=== PATIENT | female | born 1960 | race Caucasian/White ===

== ENCOUNTER 2022-08-13 21:19 | Emergency (ER) | payer OTHER ==
--- OUTSIDE RECORDS SUMMARY | 2022-08-13 21:22 | XMS REPORT | Clinical Summary ---
:1960 Author Organization [facility] MD [facility] Address [address] [place] [address] Care Team Providers Name Role Phone Svetlana Talamantes MD Unavailable Allergies Not on File Medications Not on file Active Problems Not on file Encounters Date Type Specialty Care Team Description 06/30/2022 Telephone Patient Access Services Ina Melgar RN after 08/13/2021 Social History Tobacco Use Types Packs/Day Years Used Date Smoking Tobacco: Never Assessed Sex Assigned at Date Recorded Not on file Job Start Date Occupation Industry Not on file Not on file Not on file Last Filed Vital Signs Not on file Plan of Treatment Not on file Results Not on fileafter 08/13/2021 Insurance Payer Benefit Plan / Subscriber ID Effective Phone Address T ype Group Dates [facility] MEDICARE [id number] 2022-Prese [address] Medicare [place]ALTH[employer]ARE [place] [id number] Care Teams [employer] Machin[employer] Relationship Specialty Start Date End Date Svetlana Talamantes MD PCP - External Referring Otolaryngology 06/29/[address] [id number] (work)
--- OUTSIDE RECORDS SUMMARY | 2022-08-13 21:33 | XMS REPORT | Continuity of Care Document ---
:1960 Author Organization [facility] t Address [address] [place] [address] [address]. [address] [place] [address] Care Team Providers Name Role Phone Trung SULLIVAN, Eve Mcnulty Primary Care Physician SYSTEM, PROVIDER NOT IN Attending Clinician Unavailable Thor Fernandez Attending Clinician Unavailable Adan SULLIVAN, Shen Sneed Attending Clinician SHEN ARELLANO Attending Clinician Unavailable Aayush SULLIVAN, Malick Mac Attending Clinician [phone] Fatoumata Marie Attending Clinician Ina Melgar RN Attending Clinician Unavailable Vinita SULLIVAN, Juventino Zambrano Attending Clinician SHEN ARELLANO Attending Clinician Unavailable Cindy Guajardo RN Attending Clinician Unavailable SHEN ARELLANO Admitting Clinician Unavailable Payers Payer Name Policy Type Policy Number Effective Date Expiration Date [facility] [id number] 2021 00:00:00 CYNTHIA MENJIVAR [facility] [id number] ADVANTAGE [facility] Problems Condition Condition Condition Status Onset Resolution Last Treating Co mments Source Name Details Category Date Date Treatment Clinician Date [place] Disease Active 2021-[address] right right 2-02 [facility] parotid parotid 00:00: Medical gland gland 00 Center [place] [facility] Disease Active 2021-09 [facility] right right 0-03 st parotid parotid 00:00: Hospita gland gland 00 l Benign Benign Disease Active Methodi essential essential 12-23 HTN HTN 00:00: Hospita 00 l Insulin Insulin Disease Active Methodi resistance resistance 12-23 00:00: Hospita 00 l Mixed Mixed Disease Active Methodi hyperlipid hyperlipid 12-23 emia emia 00:00: Hospita 00 l Panic Panic Disease Active Methodi disorder disorder 12-23 00:00: Hospita 00 l [id number] Lymphocyto Problem Com mon sis [facility] [id number] Primary Problem Comm on osteoarthr Spirit itis of - CHI right knee [facility] [id number] Primary Problem Comm on osteoarthr Spirit itis of CHI left knee [facility] [id number] Arthritis Problem Co mmon [id number] of both Spirit knees [facility] [id number] Leukocytos Problem Co mmon is, Spirit unspecifie - CHI d type [facility] Urinary Urinary Problem Common incontinen incontinen Sp jus ce ce [facility] [id number] TRENT Problem Common (generaliz Spirit ed anxiety - CHI disorder) [facility] [id number] Hypercalce Problem Com mon ana [facility] [id number] Tobacco Problem Commo n use Spirit disorder - [facility] [id number] Essential Problem Comm on (primary) Spirit hypertensi - CHI on [facility] [id number] Morbid Problem Commo n 9104 (severe) Spirit obesity - CHI due to [facility] Increased Other Problem Common blood elevated Spirit leukocyte white - 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 40.0-44.9, [facility] [id number] Depression Problem Com mon , major, Spirit single - CHI episode, [facility] [id number] Bilateral Problem Com mon primary Spirit osteoarthr - CHI itis of [facility] [id number] GERD Problem Common without Spirit esophagiti - CHI s [facility] [id number] Migraine Problem Comm on without Spirit aura and - CHI without St status kes migrainosu Medica l s, not Center intractabl e White White Problem Common blood cell blood cell Sp jus abnormalit abnormalit - CHI y y [facility] [id number] Abnormal Problem Comm on mammogram Spirit - CHI [facility] Allergies, Adverse Reactions, Alerts Allergy Allergy Status Severity Reaction(s) Onset Inactive Treating Comm ents Source Name Type Date Date Clinician Adhesive Propensi Active Rash 2021-09 Please Method i Tape-Destinee ty to 0-[address] icones adverse 00:00: tape when Hospit a reaction 00 doing IVs l s to drug No Known Propensi Active Method i Drug ty to 4-19 st Allergie adverse 00:00: Hospita s reaction 00 l s to drug NO KNOWN Allergy Active [facility] Social History Social Habit Start Date Stop Date Quantity Comments Source History SDOH [facility] Alcohol Frequency [facility] History SDOH [facility] Alcohol Std Drinks [facility] History SDOH [facility] Alcohol Binge Medical Sof[facility] ter History of tobacco Cigarette Smoker [facility] use of Medicine Exposure to 2022-07-28 2022-08-[address] [facility] SARS-CoV-2 (event) 00:00:00 16:48:00 [facility] Alcohol intake 2022-08-07 2022-08-07 [facility] of alcohol Medical Center (finding) History SDOH 2022-07-21 2022-07-[address] [facility] Alcohol Comment 00:00:00 00:00:00 Medical C enter Cigarettes smoked 2022-07-21 2022-07-[address] [facility] current (pack per 00:00:00 00:00:00 Medical Center day) - Reported Tobacco use and 2022-07-21 2022-07-[address] [facility] kes exposure 00:00:00 00:00:00 Medical Center History SDOH 2022-06-10 2022-06-10 0 [facility] Physical Activity 00:00:00 00:00:00 of [facility] evOLED DPW History SDOH 2022-06-10 2022-06-10 0 [facility] ge Physical Activity 00:00:00 00:00:00 of [facility] evOLED MPS Cigarette 2022-06-10 2022-06-10 [facility] pack-years 00:00:00 00:00:00 of Medicine Sex Assigned At [address] [facility] [address] kes 00:00:00 00:00:00 Medical Center Smoking Status Start Date Stop Date Source Current every day smoker 2022-07-21 00:00:00 [facility] Tobacco smoking consumption [facility] unknown Medications Ordered Filled Start Stop Current Ordering Indication Dosage Frequency Signature Comments Components Source Medication Medication Date Date Medication? Clinician (SIG) Name Name valsartan 2021-09 Yes 160mg QD Take [address] (DIOVAN) 2-03 mg by Lukes 160 MG 10:49: mouth Medical tablet 15 daily. [place] metoprolol 2021-09 Yes QD Take by [facility] shah-hydrochl 2-03 mouth Lukes orothiaz 10:49: daily. Medical 50-12.5 mg 15 [place] Tb24 amitriptyli 2021-09 Yes 100mg QD Take [address] (ELAVIL) 2-03 mg by Lukes 100 MG 10:49: mouth Medical tablet 15 nightly. [place] docusate 2021-09- Yes 100mg Q.5D Take 1 CHI S t sodium 2- 12-13 capsule Lukes (COLACE) 00:00: 23:59 (100 mg Medic al 100 MG 00 :00 total) by Center capsule mouth 2 (two) times daily for 10 days. ondansetron 2021-09- Yes 4mg Take [address] (ZOFRAN-ODT 2- 12-10 tablet (4 Reina kes ) 4 MG 00:00: 23:59 mg total) Medic al disintegrat 00 :00 by mouth Cent er ing tablet every 8 (eight) hours as needed for Nausea for up to 7 days. valsartan 2021-09 Yes 160mg QD Take [address] (DIOVAN) 2-02 mg by Lukes 160 MG 07:16: mouth Medical tablet 35 daily. [place] metoprolol 2021-09 Yes QD Take by [facility] shah-hydrochl 2-02 mouth Lukes orothiaz 07:16: daily. Medical 50-12.5 mg [address] [place] [address] amitriptyli 2021-09 Yes 100mg QD Take [address] (ELAVIL) 2-02 mg by Lukes 100 MG 07:16: mouth Medical tablet 35 nightly. [place] valsartan 2021-09 Yes 160mg QD Take [address] (DIOVAN) 2-02 mg by Lukes 160 MG 07:16: mouth Medical tablet 35 daily. [place] metoprolol 2021-09 Yes QD Take by [facility] shah-hydrochl 2-02 mouth Lukes orothiaz 07:16: daily. Medical 50-12.5 mg [address] [place] [address] amitriptyli 2021-09 Yes 100mg QD Take [address] [facility] (ELAVIL) 2-02 mg by Lukes 100 MG 07:16: mouth Medical tablet 35 nightly. [place] HYDROcodone 2021-09- Yes 1{tbl} Take [address] -acetaminop 2-02 12-12 tablet by Reina sheehan ([facility]) 00:00: 23:59 mouth Medi stephanie 10-325 mg 00 :00 every 6 Center per tablet (six) hours as needed for Pain for up to 10 days. Max Daily Amount: 4 tablets valsartan 2021-09 Yes 160mg QD Take [address] (DIOVAN) 1-15 mg by Lukes 160 MG 14:34: mouth Medical tablet 39 daily. [place] metoprolol 2021-09 Yes QD Take by [facility] shah-hydrochl 1-15 mouth Lukes orothiaz 14:34: daily. Medical 50-12.5 mg [address] [place] [address] amitriptyli 2021-09 Yes 100mg QD Take [address] (ELAVIL) 1-15 mg by Lukes 100 MG 14:34: mouth Medical tablet 39 nightly. [place] amitriptyli 2021-09 Yes 100mg QD 1 tablet M ethodi ne (ELAVIL) 0-07 ([address] 100 MG 10:59: total) Hospita tablet 19 nightly. l amitriptyli 2021-09 Yes 100mg QD 1 tablet M ethodi ne (ELAVIL) 0-07 ([address] 100 MG 10:59: total) Hospita tablet 19 nightly. l valsartan 2021-09 Yes [facility] (DIOVAN) 0-05 [place] 160 MG 14:55: of tablet 32 Medicin e Metoprolol- 2021-09 Yes [facility] Hydrochloro 0-05 [place] thiazide 14:55: of 50-12.5 MG 32 Medicin TB24 e Hyalgan 20 Hyalgan 20 2021-09 No 20mg C ommon mg mg 0-04 Spirit 00:00: - CHI 00 [facility] Hyalgan 20 Hyalgan 20 2021-09 No 20mg C ommon mg mg 0-04 Spirit 00:00: - CHI 00 [facility] Hyalgan 20 Hyalgan 20 2021-09 No 20mg C ommon mg mg 0-04 Spirit 00:00: - CHI 00 [facility] Hyalgan 20 Hyalgan 20 2021-09 No 20mg C ommon mg mg 0-04 Spirit 00:00: - CHI 00 [facility] Hyalgan 20 Hyalgan 20 2021-09 No 20mg C ommon mg mg 0-04 Spirit 00:00: - CHI 00 [facility] Hyalgan 20 Hyalgan 20 2021-09 No 20mg C ommon mg mg 0-04 Spirit 00:00: - CHI 00 [facility] Hyalgan 20 Hyalgan 20 2021-09 No 20mg C ommon mg mg 0-04 Spirit 00:00: - CHI 00 [facility] Hyalgan 20 Hyalgan 20 2021-09 No 20mg C ommon mg mg 0-04 Spirit 00:00: - CHI 00 [facility] Hyalgan 20 Hyalgan 20 2021-09 No 20mg C ommon mg mg 0-04 Spirit 00:00: - CHI 00 [facility] Hyalgan 20 Hyalgan 20 2021-09 No 20mg C ommon mg mg 0-04 Spirit 00:00: - CHI 00 [facility] Hyalgan 20 Hyalgan 20 2021-09 No 20mg C ommon mg mg 0-04 Spirit 00:00: - CHI 00 [facility] Hyalgan 20 Hyalgan 20 2021-09 No 20mg C ommon mg mg 0-04 Spirit 00:00: - CHI 00 [facility] Hyalgan 20 Hyalgan 20 2021-09 No 20mg C ommon mg mg 0-04 Spirit 00:00: - CHI 00 [facility] Hyalgan 20 Hyalgan 20 2021-09 No 20mg C ommon mg mg 0-04 Spirit 00:00: - CHI 00 [facility] Hyalgan 20 Hyalgan 20 2021-09 No 20mg C ommon mg mg 0-04 Spirit 00:00: - CHI 00 [facility] Hyalgan 20 Hyalgan 20 2021-09 No 20mg C ommon mg mg 0-04 Spirit 00:00: - CHI 00 [facility] Hyalgan 20 Hyalgan 20 2021-09 No 20mg C ommon mg mg 0-04 Spirit 00:00: - CHI 00 [facility] Hyalgan 20 Hyalgan 20 2021-09 No 20mg C ommon mg mg 0-04 Spirit 00:00: - CHI 00 [facility] Hyalgan 20 Hyalgan 20 2021-09 No 20mg C ommon mg mg 0-04 Spirit 00:00: - CHI 00 [facility] Hyalgan 20 Hyalgan 20 2021-09 No 20mg C ommon mg mg 0-04 Spirit 00:00: - CHI 00 [facility] Hyalgan 20 Hyalgan 20 2021-09 No 20mg C ommon mg mg 0-04 Spirit 00:00: - CHI 00 [facility] Hyalgan 20 Hyalgan 20 2021-09 No 20mg C ommon mg mg 0-04 Spirit 00:00: - CHI 00 [facility] Hyalgan 20 Hyalgan 20 2021-09 No 20mg C ommon mg mg 0-04 Spirit 00:00: - CHI 00 [facility] Hyalgan 20 Hyalgan 20 2021-09 No 20mg C ommon mg mg 0-04 Spirit 00:00: - CHI 00 [facility] Hyalgan 20 Hyalgan 20 2021-09 No 20mg C ommon mg mg 0-04 Spirit 00:00: - CHI 00 [facility] Hyalgan 20 Hyalgan 20 2021-09 No 20mg C ommon mg mg 0-04 Spirit 00:00: - CHI 00 [facility] Hyalgan 20 Hyalgan 20 2021-1 No 20mg C ommon mg mg 0-04 Spirit 00:00: - CHI [facility] Hyalgan 20 Hyalgan 20 2021-1 No 20mg C ommon mg mg 0-04 Spirit 00:00: - CHI [facility] Hyalgan 20 Hyalgan 20 2021-1 No 20mg C ommon mg mg 004 Spirit 00:00: - CHI [facility] Hyalgan 20 Hyalgan 20 2021-1 No 20mg C ommon mg mg 0 Spirit 00:00: - CHI 00 [facility] levofloxaci 2021-0 Yes [facility] [employer] (LEVAQUIN) 00:00: of 750 MG 00 Medicin tablet e Hyalgan 20 Hyalgan 20 2021-0 No 20mg C ommon mg mg 06-01 Spirit 00:00: - CHI [facility] Hyalgan 20 Hyalgan 20 2021-0 No 20mg C ommon mg mg 06-01 Spirit 00:00: - CHI [facility] Hyalgan 20 Hyalgan 20 2021-0 No 20mg C ommon mg mg 06-01 Spirit 00:00: - CHI [facility] Hyalgan 20 Hyalgan 20 2021-0 No 20mg C ommon mg mg 06-01 Spirit 00:00: - CHI [facility] Hyalgan 20 Hyalgan 20 2021-0 No 20mg C ommon mg mg 06-01 Spirit 00:00: - CHI [facility] Hyalgan 20 Hyalgan 20 2021-0 No 20mg C ommon mg mg 06-01 Spirit 00:00: - CHI [facility] Hyalgan 20 Hyalgan 20 2021-0 No 20mg C ommon mg mg 06-01 Spirit 00:00: - CHI [facility] Hyalgan 20 Hyalgan 20 2021-0 No 20mg C ommon mg mg 06-01 Spirit 00:00: - CHI [facility] Hyalgan 20 Hyalgan 20 2021-0 No 20mg C ommon mg mg 06-01 Spirit 00:00: - CHI [facility] Hyalgan 20 Hyalgan 20 2021-0 No 20mg C ommon mg mg 06-01 Spirit 00:00: - CHI 00 [facility] Hyalgan 20 Hyalgan 20 2021-0 No 20mg C ommon mg mg 06-01 Spirit 00:00: - CHI [facility] Hyalgan 20 Hyalgan 20 2021-0 No 20mg C ommon mg mg 06-01 Spirit 00:00: - CHI [facility] Hyalgan 20 Hyalgan 20 2021-0 No 20mg C ommon mg mg 06-01 Spirit 00:00: - CHI [facility] Hyalgan 20 Hyalgan 20 2021-0 No 20mg C ommon mg mg 06-01 Spirit 00:00: - CHI [facility] Hyalgan 20 Hyalgan 20 2021-0 No 20mg C ommon mg mg 06-01 Spirit 00:00: - CHI [facility] Hyalgan 20 Hyalgan 20 2021-0 No 20mg C ommon mg mg 06-01 Spirit 00:00: - CHI [facility] Hyalgan 20 Hyalgan 20 2021-0 No 20mg C ommon mg mg 06-01 Spirit 00:00: - CHI [facility] Hyalgan 20 Hyalgan 20 2021-0 No 20mg C ommon mg mg 06-01 Spirit 00:00: - CHI [facility] Hyalgan 20 Hyalgan 20 2021-0 No 20mg C ommon mg mg 06-01 Spirit 00:00: - CHI [facility] Hyalgan 20 Hyalgan 20 2021-0 No 20mg C ommon mg mg 06-01 Spirit 00:00: - CHI [facility] Hyalgan 20 Hyalgan 20 2021-0 No 20mg C ommon mg mg 06-01 Spirit 00:00: - CHI [facility] Hyalgan 20 Hyalgan 20 2021-0 No 20mg C ommon mg mg 06-01 Spirit 00:00: - CHI [facility] Hyalgan 20 Hyalgan 20 2021-0 No 20mg C ommon mg mg 06-01 Spirit 00:00: - CHI [facility] Hyalgan 20 Hyalgan 20 2021-0 No 20mg C ommon mg mg 06-01 Spirit 00:00: - CHI [facility] Hyalgan 20 Hyalgan 20 2021-0 No 20mg C ommon mg mg 06-01 Spirit 00:00: - CHI [facility] Hyalgan 20 Hyalgan 20 2021-0 No 20mg C ommon mg mg 06-01 Spirit 00:00: - CHI [facility] Hyalgan 20 Hyalgan 20 2021-0 No 20mg C ommon mg mg 06-01 Spirit 00:00: - CHI [facility] Hyalgan 20 Hyalgan 20 2021-0 No 20mg C ommon mg mg 06-01 Spirit 00:00: - CHI [facility] Hyalgan 20 Hyalgan 20 2021-0 No 20mg C ommon mg mg 06-01 Spirit 00:00: - CHI [facility] Hyalgan 20 Hyalgan 20 2021-0 No 20mg C ommon mg mg 06-01 Spirit 00:00: - CHI [facility] Hyalgan 20 Hyalgan 20 2021-0 No 20mg C ommon mg mg 06-01 Spirit 00:00: - CHI [facility] Hyalgan 20 Hyalgan 20 2021-0 No 20mg C ommon mg mg 06-01 Spirit 00:00: - CHI [facility] Hyalgan 20 Hyalgan 20 2021-0 No 20mg C ommon mg mg 06-01 Spirit 00:00: - CHI [facility] Hyalgan 20 Hyalgan 20 2021-0 No 20mg C ommon mg mg 06-01 Spirit 00:00: - CHI [facility] Hyalgan 20 Hyalgan 20 2021-0 No 20mg C ommon mg mg 06-01 Spirit 00:00: - CHI [facility] Hyalgan 20 Hyalgan 20 2021-0 No 20mg C ommon mg mg 06-01 Spirit 00:00: - CHI [facility] Hyalgan 20 Hyalgan 20 2021-0 No 20mg C ommon mg mg 06-01 Spirit 00:00: - CHI [facility] Hyalgan 20 Hyalgan 20 2021-0 No 20mg C ommon mg mg 06-01 Spirit 00:00: - CHI [facility] Kenalog Kenalog 2021-0 No 40mg Common (Triamcinol (Triamcinol 9- S pirit one) one) 00:00: - CHI 00 [facility] Naropin Naropin 2021-0 No 1mg Common (Ropivacain (Ropivacain 9-19 S pirit e HCl) e HCl) 00:00: - CHI [facility] Hyalgan 20 Hyalgan 20 2021-0 No 20mg C ommon mg mg 05-25 Spirit 00:00: - CHI [facility] Kenalog Kenalog 2021-0 No 40mg Common (Triamcinol (Triamcinol 9-19 S pirit one) one) 00:00: - CHI 00 [facility] Naropin Naropin 2021-0 No 1mg Common (Ropivacain (Ropivacain 9-19 S pirit e HCl) e HCl) 00:00: - CHI [facility] Hyalgan 20 Hyalgan 20 2021-0 No 20mg C ommon mg mg 05-25 Spirit 00:00: - CHI [facility] Kenalog Kenalog 2021-0 No 40mg Common (Triamcinol (Triamcinol 9-19 S pirit one) one) 00:00: - CHI 00 [facility] Kenalog Kenalog 2021-0 No 40mg Common (Triamcinol (Triamcinol 9-19 S pirit one) one) 00:00: - CHI [facility] Naropin Naropin 2021-0 No 1mg Common (Ropivacain (Ropivacain 9-19 S pirit e HCl) e HCl) 00:00: - CHI [facility] Hyalgan 20 Hyalgan 20 2021-0 No 20mg C ommon mg mg 05-25 Spirit 00:00: - CHI [facility] Naropin Naropin 2021-0 No 1mg Common (Ropivacain (Ropivacain 9-19 S pirit e HCl) e HCl) 00:00: - CHI [facility] Kenalog Kenalog 2021-0 No 40mg Common (Triamcinol (Triamcinol 9-19 S pirit one) one) 00:00: - CHI [facility] Naropin Naropin 2021-0 No 1mg Common (Ropivacain (Ropivacain 9-19 S pirit e HCl) e HCl) 00:00: - CHI [facility] Hyalgan 20 Hyalgan 20 2021-0 No 20mg C ommon mg mg 05-25 Spirit 00:00: - CHI [facility] Hyalgan 20 Hyalgan 20 2021-0 No 20mg C ommon mg mg 05-25 Spirit 00:00: - CHI [facility] Kenalog Kenalog 2021-0 No 40mg Common (Triamcinol (Triamcinol 9-19 S pirit one) one) 00:00: - CHI 00 [facility] Naropin Naropin 2021-0 No 1mg Common (Ropivacain (Ropivacain 9-19 S pirit e HCl) e HCl) 00:00: - CHI [facility] Hyalgan 20 Hyalgan 20 2021-0 No 20mg C ommon mg mg 05-25 Spirit 00:00: - CHI [facility] Kenalog Kenalog 2021-0 No 40mg Common (Triamcinol (Triamcinol 9-19 S pirit one) one) 00:00: - CHI [facility] Naropin Naropin 2021-0 No 1mg Common (Ropivacain (Ropivacain 9-19 S pirit e HCl) e HCl) 00:00: - CHI 00 [facility] Hyalgan 20 Hyalgan 20 2021-0 No 20mg C ommon mg mg 05-25 Spirit 00:00: - CHI [facility] Kenalog Kenalog 2021-0 No 40mg Common (Triamcinol (Triamcinol 9-19 S pirit one) one) 00:00: - CHI [facility] Naropin Naropin 2021-0 No 1mg Common (Ropivacain (Ropivacain 9-19 S pirit e HCl) e HCl) 00:00: - CHI [facility] Hyalgan 20 Hyalgan 20 2021-0 No 20mg C ommon mg mg 05-25 Spirit 00:00: - CHI [facility] Kenalog Kenalog 2021-0 No 40mg Common (Triamcinol (Triamcinol 9-19 S pirit one) one) 00:00: - CHI 00 [facility] Naropin Naropin 2021-0 No 1mg Common (Ropivacain (Ropivacain 9-19 S pirit e HCl) e HCl) 00:00: - CHI 00 [facility] Hyalgan 20 Hyalgan 20 2021-0 No 20mg C ommon mg mg 05-25 Spirit 00:00: - CHI [facility] Kenalog Kenalog 2021-0 No 40mg Common (Triamcinol (Triamcinol 9-19 S pirit one) one) 00:00: - CHI 00 [facility] Naropin Naropin 2021-0 No 1mg Common (Ropivacain (Ropivacain 9-19 S pirit e HCl) e HCl) 00:00: - CHI 00 [facility] Hyalgan 20 Hyalgan 20 2021-0 No 20mg C ommon mg mg 05-25 Spirit 00:00: - CHI [facility] Kenalog Kenalog 2021-0 No 40mg Common (Triamcinol (Triamcinol 9-19 S pirit one) one) 00:00: - CHI [facility] Naropin Naropin 2021-0 No 1mg Common (Ropivacain (Ropivacain 9-19 S pirit e HCl) e HCl) 00:00: - CHI 00 [facility] Hyalgan 20 Hyalgan 20 2021-0 No 20mg C ommon mg mg 05-25 Spirit 00:00: - CHI [facility] Kenalog Kenalog 2021-0 No 40mg Common (Triamcinol (Triamcinol 9-19 S pirit one) one) 00:00: - CHI [facility] Naropin Naropin 2021-0 No 1mg Common (Ropivacain (Ropivacain 9-19 S pirit e HCl) e HCl) 00:00: - CHI [facility] Hyalgan 20 Hyalgan 20 2021-0 No 20mg C ommon mg mg 05-25 Spirit 00:00: - CHI [facility] Kenalog Kenalog 2021-0 No 40mg Common (Triamcinol (Triamcinol 9-19 S pirit one) one) 00:00: - CHI 00 [facility] Naropin Naropin 2021-0 No 1mg Common (Ropivacain (Ropivacain 9-19 S pirit e HCl) e HCl) 00:00: - CHI 00 [facility] Hyalgan 20 Hyalgan 20 2021-0 No 20mg C ommon mg mg 05-25 Spirit 00:00: - CHI [facility] Kenalog Kenalog 2021-0 No 40mg Common (Triamcinol (Triamcinol 9-19 S pirit one) one) 00:00: - CHI 00 [facility] Naropin Naropin 2021-0 No 1mg Common (Ropivacain (Ropivacain 9-19 S pirit e HCl) e HCl) 00:00: - CHI 00 [facility] Hyalgan 20 Hyalgan 20 2021-0 No 20mg C ommon mg mg 05-25 Spirit 00:00: - CHI [facility] Kenalog Kenalog 0 No 40mg Common (Triamcinol (Triamcinol 9-19 S pirit one) one) 00:00: - CHI 00 [facility] Naropin Naropin 2021-0 No 1mg Common (Ropivacain (Ropivacain 9-19 S pirit e HCl) e HCl) 00:00: - CHI 00 [facility] Hyalgan 20 Hyalgan 20 2021-0 No 20mg C ommon mg mg 05-25 Spirit 00:00: - CHI [facility] Kenalog Kenalog 2021-0 No 40mg Common (Triamcinol (Triamcinol 9-19 S pirit one) one) 00:00: - CHI [facility] Naropin Naropin 2021-0 No 1mg Common (Ropivacain (Ropivacain 9-19 S pirit e HCl) e HCl) 00:00: - CHI [facility] Hyalgan 20 Hyalgan 20 2021-0 No 20mg C ommon mg mg 05-25 Spirit 00:00: - CHI [facility] Kenalog Kenalog 2021-0 No 40mg Common (Triamcinol (Triamcinol 9-19 S pirit one) one) 00:00: - CHI 00 [facility] Naropin Naropin 2021-0 No 1mg Common (Ropivacain (Ropivacain 9-19 S pirit e HCl) e HCl) 00:00: - CHI 00 [facility] Hyalgan 20 Hyalgan 20 2021-0 No 20mg C ommon mg mg 05-25 Spirit 00:00: - CHI [facility] Kenalog Kenalog 2021-0 No 40mg Common (Triamcinol (Triamcinol 9-19 S pirit one) one) 00:00: - CHI [facility] Naropin Naropin 2021-0 No 1mg Common (Ropivacain (Ropivacain 9-19 S pirit e HCl) e HCl) 00:00: - CHI 00 [facility] Hyalgan 20 Hyalgan 20 2021-0 No 20mg C ommon mg mg 05-25 Spirit 00:00: - CHI [facility] Kenalog Kenalog 0 No 40mg Common (Triamcinol (Triamcinol 9-19 S pirit one) one) 00:00: - CHI [facility] Naropin Naropin 2021-0 No 1mg Common (Ropivacain (Ropivacain 9-19 S pirit e HCl) e HCl) 00:00: - CHI 00 [facility] Hyalgan 20 Hyalgan 20 2021-0 No 20mg C ommon mg mg 05-25 Spirit 00:00: - CHI [facility] [facility] Kenalog Kenalog 2021-0 No 40mg Common (Triamcinol (Triamcinol 9-19 S pirit one) one) 00:00: - [facility] Naropin Naropin 2021-0 No 1mg Common (Ropivacain (Ropivacain 9-19 S pirit e HCl) e HCl) 00:00: - [facility] Hyalgan 20 Hyalgan 20 2021-0 No 20mg C ommon mg mg 05-25 Spirit 00:00: - [facility] Kenalog Kenalog 2021-0 No 40mg Common (Triamcinol (Triamcinol 9-19 S pirit one) one) 00:00: - [facility] 00 [facility] Naropin Naropin 2021-0 No 1mg Common (Ropivacain (Ropivacain 9-19 S pirit e HCl) e HCl) 00:00: - [facility] 00 [facility] Hyalgan 20 Hyalgan 20 2021-0 No 20mg C ommon mg mg 05-25 Spirit 00:00: - [facility] Kenalog Kenalog 2021-0 No 40mg Common (Triamcinol (Triamcinol 9-19 S pirit one) one) 00:00: - [facility] Naropin Naropin 2021-0 No 1mg Common (Ropivacain (Ropivacain 9-19 S pirit e HCl) e HCl) 00:00: - [facility] Hyalgan 20 Hyalgan 20 2021-0 No 20mg C ommon mg mg 05-25 Spirit 00:00: - [facility] Kenalog Kenalog 0 No 40mg Common (Triamcinol (Triamcinol 9-19 S pirit one) one) 00:00: - [facility] Naropin Naropin 2021-0 No 1mg Common (Ropivacain (Ropivacain 9-19 S pirit e HCl) e HCl) 00:00: - [facility] Hyalgan 20 Hyalgan 20 2021-0 No 20mg C ommon mg mg 05-25 Spirit 00:00: - [facility] Kenalog Kenalog 2021-0 No 40mg Common (Triamcinol (Triamcinol 9-19 S pirit one) one) 00:00: - [facility] Naropin Naropin 2021-0 No 1mg Common (Ropivacain (Ropivacain 9-19 S pirit e HCl) e HCl) 00:00: - [facility] Hyalgan 20 Hyalgan 20 2021-0 No 20mg C ommon mg mg 05-25 Spirit 00:00: - [facility] Kenalog Kenalog 2021-0 No 40mg Common (Triamcinol (Triamcinol 9-19 S pirit one) one) 00:00: - [facility] 00 [facility] Naropin Naropin 2021-0 No 1mg Common (Ropivacain (Ropivacain 9-19 S pirit e HCl) e HCl) 00:00: - [facility] 00 [facility] Hyalgan 20 Hyalgan 20 2021-0 No 20mg C ommon mg mg 05-25 Spirit 00:00: - [facility] Kenalog Kenalog 2021-0 No 40mg Common (Triamcinol (Triamcinol 9-19 S pirit one) one) 00:00: - [facility] Naropin Naropin 2021-0 No 1mg Common (Ropivacain (Ropivacain 9-19 S pirit e HCl) e HCl) 00:00: - [facility] Hyalgan 20 Hyalgan 20 2021-0 No 20mg C ommon mg mg 05-25 Spirit 00:00: - [facility] Kenalog Kenalog 2021-0 No 40mg Common (Triamcinol (Triamcinol 9-19 S pirit one) one) 00:00: - [facility] Naropin Naropin 2021-0 No 1mg Common (Ropivacain (Ropivacain 9-19 S pirit e HCl) e HCl) 00:00: - [facility] Hyalgan 20 Hyalgan 20 2021-0 No 20mg C ommon mg mg 05-25 Spirit 00:00: - [facility] Kenalog Kenalog 2021-0 No 40mg Common (Triamcinol (Triamcinol 9-19 S pirit one) one) 00:00: - [facility] Naropin Naropin 2021-0 No 1mg Common (Ropivacain (Ropivacain 9-19 S pirit e HCl) e HCl) 00:00: - [facility] Hyalgan 20 Hyalgan 20 2021-0 No 20mg C ommon mg mg 05-25 Spirit 00:00: - [facility] Kenalog Kenalog 2021-0 No 40mg Common (Triamcinol (Triamcinol 9-19 S pirit one) one) 00:00: - [facility] 00 [facility] Naropin Naropin 2021-0 No 1mg Common (Ropivacain (Ropivacain 9-19 S pirit e HCl) e HCl) 00:00: - [facility] 00 [facility] Hyalgan 20 Hyalgan 20 2021-0 No 20mg C ommon mg mg 05-25 Spirit 00:00: - [facility] Kenalog Kenalog 2021-0 No 40mg Common (Triamcinol (Triamcinol 9-19 S pirit one) one) 00:00: - [facility] Naropin Naropin 2021-0 No 1mg Common (Ropivacain (Ropivacain 9-19 S pirit e HCl) e HCl) 00:00: - [facility] Hyalgan 20 Hyalgan 20 2021-0 No 20mg C ommon mg mg 05-25 Spirit 00:00: - [facility] Kenalog Kenalog 0 No 40mg Common (Triamcinol (Triamcinol 9-19 S pirit one) one) 00:00: - [facility] Naropin Naropin 2021-0 No 1mg Common (Ropivacain (Ropivacain 9-19 S pirit e HCl) e HCl) 00:00: - [facility] Hyalgan 20 Hyalgan 20 2021-0 No 20mg C ommon mg mg 05-25 Spirit 00:00: - [facility] Kenalog Kenalog 2021-0 No 40mg Common (Triamcinol (Triamcinol 9-19 S pirit one) one) 00:00: - [facility] Naropin Naropin 2021-0 No 1mg Common (Ropivacain (Ropivacain 9-19 S pirit e HCl) e HCl) 00:00: - [facility] Hyalgan 20 Hyalgan 20 2021-0 No 20mg C ommon mg mg 05-25 Spirit 00:00: - [facility] Kenalog Kenalog 2021-0 No 40mg Common (Triamcinol (Triamcinol 9-19 S pirit one) one) 00:00: - [facility] Naropin Naropin 2021-0 No 1mg Common (Ropivacain (Ropivacain 9-19 S pirit e HCl) e HCl) 00:00: - [facility] 00 [facility] Hyalgan 20 Hyalgan 20 2021-0 No 20mg C ommon mg mg 05-25 Spirit 00:00: - [facility] Kenalog Kenalog 2021-0 No 40mg Common (Triamcinol (Triamcinol 9-19 S pirit one) one) 00:00: - [facility] Naropin Naropin 0 No 1mg Common (Ropivacain (Ropivacain 9-19 S pirit e HCl) e HCl) 00:00: - [facility] Hyalgan 20 Hyalgan 20 2021-0 No 20mg C ommon mg mg 05-25 Spirit 00:00: - [facility] Kenalog Kenalog 0 No 40mg Common (Triamcinol (Triamcinol 9-19 S pirit one) one) 00:00: - [facility] Naropin Naropin 0 No 1mg Common (Ropivacain (Ropivacain 9-19 S pirit e HCl) e HCl) 00:00: - [facility] Hyalgan 20 Hyalgan 20 2021-0 No 20mg C ommon mg mg 05-25 Spirit 00:00: - [facility] Kenalog Kenalog 0 No 40mg Common (Triamcinol (Triamcinol 9-19 S pirit one) one) 00:00: - [facility] Naropin Naropin 2021-0 No 1mg Common (Ropivacain (Ropivacain 9-19 S pirit e HCl) e HCl) 00:00: - [facility] Kenal[place] Kenalog 2021-0 No 40mg Common (Triamcinol (Triamcinol 9-19 S pirit one) one) 00:00: - [facility] 00 [facility] Naropin Naropin 2021-0 No 1mg Common (Ropivacain (Ropivacain 9-19 S pirit e HCl) e HCl) 00:00: - [facility] Hyalgan 20 Hyalgan 20 2021-0 No 20mg C ommon mg mg 05-25 Spirit 00:00: - [facility] Hyalgan 20 Hyalgan 20 2021-0 No 20mg C ommon mg mg 05-25 Spirit 00:00: - [facility] Kenalog Kenalog 0 No 40mg Common (Triamcinol (Triamcinol 9-19 S pirit one) one) 00:00: - [facility] Naropin Naropin 0 No 1mg Common (Ropivacain (Ropivacain 9-19 S pirit e HCl) e HCl) 00:00: - [facility] Hyalgan 20 Hyalgan 20 2021-0 No 20mg C ommon mg mg 05-25 Spirit 00:00: - [facility] metoprolol 2021-0 Yes 50mg QD Take 1 Metho di succinate 9-02 tablet (50 st XL 00:00: mg total) [facility] (TOPROL-XL) 00 by mouth l 50 mg 24 hr daily. tablet metoprolol 2021-0 Yes 50mg QD Take 1 Metho di succinate 9-02 tablet (50 st XL 00:00: mg total) [facility] (TOPROL-XL) 00 by mouth l 50 mg 24 hr daily. tablet valsartan-h 0 Yes 1{tbl} QD Take 1 Me thodi ydrochlorot 8-[address] hiazide 00:00: mouth [facility] (DIOVAN-HCT 00 daily. l ) 160-12.5 mg per tablet valsartan-h 2021-0 Yes 1{tbl} QD Take 1 Me thodi ydrochlorot 8-[address] hiazide 00:00: mouth [facility] (DIOVAN-HCT 00 daily. l ) 160-12.5 mg per tablet Sulfamethox Sulfamethox 2021-0 2021- No 1{table BID Sulfametho azole-Trime azole-Trime 03-13 07-18 t} xazole-Tri thoprim thoprim 00:00: 00:00 methoprim 800-160 MG 800-160 MG 00 :00 800-160 MG Nitrofurant Nitrofurant 2021- No BID Nitrofuran oin Monohyd oin Monohyd 03-0505 toin Macro 100 Macro 100 00:00: 00:00 Monohyd MG MG 00 :00 Macro 100 MG Kenalog Kenalog 2021-0 No 40mg Common (Triamcinol (Triamcinol 6-06 S pirit one) one) 00:00: - [facility] 00 [facility] Bupivicaine Bupivicaine 2021-0 No 2.5mg Common [place] 6- Spirit 00:00: - [facility] 00 [facility] Kenalog Kenalog 2021-0 No 40mg Common (Triamcinol (Triamcinol 6-06 S pirit one) one) 00:00: - [facility] 00 [facility] Bupivicaine Bupivicaine 2021-0 No 2.5mg Common [place] 6- Spirit 00:00: - [facility] 00 [facility] Kenalog Kenalog 2021-0 No 40mg Common (Triamcinol (Triamcinol 6-06 S pirit one) one) 00:00: - [facility] 00 [facility] Bupivicaine Bupivicaine 2021-0 No 2.5mg Common [place] 6-06 Spirit 00:00: - [facility] 00 [facility] Bupivicaine Bupivicaine 2021-0 No 2.5mg Common [place] 6- Spirit 00:00: - [facility] 00 [facility] Kenalog Kenalog 2021-0 No 40mg Common (Triamcinol (Triamcinol 6-06 S pirit one) one) 00:00: - [facility] 00 [facility] Kenalog Kenalog 2021-0 No 40mg Common (Triamcinol (Triamcinol 6-06 S pirit one) one) 00:00: - [facility] 00 [facility] Bupivicaine Bupivicaine 2021-0 No 2.5mg Common [place] 6-06 Spirit 00:00: - [facility] 00 [facility] Bupivicaine Bupivicaine 2022-0 No 2.5mg Common [place] 6-06 Spirit 00:00: - [facility] 00 [facility] Kenalog Kenalog 2021-0 No 40mg Common (Triamcinol (Triamcinol 6-06 S pirit one) one) 00:00: - [facility] 00 [facility] Alexanderalog Kenalog 2021-0 No 40mg Common (Triamcinol (Triamcinol 6-06 S pirit one) one) 00:00: - [facility] 00 [facility] Bupivicaine Bupivicaine 2-0 No 2.5mg Common [place] 6-06 Spirit 00:00: - [facility] 00 [facility] Bupivicaine Bupivicaine 2-0 No 2.5mg Common [place] 6-06 Spirit 00:00: - [facility] 00 [facility] Alexanderalog Kenalog 2021-0 No 40mg Common (Triamcinol (Triamcinol 6-06 S pirit one) one) 00:00: - [facility] 00 [facility] [place] Kenalog 2021-0 No 40mg Common (Triamcinol (Triamcinol 6-06 S pirit one) one) 00:00: - [facility] 00 [facility] Bupivicaine Bupivicaine 2-0 No 2.5mg Common [place] 6-06 Spirit 00:00: - [facility] 00 [facility] Bupivicaine Bupivicaine 2-0 No 2.5mg Common [place] 6-06 Spirit 00:00: - [facility] 00 [facility] Kenalog Kenalog 2021-0 No 40mg Common (Triamcinol (Triamcinol 6-06 S pirit one) one) 00:00: - [facility] 00 [facility] Kenalog Kenalog 2-0 No 40mg Common (Triamcinol (Triamcinol 6-06 S pirit one) one) 00:00: - [facility] 00 [facility] Bupivicaine Bupivicaine 2-0 No 2.5mg Common [place] 6-06 Spirit 00:00: - [facility] 00 [facility] Bupivicaine Bupivicaine 2-0 No 2.5mg Common [place] 6-06 Spirit 00:00: - [facility] 00 [facility] Kenalog Kenalog 2-0 No 40mg Common (Triamcinol (Triamcinol 6-06 S pirit one) one) 00:00: - [facility] 00 [facility] Kenalog Kenalog 2-0 No 40mg Common (Triamcinol (Triamcinol 6-06 S pirit one) one) 00:00: - [facility] 00 [facility] Bupivicaine Bupivicaine 2-0 No 2.5mg Common [place] 6- Spirit 00:00: - [facility] 00 [facility] Bupivicaine Bupivicaine 2-0 No 2.5mg Common [place] 6- Spirit 00:00: - [facility] 00 [facility] Kenalog Kenalog 2021-0 No 40mg Common (Triamcinol (Triamcinol 6-06 S pirit one) one) 00:00: - [facility] 00 [facility] Kenalog Kenalog 2021-0 No 40mg Common (Triamcinol (Triamcinol 6-06 S pirit one) one) 00:00: - [facility] 00 [facility] Bupivicaine Bupivicaine 2-0 No 2.5mg Common [place] 6- Spirit 00:00: - [facility] 00 [facility] Bupivicaine Bupivicaine 2-0 No 2.5mg Common [place] 6- Spirit 00:00: - [facility] 00 [facility] Kenalog Kenalog 2-0 No 40mg Common (Triamcinol (Triamcinol 6-06 S pirit one) one) 00:00: - [facility] 00 [facility] Kenalog Kenalog 2-0 No 40mg Common (Triamcinol (Triamcinol 6-06 S pirit one) one) 00:00: - [facility] 00 [facility] Bupivicaine Bupivicaine 2-0 No 2.5mg Common [place] 6 Spirit 00:00: - [facility] 00 [facility] Bupivicaine Bupivicaine 2-0 No 2.5mg Common [place] 6 Spirit 00:00: - [facility] 00 [facility] Kenalog Kenalog 2-0 No 40mg Common (Triamcinol (Triamcinol 6-06 S pirit one) one) 00:00: - [facility] 00 [facility] Kenalog Kenalog 2-0 No 40mg Common (Triamcinol (Triamcinol 6-06 S pirit one) one) 00:00: - [facility] 00 [facility] Bupivicaine Bupivicaine 2-0 No 2.5mg Common [place] 6-06 Spirit 00:00: - [facility] 00 [facility] Bupivicaine Bupivicaine 2-0 No 2.5mg Common [place] 6-06 Spirit 00:00: - [facility] 00 [facility] Kenalog Kenalog 2-0 No 40mg Common (Triamcinol (Triamcinol 6-06 S pirit one) one) 00:00: - [facility] 00 [facility] Bupivicaine Bupivicaine 2-0 No 2.5mg Common [place] 6-06 Spirit 00:00: - [facility] 00 [facility] Bupivicaine Bupivicaine 2-0 No 2.5mg Common [place] 6-06 Spirit 00:00: - [facility] 00 [facility] Kenalog Kenalog 2-0 No 40mg Common (Triamcinol (Triamcinol 6-06 S pirit one) one) 00:00: - [facility] 00 [facility] Kenalog Kenalog 2-0 No 40mg Common (Triamcinol (Triamcinol 6-06 S pirit one) one) 00:00: - [facility] 00 [facility] Bupivicaine Bupivicaine 2-0 No 2.5mg Common [place] 6-06 Spirit 00:00: - [facility] 00 [facility] Bupivicaine Bupivicaine 2-0 No 2.5mg Common [place] 6-06 Spirit 00:00: - [facility] 00 [facility] Kenalog Kenalog 2-0 No 40mg Common (Triamcinol (Triamcinol 6-06 S pirit one) one) 00:00: - [facility] 00 [facility] Kenalog Kenalog 2-0 No 40mg Common (Triamcinol (Triamcinol 6-06 S pirit one) one) 00:00: - [facility] 00 [facility] Bupivicaine Bupivicaine 2-0 No 2.5mg Common [place] 6-06 Spirit 00:00: - [facility] 00 [facility] Bupivicaine Bupivicaine 2-0 No 2.5mg Common [place] 6-06 [facility] 00:00: - [facility] 00 [facility] Kenalog Kenalog 2021-0 No 40mg Common (Triamcinol (Triamcinol 6-06 S pirit one) one) 00:00: - [facility] 00 [facility] Kenalog Kenalog 2021-0 No 40mg Common (Triamcinol (Triamcinol 6-06 S pirit one) one) 00:00: - [facility] 00 [facility] Bupivicaine Bupivicaine 2-0 No 2.5mg Common [place] 6-06 Spirit 00:00: - [facility] 00 [facility] Bupivicaine Bupivicaine 2021-0 No 2.5mg Common [place] 6-06 Spirit 00:00: - [facility] 00 [facility] Kenalog Kenalog 2021-0 No 40mg Common (Triamcinol (Triamcinol 6-06 S pirit one) one) 00:00: - [facility] 00 [facility] Kenalog Kenalog 2021-0 No 40mg Common (Triamcinol (Triamcinol 6-06 S pirit one) one) 00:00: - [facility] 00 [facility] Bupivicaine Bupivicaine 2021-0 No 2.5mg Common [place] 6-06 Spirit 00:00: - [facility] 00 [facility] Bupivicaine Bupivicaine 2-0 No 2.5mg Common [place] 6-06 Spirit 00:00: - [facility] 00 [facility] Kenal[place] Kenalog 2-0 No 40mg Common (Triamcinol (Triamcinol 6-06 S pirit one) one) 00:00: - [facility] 00 [facility] Kenalog Kenalog 2-0 No 40mg Common (Triamcinol (Triamcinol 6-06 S pirit one) one) 00:00: - [facility] 00 [facility] Bupivicaine Bupivicaine 2022-0 No 2.5mg Common [place] 6-06 Spirit 00:00: - [facility] 00 [facility] Bupivicaine Bupivicaine 2-0 No 2.5mg Common [place] 6-06 Spirit 00:00: - [facility] 00 [facility] Kenalog Kenalog 2-0 No 40mg Common (Triamcinol (Triamcinol 6-06 S pirit one) one) 00:00: - [facility] 00 [facility] Kenal[place] Kenalog 2-0 No 40mg Common (Triamcinol (Triamcinol 6-06 S pirit one) one) 00:00: - [facility] 00 [facility] Bupivicaine Bupivicaine 2-0 No 2.5mg Common [place] 6-06 Spirit 00:00: - [facility] 00 [facility] Bupivicaine Bupivicaine 2-0 No 2.5mg Common [place] 6-06 Spirit 00:00: - [facility] 00 [facility] Kenalog Kenalog 2-0 No 40mg Common (Triamcinol (Triamcinol 6-06 S pirit one) one) 00:00: - [facility] 00 [facility] Kenalog Kenalog 2-0 No 40mg Common (Triamcinol (Triamcinol 6-06 S pirit one) one) 00:00: - [facility] 00 [facility] Bupivicaine Bupivicaine 2-0 No 2.5mg Common [place] 6-06 [facility] 00:00: - [facility] 00 [facility] Bupivicaine Bupivicaine 2-0 No 2.5mg Common [place] 6-06 Spirit 00:00: - [facility] 00 [facility] Kenalog Kenalog 2-0 No 40mg Common (Triamcinol (Triamcinol 6-06 S pirit one) one) 00:00: - [facility] 00 [facility] Kenal[place] Kenalog 2-0 No 40mg Common (Triamcinol (Triamcinol 6-06 S pirit one) one) 00:00: - [facility] 00 [facility] Bupivicaine Bupivicaine 2-0 No 2.5mg Common [place] 6-06 [facility] 00:00: - [facility] 00 [facility] Bupivicaine Bupivicaine 2-0 No 2.5mg Common [place] 6-06 [facility] 00:00: - [facility] 00 [facility] Kenalog Kenalog 2021-0 No 40mg Common (Triamcinol (Triamcinol 6-06 S pirit one) one) 00:00: - [facility] 00 [facility] Kenalog Kenalog 2021-0 No 40mg Common (Triamcinol (Triamcinol 6-06 S pirit one) one) 00:00: - [facility] 00 [facility] Bupivicaine Bupivicaine 2021-0 No 2.5mg Common [place] 6- [facility] 00:00: - [facility] 00 [facility] Bupivicaine Bupivicaine 2-0 No 2.5mg Common [place] 6- [facility] 00:00: - [facility] 00 [facility] Kenalog Kenalog 2021-0 No 40mg Common (Triamcinol (Triamcinol 6-06 S pirit one) one) 00:00: - [facility] 00 [facility] Ken[place] Kenalog 2021-0 No 40mg Common (Triamcinol (Triamcinol 6-06 S pirit one) one) 00:00: - [facility] 00 [facility] Kenal[place] Kenalog 2021-0 No 40mg Common (Triamcinol (Triamcinol 6-06 S pirit one) one) 00:00: - [facility] 00 [facility] Bupivicaine Bupivicaine 2021-0 No 2.5mg Common [place] [facility]- [facility] 00:00: - [facility] 00 [facility] Bupivicaine Bupivicaine 2021-0 No 2.5mg Common [place] 6-06 [facility] 00:00: - [facility] 00 [facility] Ken[place]og Kenalog 2-0 No 40mg Common (Triamcinol (Triamcinol 6-06 S pirit one) one) 00:00: - [facility] 00 [facility] Ken[place] Kenalog 2-0 No 40mg Common (Triamcinol (Triamcinol 6-06 S pirit one) one) 00:00: - [facility] 00 [facility] Bupivicaine Bupivicaine 2-0 No 2.5mg Common [place] [facility]- [facility] 00:00: - [facility] 00 [facility] Bupivicaine Bupivicaine 2-0 No 2.5mg Common [place] 6-06 [facility] 00:00: - [facility] 00 [facility] Ken[place]og Kenalog 2-0 No 40mg Common (Triamcinol (Triamcinol 6-06 S pirit one) one) 00:00: - [facility] 00 [facility] Ken[place] Kenalog 2-0 No 40mg Common (Triamcinol (Triamcinol 6-06 S pirit one) one) 00:00: - [facility] 00 [facility] Bupivicaine Bupivicaine 2-0 No 2.5mg Common [place] [facility]- [facility] 00:00: - [facility] 00 [facility] Bupivicaine Bupivicaine 2-0 No 2.5mg Common [place] 6- [facility] 00:00: - [facility] 00 [facility] Kenalog Kenalog 2-0 No 40mg Common (Triamcinol (Triamcinol 6-06 S pirit one) one) 00:00: - [facility] 00 [facility] Ken[place] Kenalog 2-0 No 40mg Common (Triamcinol (Triamcinol 6-06 S pirit one) one) 00:00: - [facility] 00 [facility] Bupivicaine Bupivicaine 2-0 No 2.5mg Common [place] [facility]- [facility] 00:00: - [facility] 00 [facility] Bupivicaine Bupivicaine 2-0 No 2.5mg Common [place] 6-06 [facility] 00:00: - [facility] 00 [facility] Ken[place] Kenalog 2-0 No 40mg Common (Triamcinol (Triamcinol 6-06 S pirit one) one) 00:00: - [facility] 00 [facility] Ken[place] Kenalog 2-0 No 40mg Common (Triamcinol (Triamcinol 6-06 S pirit one) one) 00:00: - [facility] 00 [facility] Bupivicaine Bupivicaine 2-0 No 2.5mg Common [place] 6-06 [facility] 00:00: - [facility] 00 [facility] Bupivicaine Bupivicaine 2-0 No 2.5mg Common [place] 6-06 [facility] 00:00: - [facility] 00 [facility] Ken[place] Kenalog 2021-0 No 40mg Common (Triamcinol (Triamcinol 6-06 S pirit one) one) 00:00: - [facility] 00 [facility] [place] Kenalog 2021-0 No 40mg Common (Triamcinol (Triamcinol 6-06 S pirit one) one) 00:00: - [facility] 00 [facility] Bupivicaine Bupivicaine 2-0 No 2.5mg Common [place] [facility]- [facility] 00:00: - [facility] 00 [facility] Bupivicaine Bupivicaine 2-0 No 2.5mg Common [place] 02-09 [facility] 00:00: - [facility] 00 [facility] Ken[place] Kenalog 2021-0 No 40mg Common (Triamcinol (Triamcinol 6-06 S pirit one) one) 00:00: - [facility] 00 [facility] [place] Kenalog 2021-0 No 40mg Common (Triamcinol (Triamcinol 6-06 S pirit one) one) 00:00: - [facility] 00 [facility] Bupivicaine Bupivicaine 2-0 No 2.5mg Common [place] 02-09 [facility] 00:00: - [facility] 00 [facility] Bupivicaine Bupivicaine 2021-0 No 2.5mg Common [place] [facility]- [facility] 00:00: - [facility] 00 [facility] Ken[place] Kenalog 2-0 No 40mg Common (Triamcinol (Triamcinol 6-06 S pirit one) one) 00:00: - [facility] 00 [facility] Ken[place] Kenalog 2-0 No 40mg Common (Triamcinol (Triamcinol 6-06 S pirit one) one) 00:00: - [facility] 00 [facility] Bupivicaine Bupivicaine 2-0 No 2.5mg Common [place] [facility]- [facility] 00:00: - [facility] 00 [facility] Bupivicaine Bupivicaine 2021-0 No 2.5mg Common [place] 6-06 [facility] 00:00: - [facility] 00 [facility] Ken[place] Kenalog 2021-0 No 40mg Common (Triamcinol (Triamcinol 6-06 S pirit one) one) 00:00: - [facility] 00 [facility] Ken[place] Kenalog 2021-0 No 40mg Common (Triamcinol (Triamcinol 6-06 S pirit one) one) 00:00: - [facility] 00 [facility] Ken[place] Kenalog 2021-0 No 40mg Common (Triamcinol (Triamcinol 6-06 S pirit one) one) 00:00: - [facility] 00 [facility] Bupivicaine Bupivicaine 2021-0 No 2.5mg Common [place] 6-06 [facility] 00:00: - [facility] 00 [facility] Bupivicaine Bupivicaine 2021-0 No 2.5mg Common [place] 6-06 [facility] 00:00: - [facility] 00 [facility] Ken[place] Kenalog 2021-0 No 40mg Common (Triamcinol (Triamcinol 3-09 S pirit one) one) 00:00: - [facility] 00 [facility] Ken[place] Kenalog 2021-0 No 40mg Common (Triamcinol (Triamcinol 3-09 S pirit one) one) 00:00: - [facility] 00 [facility] Ken[place] Kenalog 2021-0 No 40mg Common (Triamcinol (Triamcinol 3-09 S pirit one) one) 00:00: - [facility] 00 [facility] Ken[place] Kenalog 2021-0 No 40mg Common (Triamcinol (Triamcinol 3-09 S pirit one) one) 00:00: - [facility] 00 [facility] [place] Kenalog 2021-0 No 40mg Common (Triamcinol (Triamcinol 3-09 S pirit one) one) 00:00: - [facility] 00 [facility] Ken[place] Kenalog 2021-0 No 40mg Common (Triamcinol (Triamcinol 3-09 S pirit one) one) 00:00: - [facility] 00 [facility] Ken[place] Kenalog 0 No 40mg Common (Triamcinol (Triamcinol 3-09 S pirit one) one) 00:00: - [facility] 00 [facility] Ken[place] Kenalog 0 No 40mg Common (Triamcinol (Triamcinol 3-09 S pirit one) one) 00:00: - [facility] 00 [facility] Ken[place] Kenalog 0 No 40mg Common (Triamcinol (Triamcinol 3-09 S pirit one) one) 00:00: - [facility] 00 [facility] Kenalog Kenalog 0 No 40mg Common (Triamcinol (Triamcinol 3-09 S pirit one) one) 00:00: - [facility] 00 [facility] Kenalog Kenalog 0 No 40mg Common (Triamcinol (Triamcinol 3-09 S pirit one) one) 00:00: - [facility] 00 [facility] Kenalog Kenalog 0 No 40mg Common (Triamcinol (Triamcinol 3-09 S pirit one) one) 00:00: - [facility] [facility] Ken[facility] No 40mg Common (Triamcinol (Triamcinol 3-09 S pirit one) one) 00:00: - [facility] Kenalog Kenalog 0 No 40mg Common (Triamcinol (Triamcinol 3-09 S pirit one) one) 00:00: - [facility] Kenalog Kenalog 0 No 40mg Common (Triamcinol (Triamcinol 3-09 S pirit one) one) 00:00: - [facility] Kenalog Kenalog 2021-0 No 40mg Common (Triamcinol (Triamcinol 3-09 S pirit one) one) 00:00: - [facility] Kenalog Kenalog 2021-0 No 40mg Common (Triamcinol (Triamcinol 3-09 S pirit one) one) 00:00: - [facility] Kenalog Kenalog 2021-0 No 40mg Common (Triamcinol (Triamcinol 3-09 S pirit one) one) 00:00: - [facility] Kenalog Kenalog 2021-0 No 40mg Common (Triamcinol (Triamcinol 3-09 S pirit one) one) 00:00: - [facility] Kenalog Kenalog 2021-0 No 40mg Common (Triamcinol (Triamcinol 3-09 S pirit one) one) 00:00: - [facility] Kenalog Kenalog 2021-0 No 40mg Common (Triamcinol (Triamcinol 3-09 S pirit one) one) 00:00: - [facility] Kenalog Kenalog 2021-0 No 40mg Common (Triamcinol (Triamcinol 3-09 S pirit one) one) 00:00: - [facility] Kenalog Kenalog 2021-0 No 40mg Common (Triamcinol (Triamcinol 3-09 S pirit one) one) 00:00: - [facility] Kenalog Kenalog 2021-0 No 40mg Common (Triamcinol (Triamcinol 3-09 S pirit one) one) 00:00: - [facility] Kenalog Kenalog 2021-0 No 40mg Common (Triamcinol (Triamcinol 3-09 S pirit one) one) 00:00: - [facility] Kenalog Kenalog 2021-0 No 40mg Common (Triamcinol (Triamcinol 3-09 S pirit one) one) 00:00: - [facility] Kenalog Kenalog 2021-0 No 40mg Common (Triamcinol (Triamcinol 3-09 S pirit one) one) 00:00: - [facility] Kenalog Kenalog 2021-0 No 40mg Common (Triamcinol (Triamcinol 3-09 S pirit one) one) 00:00: - [facility] Kenalog Kenalog 2021-0 No 40mg Common (Triamcinol (Triamcinol 3-09 S pirit one) one) 00:00: - [facility] Wai Munozalog 0 No 40mg Common (Triamcinol (Triamcinol 3-09 S pirit one) one) 00:00: - [facility] Wai Kenalog 0 No 40mg Common (Triamcinol (Triamcinol 3-09 S pirit one) one) 00:00: - [facility] Wai Kenalog 0 No 40mg Common (Triamcinol (Triamcinol 3-09 S pirit one) one) 00:00: - [facility] Wai Carreno 2021-0 No 40mg Common (Triamcinol (Triamcinol 3-09 S pirit one) one) 00:00: - [facility] Wai Carreno 0 No 40mg Common (Triamcinol (Triamcinol 3-09 S pirit one) one) 00:00: - [facility] Wai Kenjana 0 No 40mg Common (Triamcinol (Triamcinol 3-09 S pirit one) one) 00:00: - [facility] Wai Kenjana 0 No 40mg Common (Triamcinol (Triamcinol 3-09 S pirit one) one) 00:00: - [facility] Wai Kenjana 2021-0 No 40mg Common (Triamcinol (Triamcinol 3-09 S pirit one) one) 00:00: - [facility] Wai Kenalog 0 No 40mg Common (Triamcinol (Triamcinol 3-09 S pirit one) one) 00:00: - [facility] Wai Kenjana 2021-0 No 40mg Common (Triamcinol (Triamcinol 3-09 S pirit one) one) 00:00: - [facility] [place] 3 [place] 3 No [place] 3 Vitamin C Vitamin C No Vitamin C Valsartan Valsartan No Valsartan Metoprolol Metoprolol No Metoprolol Succinate Succinate Succinate Chondroitin Chondroitin No Chondroiti Sulfate Sulfate n Sulfate Zinc Zinc No Zinc Diovan HCT Diovan HCT No 1{table QD Diovan HCT 160-12.5 MG 160-12.5 MG t} 160-12.5 MG Vitamin D3 Vitamin D3 No Vitamin D3 Fish Oil Fish Oil No Fish Oil Amitriptyli Amitriptyli No QD Amitriptyl ne HCl 50 ne HCl 50 ine HCl 50 MG MG MG Glucosamine Glucosamine No Glucosamin Sulfate Sulfate e Sulfate Turmeric Turmeric No Turmeric Metoprolol Metoprolol No 1{table QD Metoprolol Succinate Succinate t} Succinate ER 50 MG ER 50 MG ER 50 MG Vitamin D3 Vitamin D3 No Vitamin D3 Diovan HCT Diovan HCT No 1{table QD Diovan HCT 160-12.5 MG 160-12.5 MG t} 160-12.5 MG Vitamin C Vitamin C No Vitamin C Metoprolol Metoprolol No Metoprolol Succinate Succinate Succinate [place] 3 [place] 3 No [place] 3 Fish Oil Fish Oil No Fish Oil Amitriptyli Amitriptyli No QD Amitriptyl ne HCl 50 ne HCl 50 ine HCl 50 MG MG MG Turmeric Turmeric No Turmeric Metoprolol Metoprolol No 1{table QD Metoprolol Succinate Succinate t} Succinate ER 50 MG ER 50 MG ER 50 MG Glucosamine Glucosamine No Glucosamin Sulfate Sulfate e Sulfate Valsartan Valsartan No Valsartan Zinc Zinc No Zinc Chondroitin Chondroitin No Chondroiti Sulfate Sulfate n Sulfate Glucosamine Glucosamine No Glucosamin Sulfate Sulfate e Sulfate Metoprolol Metoprolol No 1{table QD Metoprolol Succinate Succinate t} Succinate ER 50 MG ER 50 MG ER 50 MG Turmeric Turmeric No Turmeric Valsartan Valsartan No Valsartan Metoprolol Metoprolol No Metoprolol Succinate Succinate Succinate [place] 3 [place] 3 No [place] 3 Fish Oil Fish Oil No Fish Oil Amitriptyli Amitriptyli No 1{table QD Amitriptyl ne HCl 100 ne HCl 100 t_at_be ine HCl MG MG dtime} 100 MG Vitamin D3 Vitamin D3 No Vitamin D3 Chondroitin Chondroitin No Chondroiti Sulfate Sulfate n Sulfate Zinc Zinc No Zinc Diovan HCT Diovan HCT No 1{table QD Diovan HCT 160-12.5 MG 160-12.5 MG t} 160-12.5 MG Vitamin C Vitamin C No Vitamin C Valsartan Valsartan No Valsartan Turmeric Turmeric No Turmeric Glucosamine Glucosamine No Glucosamin Sulfate Sulfate e Sulfate Fish Oil Fish Oil No Fish Oil Zinc Zinc No Zinc Vitamin D3 Vitamin D3 No Vitamin D3 Metoprolol Metoprolol No 1{table QD Metoprolol Succinate Succinate t} Succinate ER 50 MG ER 50 MG ER 50 MG Chondroitin Chondroitin No Chondroiti Sulfate Sulfate n Sulfate Vitamin C Vitamin C No Vitamin C Amitriptyli Amitriptyli No 1{table QD Amitriptyl ne HCl 100 ne HCl 100 t_at_be ine HCl MG MG dtime} 100 MG Diovan HCT Diovan HCT No 1{table QD Diovan HCT 160-12.5 MG 160-12.5 MG t} 160-12.5 MG [place] 3 [place] 3 No [place] 3 Metoprolol Metoprolol No Metoprolol Succinate Succinate Succinate [place] 3 [place] 3 No [place] 3 Metoprolol Metoprolol No Metoprolol Succinate Succinate Succinate Diovan HCT Diovan HCT No 1{table QD Diovan HCT 160-12.5 MG 160-12.5 MG t} 160-12.5 MG Metoprolol Metoprolol No 1{table QD Metoprolol Succinate Succinate t} Succinate ER 50 MG ER 50 MG ER 50 MG Vitamin D3 Vitamin D3 No Vitamin D3 Zinc Zinc No Zinc Chondroitin Chondroitin No Chondroiti Sulfate Sulfate n Sulfate Turmeric Turmeric No Turmeric Vitamin C Vitamin C No Vitamin C Fish Oil Fish Oil No Fish Oil Valsartan Valsartan No Valsartan Glucosamine Glucosamine No Glucosamin Sulfate Sulfate e Sulfate Bos[place]ia Boswellia No [place] Amitriptyli Amitriptyli No 1{table QD Amitriptyl ne HCl 100 ne HCl 100 t_at_be ine HCl MG MG dtime} 100 MG Multivitami Multivitami No 1{table QD Multivitam n - n - t} in - [place] 3 [place] 3 No [place] 3 Metoprolol Metoprolol No Metoprolol Succinate Succinate Succinate Diovan HCT Diovan HCT No 1{table QD Diovan HCT 160-12.5 MG 160-12.5 MG t} 160-12.5 MG Metoprolol Metoprolol No 1{table QD Metoprolol Succinate Succinate t} Succinate ER 50 MG ER 50 MG ER 50 MG Vitamin D3 Vitamin D3 No Vitamin D3 Zinc Zinc No Zinc Chondroitin Chondroitin No Chondroiti Sulfate Sulfate n Sulfate Turmeric Turmeric No Turmeric Vitamin C Vitamin C No Vitamin C Fish Oil Fish Oil No Fish Oil Valsartan Valsartan No Valsartan Glucosamine Glucosamine No Glucosamin Sulfate Sulfate e Sulfate [place]ia Boswellia No Bos[place]ia Amitriptyli Amitriptyli No 1{table QD Amitriptyl ne HCl 100 ne HCl 100 t_at_be ine HCl MG MG dtime} 100 MG Multivitami Multivitami No 1{table QD Multivitam n - n - t} in - Valsartan Valsartan No Valsartan Chondroitin Chondroitin No Chondroiti Sulfate Sulfate n Sulfate Vitamin C Vitamin C No Vitamin C Diovan HCT Diovan HCT No 1{table QD Diovan HCT 160-12.5 MG 160-12.5 MG t} 160-12.5 MG Vitamin D3 Vitamin D3 No Vitamin D3 Amitriptyli Amitriptyli No 1{table QD Amitriptyl ne HCl 100 ne HCl 100 t_at_be ine HCl MG MG dtime} 100 MG Fish Oil Fish Oil No Fish Oil Turmeric Turmeric No Turmeric Zinc Zinc No Zinc Glucosamine Glucosamine No Glucosamin Sulfate Sulfate e Sulfate Multivitami Multivitami No 1{table QD Multivitam n - n - t} in - Aracelyia Bulamrowellia No Boswellia Metoprolol Metoprolol No 1{table QD Metoprolol Succinate Succinate t} Succinate ER 50 MG ER 50 MG ER 50 MG [place] 3 [place] 3 No [place] 3 Metoprolol Metoprolol No Metoprolol Succinate Succinate Succinate Valsartan Valsartan No Valsartan Chondroitin Chondroitin No Chondroiti Sulfate Sulfate n Sulfate Vitamin C Vitamin C No Vitamin C Diovan HCT Diovan HCT No 1{table QD Diovan HCT 160-12.5 MG 160-12.5 MG t} 160-12.5 MG Vitamin D3 Vitamin D3 No Vitamin D3 Amitriptyli Amitriptyli No 1{table QD Amitriptyl ne HCl 100 ne HCl 100 t_at_be ine HCl MG MG dtime} 100 MG Fish Oil Fish Oil No Fish Oil Turmeric Turmeric No Turmeric Zinc Zinc No Zinc Glucosamine Glucosamine No Glucosamin Sulfate Sulfate e Sulfate Multivitami Multivitami No 1{table QD Multivitam n - n - t} in - Boswellia Boswellia No Bos[place] Metoprolol Metoprolol No 1{table QD Metoprolol Succinate Succinate t} Succinate ER 50 MG ER 50 MG ER 50 MG [place] 3 [place] 3 No [place] 3 Metoprolol Metoprolol No Metoprolol Succinate Succinate Succinate Valsartan Valsartan No Valsartan Chondroitin Chondroitin No Chondroiti Sulfate Sulfate n Sulfate Vitamin C Vitamin C No Vitamin C Diovan HCT Diovan HCT No 1{table QD Diovan HCT 160-12.5 MG 160-12.5 MG t} 160-12.5 MG Vitamin D3 Vitamin D3 No Vitamin D3 Amitriptyli Amitriptyli No 1{table QD Amitriptyl ne HCl 100 ne HCl 100 t_at_be ine HCl MG MG dtime} 100 MG Fish Oil Fish Oil No Fish Oil Turmeric Turmeric No Turmeric Zinc Zinc No Zinc Glucosamine Glucosamine No Glucosamin Sulfate Sulfate e Sulfate Multivitami Multivitami No 1{table QD Multivitam n - n - t} in - Boswellia Boswellia No [place] Metoprolol Metoprolol No 1{table QD Metoprolol Succinate Succinate t} Succinate ER 50 MG ER 50 MG ER 50 MG [place] 3 [place] 3 No [place] 3 Metoprolol Metoprolol No Metoprolol Succinate Succinate Succinate Diovan HCT Diovan HCT No 1{table QD Diovan HCT 160-12.5 MG 160-12.5 MG t} 160-12.5 MG Turmeric Turmeric No Turmeric Vitamin D3 Vitamin D3 No Vitamin D3 Chondroitin Chondroitin No Chondroiti Sulfate Sulfate n Sulfate Valsartan Valsartan No Valsartan Vitamin C Vitamin C No Vitamin C [place] Boswellia No Bos[place]ia Multivitami Multivitami No 1{table QD Multivitam n - n - t} in - Glucosamine Glucosamine No Glucosamin Sulfate Sulfate e Sulfate Amitriptyli Amitriptyli No 1{table QD Amitriptyl ne HCl 100 ne HCl 100 t_at_be ine HCl MG MG dtime} 100 MG VESIcare VESIcare No VESIcare Fish Oil Fish Oil No Fish Oil Zinc Zinc No Zinc Amoxicillin Amoxicillin No Amoxicilli n [place] 3 [place] 3 No [place] 3 Metoprolol Metoprolol No Metoprolol Succinate Succinate Succinate Metoprolol Metoprolol No 1{table QD Metoprolol Succinate Succinate t} Succinate ER 50 MG ER 50 MG ER 50 MG Diovan HCT Diovan HCT No 1{table QD Diovan HCT 160-12.5 MG 160-12.5 MG t} 160-12.5 MG Turmeric Turmeric No Turmeric Vitamin D3 Vitamin D3 No Vitamin D3 Chondroitin Chondroitin No Chondroiti Sulfate Sulfate n Sulfate Valsartan Valsartan No Valsartan Vitamin C Vitamin C No Vitamin C [place] Boswellia No Bos[place]ia Multivitami Multivitami No 1{table QD Multivitam n - n - t} in - Glucosamine Glucosamine No Glucosamin Sulfate Sulfate e Sulfate Amitriptyli Amitriptyli No 1{table QD Amitriptyl ne HCl 100 ne HCl 100 t_at_be ine HCl MG MG dtime} 100 MG VESIcare VESIcare No VESIcare Fish Oil Fish Oil No Fish Oil Zinc Zinc No Zinc Amoxicillin Amoxicillin No Amoxicilli n [place] 3 [place] 3 No [place] 3 Metoprolol Metoprolol No Metoprolol Succinate Succinate Succinate Metoprolol Metoprolol No 1{table QD Metoprolol Succinate Succinate t} Succinate ER 50 MG ER 50 MG ER 50 MG Metoprolol Metoprolol No 1{table QD Metoprolol Succinate Succinate t} Succinate ER 50 MG ER 50 MG ER 50 MG Chondroitin Chondroitin No Chondroiti Sulfate Sulfate n Sulfate Vitamin C Vitamin C No Vitamin C Turmeric Turmeric No Turmeric Zinc Zinc No Zinc Valsartan Valsartan No Valsartan Vitamin D3 Vitamin D3 No Vitamin D3 Metoprolol Metoprolol No Metoprolol Succinate Succinate Succinate Fish Oil Fish Oil No Fish Oil Amoxicillin Amoxicillin No Amoxicilli n [place] 3 [place] 3 No [place] 3 Glucosamine Glucosamine No Glucosamin Sulfate Sulfate e Sulfate Multivitami Multivitami No 1{table QD Multivitam n - n - t} in - Amitriptyli Amitriptyli No 1{table QD Amitriptyl ne HCl 100 ne HCl 100 t_at_be ine HCl MG MG dtime} 100 MG VESIcare VESIcare No VESIcare Bos[place]ia Boswellia No Boswellia Diovan HCT Diovan HCT No 1{table QD Diovan HCT 160-12.5 MG 160-12.5 MG t} 160-12.5 MG Metoprolol Metoprolol No 1{table QD Metoprolol Succinate Succinate t} Succinate ER 50 MG ER 50 MG ER 50 MG Chondroitin Chondroitin No Chondroiti Sulfate Sulfate n Sulfate Vitamin C Vitamin C No Vitamin C Turmeric Turmeric No Turmeric Diovan HCT Diovan HCT No 1{table QD Diovan HCT 160-12.5 MG 160-12.5 MG t} 160-12.5 MG Zinc Zinc No Zinc Valsartan Valsartan No Valsartan Vitamin D3 Vitamin D3 No Vitamin D3 Metoprolol Metoprolol No Metoprolol Succinate Succinate Succinate Fish Oil Fish Oil No Fish Oil Amoxicillin Amoxicillin No Amoxicilli n [place] 3 [place] 3 No [place] 3 Glucosamine Glucosamine No Glucosamin Sulfate Sulfate e Sulfate Multivitami Multivitami No 1{table QD Multivitam n - n - t} in - Amitriptyli Amitriptyli No 1{table QD Amitriptyl ne HCl 100 ne HCl 100 t_at_be ine HCl MG MG dtime} 100 MG Turmeric Turmeric No Turmeric VESIcare VESIcare No VESIcare Bos[place]ia Boswellia No Boswellia Diovan HCT Diovan HCT No 1{table QD Diovan HCT 160-12.5 MG 160-12.5 MG t} 160-12.5 MG Vitamin D3 Vitamin D3 No Vitamin D3 Chondroitin Chondroitin No Chondroiti Sulfate Sulfate n Sulfate Metoprolol Metoprolol No 1{table QD Metoprolol Succinate Succinate t} Succinate ER 50 MG ER 50 MG ER 50 MG Chondroitin Chondroitin No Chondroiti Sulfate Sulfate n Sulfate Vitamin C Vitamin C No Vitamin C Turmeric Turmeric No Turmeric Zinc Zinc No Zinc Valsartan Valsartan No Valsartan Vitamin D3 Vitamin D3 No Vitamin D3 Valsartan Valsartan No Valsartan Metoprolol Metoprolol No Metoprolol Succinate Succinate Succinate Fish Oil Fish Oil No Fish Oil Amoxicillin Amoxicillin No Amoxicilli n [place] 3 [place] 3 No [place] 3 Glucosamine Glucosamine No Glucosamin Sulfate Sulfate e Sulfate Multivitami Multivitami No 1{table QD Multivitam n - n - t} in - Amitriptyli Amitriptyli No 1{table QD Amitriptyl ne HCl 100 ne HCl 100 t_at_be ine HCl MG MG dtime} 100 MG VESIcare VESIcare No VESIcare Boswellia Boswellia No Boswellia Diovan HCT Diovan HCT No 1{table QD Diovan HCT 160-12.5 MG 160-12.5 MG t} 160-12.5 MG Vitamin C Vitamin C No Vitamin C [place]ia Boswellia No [place] Metoprolol Metoprolol No 1{table QD Metoprolol Succinate Succinate t} Succinate ER 50 MG ER 50 MG ER 50 MG Chondroitin Chondroitin No Chondroiti Sulfate Sulfate n Sulfate Multivitami Multivitami No 1{table QD Multivitam n - n - t} in - Vitamin C Vitamin C No Vitamin C Turmeric Turmeric No Turmeric Zinc Zinc No Zinc Valsartan Valsartan No Valsartan Vitamin D3 Vitamin D3 No Vitamin D3 Metoprolol Metoprolol No Metoprolol Succinate Succinate Succinate Fish Oil Fish Oil No Fish Oil Amoxicillin Amoxicillin No Amoxicilli n [place] 3 [place] 3 No [place] 3 Glucosamine Glucosamine No Glucosamin Sulfate Sulfate e Sulfate Glucosamine Glucosamine No Glucosamin Sulfate Sulfate e Sulfate Multivitami Multivitami No 1{table QD Multivitam n - n - t} in - Amitriptyli Amitriptyli No 1{table QD Amitriptyl ne HCl 100 ne HCl 100 t_at_be ine HCl MG MG dtime} 100 MG VESIcare VESIcare No VESIcare Bos[place]ia Boswellia No Boswellia Diovan HCT Diovan HCT No 1{table QD Diovan HCT 160-12.5 MG 160-12.5 MG t} 160-12.5 MG Amitriptyli Amitriptyli No 1{table QD Amitriptyl ne HCl 100 ne HCl 100 t_at_be ine HCl MG MG dtime} 100 MG VESIcare VESIcare No VESIcare Metoprolol Metoprolol No 1{table QD Metoprolol Succinate Succinate t} Succinate ER 50 MG ER 50 MG ER 50 MG Chondroitin Chondroitin No Chondroiti Sulfate Sulfate n Sulfate Vitamin C Vitamin C No Vitamin C Turmeric Turmeric No Turmeric Zinc Zinc No Zinc Valsartan Valsartan No Valsartan Vitamin D3 Vitamin D3 No Vitamin D3 Fish Oil Fish Oil No Fish Oil Metoprolol Metoprolol No Metoprolol Succinate Succinate Succinate Fish Oil Fish Oil No Fish Oil Amoxicillin Amoxicillin No Amoxicilli n [place] 3 [place] 3 No [place] 3 Glucosamine Glucosamine No Glucosamin Sulfate Sulfate e Sulfate Multivitami Multivitami No 1{table QD Multivitam n - n - t} in - Amitriptyli Amitriptyli No 1{table QD Amitriptyl ne HCl 100 ne HCl 100 t_at_be ine HCl MG MG dtime} 100 MG VESIcare VESIcare No VESIcare Bos[place]ia Boswellia No Boswellia Diovan HCT Diovan HCT No 1{table QD Diovan HCT 160-12.5 MG 160-12.5 MG t} 160-12.5 MG Zinc Zinc No Zinc Amoxicillin Amoxicillin No Amoxicilli n [place] 3 [place] 3 No [place] 3 Metoprolol Metoprolol No 1{table QD Metoprolol Succinate Succinate t} Succinate ER 50 MG ER 50 MG ER 50 MG Chondroitin Chondroitin No Chondroiti Sulfate Sulfate n Sulfate Vitamin C Vitamin C No Vitamin C Turmeric Turmeric No Turmeric Zinc Zinc No Zinc Valsartan Valsartan No Valsartan Vitamin D3 Vitamin D3 No Vitamin D3 Metoprolol Metoprolol No Metoprolol Succinate Succinate Succinate Fish Oil Fish Oil No Fish Oil Amoxicillin Amoxicillin No Amoxicilli n Metoprolol Metoprolol No Metoprolol Succinate Succinate Succinate [place] 3 [place] 3 No [place] 3 Glucosamine Glucosamine No Glucosamin Sulfate Sulfate e Sulfate Multivitami Multivitami No 1{table QD Multivitam n - n - t} in - Amitriptyli Amitriptyli No 1{table QD Amitriptyl ne HCl 100 ne HCl 100 t_at_be ine HCl MG MG dtime} 100 MG VESIcare VESIcare No VESIcare Bos[place]ia Boswellia No Bos[place]ia Diovan HCT Diovan HCT No 1{table QD Diovan HCT 160-12.5 MG 160-12.5 MG t} 160-12.5 MG Metoprolol Metoprolol No 1{table QD Metoprolol Succinate Succinate t} Succinate ER 50 MG ER 50 MG ER 50 MG Metoprolol Metoprolol No 1{table QD Metoprolol Succinate Succinate t} Succinate ER 50 MG ER 50 MG ER 50 MG Chondroitin Chondroitin No Chondroiti Sulfate Sulfate n Sulfate Vitamin C Vitamin C No Vitamin C Turmeric Turmeric No Turmeric Zinc Zinc No Zinc Valsartan Valsartan No Valsartan Vitamin D3 Vitamin D3 No Vitamin D3 Metoprolol Metoprolol No Metoprolol Succinate Succinate Succinate Fish Oil Fish Oil No Fish Oil Amoxicillin Amoxicillin No Amoxicilli n [place] 3 [place] 3 No [place] 3 Glucosamine Glucosamine No Glucosamin Sulfate Sulfate e Sulfate Multivitami Multivitami No 1{table QD Multivitam n - n - t} in - Amitriptyli Amitriptyli No 1{table QD Amitriptyl ne HCl 100 ne HCl 100 t_at_be ine HCl MG MG dtime} 100 MG VESIcare VESIcare No VESIcare [place]ia Boswellia No Bos[place]ia Diovan HCT Diovan HCT No 1{table QD Diovan HCT 160-12.5 MG 160-12.5 MG t} 160-12.5 MG Metoprolol Metoprolol No 1{table QD Metoprolol Succinate Succinate t} Succinate ER 50 MG ER 50 MG ER 50 MG Chondroitin Chondroitin No Chondroiti Sulfate Sulfate n Sulfate Vitamin C Vitamin C No Vitamin C Turmeric Turmeric No Turmeric Zinc Zinc No Zinc Valsartan Valsartan No Valsartan Vitamin D3 Vitamin D3 No Vitamin D3 Metoprolol Metoprolol No Metoprolol Succinate Succinate Succinate Fish Oil Fish Oil No Fish Oil Amoxicillin Amoxicillin No Amoxicilli n [place] 3 [place] 3 No [place] 3 Glucosamine Glucosamine No Glucosamin Sulfate Sulfate e Sulfate Multivitami Multivitami No 1{table QD Multivitam n - n - t} in - Amitriptyli Amitriptyli No 1{table QD Amitriptyl ne HCl 100 ne HCl 100 t_at_be ine HCl MG MG dtime} 100 MG VESIcare VESIcare No VESIcare Bos[place]ia Boswellia No Boswellia Diovan HCT Diovan HCT No 1{table QD Diovan HCT 160-12.5 MG 160-12.5 MG t} 160-12.5 MG Vitamin D3 Vitamin D3 No Vitamin D3 Turmeric Turmeric No Turmeric Fish Oil Fish Oil No Fish Oil Valsartan Valsartan No Valsartan Vitamin C Vitamin C No Vitamin C Zinc Zinc No Zinc Metoprolol Metoprolol No 1{table QD Metoprolol Succinate Succinate t} Succinate ER 50 MG ER 50 MG ER 50 MG [place] No [place] Chondroitin Chondroitin No Chondroiti Sulfate Sulfate n Sulfate Multivitami Multivitami No 1{table QD Multivitam n - n - t} in - Diovan HCT Diovan HCT No 1{table QD Diovan HCT 160-12.5 MG 160-12.5 MG t} 160-12.5 MG VESIcare VESIcare No VESIcare Amoxicillin Amoxicillin No Amoxicilli n Glucosamine Glucosamine No Glucosamin Sulfate Sulfate e Sulfate Amitriptyli Amitriptyli No 1{table QD Amitriptyl ne HCl 100 ne HCl 100 t_at_be ine HCl MG MG dtime} 100 MG [place]ia Boswellia No Bos[place]ia Metoprolol Metoprolol No Metoprolol Succinate Succinate Succinate Vitamin D3 Vitamin D3 No Vitamin D3 Turmeric Turmeric No Turmeric Fish Oil Fish Oil No Fish Oil Valsartan Valsartan No Valsartan Vitamin C Vitamin C No Vitamin C Zinc Zinc No Zinc Metoprolol Metoprolol No 1{table QD Metoprolol Succinate Succinate t} Succinate ER 50 MG ER 50 MG ER 50 MG [place] 3 [place] 3 No [place] 3 Chondroitin Chondroitin No Chondroiti Sulfate Sulfate n Sulfate Multivitami Multivitami No 1{table QD Multivitam n - n - t} in - Diovan HCT Diovan HCT No 1{table QD Diovan HCT 160-12.5 MG 160-12.5 MG t} 160-12.5 MG VESIcare VESIcare No VESIcare Amoxicillin Amoxicillin No Amoxicilli n Glucosamine Glucosamine No Glucosamin Sulfate Sulfate e Sulfate Amitriptyli Amitriptyli No 1{table QD Amitriptyl ne HCl 100 ne HCl 100 t_at_be ine HCl MG MG dtime} 100 MG [place]ia Boswellia No Boswellia Metoprolol Metoprolol No Metoprolol Succinate Succinate Succinate Vitamin D3 Vitamin D3 No Vitamin D3 Turmeric Turmeric No Turmeric Fish Oil Fish Oil No Fish Oil Valsartan Valsartan No Valsartan Vitamin C Vitamin C No Vitamin C Zinc Zinc No Zinc Metoprolol Metoprolol No 1{table QD Metoprolol Succinate Succinate t} Succinate ER 50 MG ER 50 MG ER 50 MG [place] 3 [place] 3 No [place] 3 Chondroitin Chondroitin No Chondroiti Sulfate Sulfate n Sulfate Multivitami Multivitami No 1{table QD Multivitam n - n - t} in - Diovan HCT Diovan HCT No 1{table QD Diovan HCT 160-12.5 MG 160-12.5 MG t} 160-12.5 MG VESIcare VESIcare No VESIcare Amoxicillin Amoxicillin No Amoxicilli n Glucosamine Glucosamine No Glucosamin Sulfate Sulfate e Sulfate Amitriptyli Amitriptyli No 1{table QD Amitriptyl ne HCl 100 ne HCl 100 t_at_be ine HCl MG MG dtime} 100 MG [place]ia Boswellia No Boswellia Metoprolol Metoprolol No Metoprolol Succinate Succinate Succinate Vitamin D3 Vitamin D3 No Vitamin D3 Turmeric Turmeric No Turmeric Fish Oil Fish Oil No Fish Oil Valsartan Valsartan No Valsartan Vitamin C Vitamin C No Vitamin C Zinc Zinc No Zinc Metoprolol Metoprolol No 1{table QD Metoprolol Succinate Succinate t} Succinate ER 50 MG ER 50 MG ER 50 MG [place] 3 [place] 3 No [place] 3 Chondroitin Chondroitin No Chondroiti Sulfate Sulfate n Sulfate Multivitami Multivitami No 1{table QD Multivitam n - n - t} in - Diovan HCT Diovan HCT No 1{table QD Diovan HCT 160-12.5 MG 160-12.5 MG t} 160-12.5 MG VESIcare VESIcare No VESIcare Amoxicillin Amoxicillin No Amoxicilli n Glucosamine Glucosamine No Glucosamin Sulfate Sulfate e Sulfate Amitriptyli Amitriptyli No 1{table QD Amitriptyl ne HCl 100 ne HCl 100 t_at_be ine HCl MG MG dtime} 100 MG [place]ia Boswellia No Bos[place]ia Metoprolol Metoprolol No Metoprolol Succinate Succinate Succinate Diovan HCT Diovan HCT No 1{table QD Diovan HCT 160-12.5 MG 160-12.5 MG t} 160-12.5 MG Vitamin D3 Vitamin D3 No Vitamin D3 Turmeric Turmeric No Turmeric Fish Oil Fish Oil No Fish Oil Valsartan Valsartan No Valsartan Vitamin C Vitamin C No Vitamin C Zinc Zinc No Zinc Metoprolol Metoprolol No 1{table QD Metoprolol Succinate Succinate t} Succinate ER 50 MG ER 50 MG ER 50 MG [place] 3 [place] 3 No [place] 3 Turmeric Turmeric No Turmeric Chondroitin Chondroitin No Chondroiti Sulfate Sulfate n Sulfate Multivitami Multivitami No 1{table QD Multivitam n - n - t} in - Diovan HCT Diovan HCT No 1{table QD Diovan HCT 160-12.5 MG 160-12.5 MG t} 160-12.5 MG VESIcare VESIcare No VESIcare Amoxicillin Amoxicillin No Amoxicilli n Glucosamine Glucosamine No Glucosamin Sulfate Sulfate e Sulfate Amitriptyli Amitriptyli No 1{table QD Amitriptyl ne HCl 100 ne HCl 100 t_at_be ine HCl MG MG dtime} 100 MG [place] Boswellia No Boswellia Metoprolol Metoprolol No Metoprolol Succinate Succinate Succinate Vitamin D3 Vitamin D3 No Vitamin D3 Chondroitin Chondroitin No Chondroiti Sulfate Sulfate n Sulfate Valsartan Valsartan No Valsartan Vitamin D3 Vitamin D3 No Vitamin D3 Turmeric Turmeric No Turmeric Fish Oil Fish Oil No Fish Oil Valsartan Valsartan No Valsartan Vitamin C Vitamin C No Vitamin C Zinc Zinc No Zinc Metoprolol Metoprolol No 1{table QD Metoprolol Succinate Succinate t} Succinate ER 50 MG ER 50 MG ER 50 MG Vitamin C Vitamin C No Vitamin C [place] 3 [place] 3 No [place] 3 Chondroitin Chondroitin No Chondroiti Sulfate Sulfate n Sulfate Multivitami Multivitami No 1{table QD Multivitam n - n - t} in - Diovan HCT Diovan HCT No 1{table QD Diovan HCT 160-12.5 MG 160-12.5 MG t} 160-12.5 MG VESIcare VESIcare No VESIcare Amoxicillin Amoxicillin No Amoxicilli n Glucosamine Glucosamine No Glucosamin Sulfate Sulfate e Sulfate Amitriptyli Amitriptyli No 1{table QD Amitriptyl ne HCl 100 ne HCl 100 t_at_be ine HCl MG MG dtime} 100 MG [place] Boswellia No [place] Metoprolol Metoprolol No Metoprolol Succinate Succinate Succinate [place]ia No [place] Multivitami Multivitami No 1{table QD Multivitam n - n - t} in - Glucosamine Glucosamine No Glucosamin Sulfate Sulfate e Sulfate Amitriptyli Amitriptyli No 1{table QD Amitriptyl ne HCl 100 ne HCl 100 t_at_be ine HCl MG MG dtime} 100 MG VESIcare VESIcare No VESIcare Fish Oil Fish Oil No Fish Oil Zinc Zinc No Zinc Amoxicillin Amoxicillin No Amoxicilli n [place] 3 [place] 3 No [place] 3 Metoprolol Metoprolol No Metoprolol Succinate Succinate Succinate Metoprolol Metoprolol No 1{table QD Metoprolol Succinate Succinate t} Succinate ER 50 MG ER 50 MG ER 50 MG Metoprolol Metoprolol No 1{table QD Metoprolol Succinate Succinate t} Succinate ER 50 MG ER 50 MG ER 50 MG Chondroitin Chondroitin No Chondroiti Sulfate Sulfate n Sulfate Vitamin C Vitamin C No Vitamin C Turmeric Turmeric No Turmeric Zinc Zinc No Zinc Valsartan Valsartan No Valsartan Vitamin D3 Vitamin D3 No Vitamin D3 Metoprolol Metoprolol No Metoprolol Succinate Succinate Succinate Fish Oil Fish Oil No Fish Oil Amoxicillin Amoxicillin No Amoxicilli n [place] 3 [place] 3 No [place] 3 Glucosamine Glucosamine No Glucosamin Sulfate Sulfate e Sulfate Multivitami Multivitami No 1{table QD Multivitam n - n - t} in - Amitriptyli Amitriptyli No 1{table QD Amitriptyl ne HCl 100 ne HCl 100 t_at_be ine HCl MG MG dtime} 100 MG VESIcare VESIcare No VESIcare [place]ia Boswellia No [place] Diovan HCT Diovan HCT No 1{table QD Diovan HCT 160-12.5 MG 160-12.5 MG t} 160-12.5 MG Vitamin D3 Vitamin D3 No Vitamin D3 Chondroitin Chondroitin No Chondroiti Sulfate Sulfate n Sulfate Turmeric Turmeric No Turmeric [place] 3 [place] 3 No [place] 3 Metoprolol Metoprolol No 1{table QD Metoprolol Succinate Succinate t} Succinate ER 50 MG ER 50 MG ER 50 MG Glucosamine Glucosamine No Glucosamin Sulfate Sulfate e Sulfate Diovan HCT Diovan HCT No 1{table QD Diovan HCT 160-12.5 MG 160-12.5 MG t} 160-12.5 MG Vitamin C Vitamin C No Vitamin C Zinc Zinc No Zinc Fish Oil Fish Oil No Fish Oil Vitamin D3 Vitamin D3 No Vitamin D3 Chondroitin Chondroitin No Chondroiti Sulfate Sulfate n Sulfate Turmeric Turmeric No Turmeric [place] 3 [place] 3 No [place] 3 Metoprolol Metoprolol No 1{table QD Metoprolol Succinate Succinate t} Succinate ER 50 MG ER 50 MG ER 50 MG Glucosamine Glucosamine No Glucosamin Sulfate Sulfate e Sulfate Diovan HCT Diovan HCT No 1{table QD Diovan HCT 160-12.5 MG 160-12.5 MG t} 160-12.5 MG Vitamin C Vitamin C No Vitamin C Zinc Zinc No Zinc Fish Oil Fish Oil No Fish Oil Vitamin D3 Vitamin D3 No Vitamin D3 Chondroitin Chondroitin No Chondroiti Sulfate Sulfate n Sulfate Turmeric Turmeric No Turmeric [place] 3 [place] 3 No [place] 3 Metoprolol Metoprolol No 1{table QD Metoprolol Succinate Succinate t} Succinate ER 50 MG ER 50 MG ER 50 MG Glucosamine Glucosamine No Glucosamin Sulfate Sulfate e Sulfate Diovan HCT Diovan HCT No 1{table QD Diovan HCT 160-12.5 MG 160-12.5 MG t} 160-12.5 MG Vitamin C Vitamin C No Vitamin C Zinc Zinc No Zinc Fish Oil Fish Oil No Fish Oil Diovan HCT Diovan HCT No 1{table QD Diovan HCT 160-12.5 MG 160-12.5 MG t} 160-12.5 MG Zinc Zinc No Zinc [place] 3 [place] 3 No [place] 3 Fish Oil Fish Oil No Fish Oil Glucosamine Glucosamine No Glucosamin Sulfate Sulfate e Sulfate Chondroitin Chondroitin No Chondroiti Sulfate Sulfate n Sulfate Turmeric Turmeric No Turmeric Vitamin D3 Vitamin D3 No Vitamin D3 Metoprolol Metoprolol No 1{table QD Metoprolol Succinate Succinate t} Succinate ER 50 MG ER 50 MG ER 50 MG Vitamin C Vitamin C No Vitamin C Metoprolol Metoprolol No Metoprolol Succinate Succinate Succinate Diovan HCT Diovan HCT No 1{table QD Diovan HCT 160-12.5 MG 160-12.5 MG t} 160-12.5 MG Zinc Zinc No Zinc [place] 3 [place] 3 No [place] 3 Fish Oil Fish Oil No Fish Oil Glucosamine Glucosamine No Glucosamin Sulfate Sulfate e Sulfate Chondroitin Chondroitin No Chondroiti Sulfate Sulfate n Sulfate Turmeric Turmeric No Turmeric Vitamin D3 Vitamin D3 No Vitamin D3 Metoprolol Metoprolol No 1{table QD Metoprolol Succinate Succinate t} Succinate ER 50 MG ER 50 MG ER 50 MG Vitamin C Vitamin C No Vitamin C Metoprolol Metoprolol No Metoprolol Succinate Succinate Succinate Diovan HCT Diovan HCT No 1{table QD Diovan HCT 160-12.5 MG 160-12.5 MG t} 160-12.5 MG Zinc Zinc No Zinc [place] 3 [place] 3 No [place] 3 Fish Oil Fish Oil No Fish Oil Glucosamine Glucosamine No Glucosamin Sulfate Sulfate e Sulfate Chondroitin Chondroitin No Chondroiti Sulfate Sulfate n Sulfate Turmeric Turmeric No Turmeric Vitamin D3 Vitamin D3 No Vitamin D3 Metoprolol Metoprolol No 1{table QD Metoprolol Succinate Succinate t} Succinate ER 50 MG ER 50 MG ER 50 MG Vitamin C Vitamin C No Vitamin C Metoprolol Metoprolol No Metoprolol Succinate Succinate Succinate Diovan HCT Diovan HCT No 1{table QD Diovan HCT 160-12.5 MG 160-12.5 MG t} 160-12.5 MG Zinc Zinc No Zinc [place] 3 [place] 3 No [place] 3 Fish Oil Fish Oil No Fish Oil Glucosamine Glucosamine No Glucosamin Sulfate Sulfate e Sulfate Chondroitin Chondroitin No [place] Sulfate Sulfate n Sulfate Turmeric Turmeric No Turmeric Vitamin D3 Vitamin D3 No Vitamin D3 Metoprolol Metoprolol No 1{table QD Metoprolol Succinate Succinate t} Succinate ER 50 MG ER 50 MG ER 50 MG Vitamin C Vitamin C No Vitamin C Metoprolol Metoprolol No Metoprolol Succinate Succinate Succinate Vitamin C Vitamin C No Vitamin C Fish Oil Fish Oil No Fish Oil Zinc Zinc No Zinc Glucosamine Glucosamine No Glucosamin Sulfate Sulfate e Sulfate Valsartan Valsartan No Valsartan Metoprolol Metoprolol No Metoprolol Succinate Succinate Succinate Turmeric Turmeric No Turmeric Vitamin D3 Vitamin D3 No Vitamin D3 [place] 3 [place] 3 No [place] 3 Metoprolol Metoprolol No 1{table QD Metoprolol Succinate Succinate t} Succinate ER 50 MG ER 50 MG ER 50 MG Diovan HCT Diovan HCT No 1{table QD Diovan HCT 160-12.5 MG 160-12.5 MG t} 160-12.5 MG Chondroitin Chondroitin No [place] Sulfate Sulfate n Sulfate Vitamin C Vitamin C No Vitamin C Fish Oil Fish Oil No Fish Oil Zinc Zinc No Zinc Glucosamine Glucosamine No Glucosamin Sulfate Sulfate e Sulfate Valsartan Valsartan No Valsartan Metoprolol Metoprolol No Metoprolol Succinate Succinate Succinate Turmeric Turmeric No Turmeric Vitamin D3 Vitamin D3 No Vitamin D3 [place] 3 [place] 3 No [place] 3 Metoprolol Metoprolol No 1{table QD Metoprolol Succinate Succinate t} Succinate ER 50 MG ER 50 MG ER 50 MG Diovan HCT Diovan HCT No 1{table QD Diovan HCT 160-12.5 MG 160-12.5 MG t} 160-12.5 MG Chondroitin Chondroitin No [place] Sulfate Sulfate n Sulfate Vitamin C Vitamin C No Vitamin C Fish Oil Fish Oil No Fish Oil Zinc Zinc No Zinc Glucosamine Glucosamine No Glucosamin Sulfate Sulfate e Sulfate Valsartan Valsartan No Valsartan Metoprolol Metoprolol No Metoprolol Succinate Succinate Succinate Turmeric Turmeric No Turmeric Vitamin D3 Vitamin D3 No Vitamin D3 [place] 3 [place] 3 No [place] 3 Metoprolol Metoprolol No 1{table QD Metoprolol Succinate Succinate t} Succinate ER 50 MG ER 50 MG ER 50 MG Diovan HCT Diovan HCT No 1{table QD Diovan HCT 160-12.5 MG 160-12.5 MG t} 160-12.5 MG Chondroitin Chondroitin No Ch[place]i Sulfate Sulfate n Sulfate Zinc Zinc No Zinc Turmeric Turmeric No Turmeric [place] 3 [place] 3 No [place] 3 Glucosamine Glucosamine No Glucosamin Sulfate Sulfate e Sulfate Metoprolol Metoprolol No Metoprolol Succinate Succinate Succinate Vitamin C Vitamin C No Vitamin C Chondroitin Chondroitin No [place] Sulfate Sulfate n Sulfate Diovan HCT Diovan HCT No 1{table QD Diovan HCT 160-12.5 MG 160-12.5 MG t} 160-12.5 MG Fish Oil Fish Oil No Fish Oil Vitamin D3 Vitamin D3 No Vitamin D3 Metoprolol Metoprolol No 1{table QD Metoprolol Succinate Succinate t} Succinate ER 50 MG ER 50 MG ER 50 MG Valsartan Valsartan No Valsartan Immunizations Ordered Immunization Filled Immunization Date Status Commen ts Source Name Name Flucelvax - Flucelvax - 2021-09-05 [facility]pleted [facility]:11:[facility] - [facility] Flucelvax - Flucelvax - 2021-09-05 Completed [facility] multidose vial 14:11:00 - [facility] Flucelvax - Flucelvax - 2021-09-05 Completed [facility] multidose vial 14:11:00 - [facility] Flucelvax - Flucelvax - 2021-09-05 Completed [facility] multidose vial 14:11:00 - [facility] Flucelvax - Flucelvax - 2021-09-05 Completed [facility] multidose vial 14:11:00 - [facility] Flucelvax - Flucelvax - 2021-09-05 Completed [facility] multidose vial 14:11:00 - [facility] Flucelvax - Flucelvax - 2021-09-05 Completed [facility] multidose vial 14:11:00 - [facility] Flucelvax - Flucelvax - 2021-09-05 Completed [facility] multidose vial 14:11:00 - [facility] Flucelvax - Flucelvax - 2021-09-05 Completed [facility] multidose vial 14:11:00 - [facility] Flucelvax - Flucelvax - 2021-09-05 Completed [facility]ial multidose vial 14:11:00 - [facility] Flucelvax - Flucelvax - 2021-09-05 Completed [facility]ose [facility]ial multidose vial 14:11:00 - [facility] Flucelvax - Flucelvax - 2021-09-05 Completed [facility]ose [facility]ial multidose vial 14:11:00 - [facility] Flucelvax - Flucelvax - 2021-09-05 Completed [facility]ial multidose vial 14:11:00 - [facility] Flucelvax - Flucelvax - 2021-09-05 Completed [facility]ose [facility]ial multidose vial 14:11:00 - [facility] Flucelvax - Flucelvax - 2021-09-05 Completed [facility]ial multidose vial 14:11:00 - [facility] Flucelvax - Flucelvax - 2021-09-05 Completed [facility] multidose vial 14:11:00 [facility] Flucelvax - Flucelvax - 2021-09-05 Completed [facility]ial multidose vial 14:11:00 [facility] Flucelvax - Flucelvax - 2021-09-05 Completed [facility]ial multidose vial 14:11:00 - [facility] Flucelvax - Flucelvax - 2021-09-05 Completed [facility]ial multidose vial 14:11:00 - [facility] Flucelvax - Flucelvax - 2021-09-05 Completed [facility]ial multidose vial 14:11:00 - [facility] Flucelvax - Flucelvax - 2021-09-05 Completed [facility]ial multidose vial 14:11:00 - [facility] Flucelvax - Flucelvax - 2021-09-05 Completed [facility]ose [facility]ial multidose vial 14:11:00 - [facility] Flucelvax - Flucelvax - 2021-09-05 Completed [facility]ose [facility]ial multidose vial 14:11:00 - [facility] Flucelvax - Flucelvax - 2021-09-05 Completed [facility]ose [facility]ial multidose vial 14:11:00 - [facility] Flucelvax - Flucelvax - 2021-09-05 Completed [facility]ial multidose vial 14:11:00 - [facility] Flucelvax - Flucelvax - 2021-09-05 Completed [facility]ose [facility]ial multidose vial 14:11:00 - [facility] Flucelvax - Flucelvax - 2021-09-05 Completed [facility]ose [facility]ial multidose vial 14:11:00 - [facility] Flucelvax - Flucelvax - 2021-09-05 Completed [facility]ial multidose vial 14:11:00 - [facility] Flucelvax - Flucelvax - 2021-09-05 Completed [facility]ial multidose vial 14:11:00 [facility] Flucelvax - Flucelvax - 2021-09-05 Completed [facility]ose [facility]ial multidose vial 14:11:00 - [facility] Flucelvax - Flucelvax - 2021-09-05 Completed [facility]ose vial multidose vial 14:11:00 - [facility] Flucelvax - Flucelvax - 2021-09-05 Completed [facility]ose [facility]ial multidose vial 14:11:00 - [facility] Flucelvax - Flucelvax - 2021-09-05 Completed [facility]ial multidose vial 14:11:00 - [facility] Flucelvax - Flucelvax - 2021-09-05 Completed [facility]ose [facility]ial multidose vial 14:11:00 - [facility] Flucelvax - Flucelvax - 2021-09-05 Completed [facility]ose [facility]ial multidose vial 14:11:00 - [facility] Flucelvax - Flucelvax - 2021-09-05 Completed [facility]ose [facility]ial multidose vial 14:11:00 - [facility] Flucelvax - Flucelvax - 2021-09-05 Completed [facility]ose vial multidose vial 14:11:00 - [facility] Flucelvax - Flucelvax - 2021-09-05 Completed [facility]ose [facility]ial multidose vial 14:11:00 [facility] Flucelvax - Flucelvax - 2021-09-05 Completed [facility] multidose vial multidose vial 14:11:00 [facility] Vital Signs Vital Name Observation Time Observation Value Comments Source WEIGHT 2022-08-07 07:15:00 110.9 kg HEIGHT 2022-08-07 07:15:00 152.4 cm WEIGHT 2022-07-21 14:21:00 108.863 kg HEIGHT 2022-07-21 14:21:00 154.9 cm WEIGHT 2022-08-07 07:15:00 110.9 kg HEIGHT 2022-08-07 07:15:00 152.4 cm WEIGHT 2022-07-21 14:21:00 108.863 kg HEIGHT 2022-07-21 14:21:00 154.9 cm WEIGHT 2022-08-07 07:15:00 110.9 kg HEIGHT 2022-08-07 07:15:00 152.4 cm WEIGHT 2022-07-21 14:21:00 108.863 kg HEIGHT 2022-07-21 14:21:00 154.9 cm height 2022-08-04 16:20:00 61 [in_i] [facility] weight 2022-08-04 16:20:00 240 [lb_av] [facility] temperature 2022-08-04 16:20:00 98 [degF] [facility] bmi 2022-08-04 16:20:00 45.34 kg/m2 [facility] blood pressure 2022-08-04 16:20:00 135 mm[Hg] [facility] - [facility] blood pressure 2022-08-04 16:20:00 75 mm[Hg] [facility] - diastolic [facility] Systolic blood 2022-06-10 19:57:00 101 mm[Hg] [facility] pressure Medicine Diastolic blood 2022-06-10 19:57:00 69 mm[Hg] [facility] pressure Medicine Heart rate 2022-06-10 19:57:00 93 /min [facility] Body temperature 2022-06-10 19:57:00 37.11 [facility] Body height 2022-06-10 19:57:00 154.9 cm [facility] Body weight 2022-06-10 19:57:00 105.235 kg [facility] BMI 2022-06-10 19:57:00 43.84 kg/m2 [facility] height 2022-06-09 13:15:00 61 [in_i] [facility] weight 2022-06-09 13:15:00 233.0 [lb_av] [facility] temperature 2022-06-09 13:15:00 97.2 [degF] [facility] bmi 2022-06-09 13:15:00 44.02 kg/m2 [facility] blood pressure 2022-06-09 13:15:00 132 mm[Hg] [facility] blood pressure 2022-06-09 13:15:00 87 mm[Hg] [facility] height 2022-06-01 14:00:00 61 [in_i] [facility] weight 2022-06-01 14:00:00 233.0 [lb_av] [facility] temperature 2022-06-01 14:00:00 97.6 [degF] [facility] bmi 2022-06-01 14:00:00 44.02 kg/m2 [facility] blood pressure 2022-06-01 14:00:00 138 mm[Hg] [facility] - systolic [facility] blood pressure 2022-06-01 14:00:00 86 mm[Hg] [facility] height 2022-05-06 13:50:00 61 [in_i] [facility] weight 2022-05-06 13:50:00 228 [lb_av] [facility] temperature 2022-05-06 13:50:00 97.6 [degF] [facility] bmi 2022-05-06 13:50:00 43.08 kg/m2 [facility] oximetry 2022-05-06 13:50:00 93 % [facility] respiratory rate 2022-05-06 13:50:00 18 /min [facility] blood pressure 2022-05-06 13:50:00 117 mm[Hg] [facility] blood pressure 2022-05-06 13:50:00 75 mm[Hg] [facility] - diastolic [facility] height 2022-04-27 16:20:00 61 [in_i] [facility] weight 2022-04-27 16:20:00 224.8 [lb_av] [facility] temperature 2022-04-27 16:20:00 97.7 [degF] [facility] bmi 2022-04-27 16:20:00 42.47 kg/m2 [facility] oximetry 2022-04-27 16:20:00 95 % [facility] respiratory rate 2022-04-27 16:20:00 18 /min [facility] blood pressure 2022-04-27 16:20:00 115 mm[Hg] [facility] blood pressure 2022-04-27 16:20:00 73 mm[Hg] [facility] - diastolic [facility] height 2022-04-14 13:30:00 61 [in_i] [facility] weight 2022-04-14 13:30:00 236 [lb_av] [facility] temperature 2022-04-14 13:30:00 97.4 [degF] [facility] bmi 2022-04-14 13:30:00 44.59 kg/m2 [facility] blood pressure 2022-04-14 13:30:00 126 mm[Hg] [facility] - systolic [facility] blood pressure 2022-04-14 13:30:00 72 mm[Hg] [facility] height 2022-03-13 07:40:00 61 [in_i] [facility] weight 2022-03-13 07:40:00 230 [lb_av] [facility] temperature 2022-03-13 07:40:00 97 [degF] [facility] bmi 2022-03-13 07:40:00 43.45 kg/m2 [facility] blood pressure 2022-03-13 07:40:00 132 mm[Hg] [facility] blood pressure 2022-03-13 07:40:00 72 mm[Hg] [facility] height 2022-02-17 11:10:00 61 [in_i] [facility] weight 2022-02-17 11:10:00 234 [lb_av] [facility] temperature 2022-02-17 11:10:00 98 [degF] [facility] bmi 2022-02-17 11:10:00 44.21 kg/m2 [facility] blood pressure 2022-02-17 11:10:00 134 mm[Hg] [facility] blood pressure 2022-02-17 11:10:00 65 mm[Hg] [facility] height 2022-02-09 15:30:00 61 [in_i] [facility] weight 2022-02-09 15:30:00 241 [lb_av] [facility] temperature 2022-02-09 15:30:00 97.3 [degF] [facility] bmi 2022-02-09 15:30:00 45.53 kg/m2 [facility] blood pressure 2022-02-09 15:30:00 138 mm[Hg] [facility] blood pressure 2022-02-09 15:30:00 84 mm[Hg] [facility] height 2022-01-20 13:50:00 61 [in_i] [facility] weight 2022-01-20 13:50:00 241.4 [lb_av] [facility] temperature 2022-01-20 13:50:00 97.5 [degF] [facility] bmi 2022-01-20 13:50:00 45.61 kg/m2 [facility] oximetry 2022-01-20 13:50:00 95 % [facility] respiratory rate 2022-01-20 13:50:00 18 /min [facility] blood pressure 2022-01-20 13:50:00 115 mm[Hg] [facility] - systolic [facility] blood pressure 2022-01-20 13:50:00 59 mm[Hg] [facility] height 2022-01-20 14:00:00 61 [in_i] [facility] weight 2022-01-20 14:00:00 241.4 [lb_av] [facility] temperature 2022-01-20 14:00:00 97.5 [degF] [facility] bmi 2022-01-20 14:00:00 45.61 kg/m2 [facility] oximetry 2022-01-20 14:00:00 95 % [facility] respiratory rate 2022-01-20 14:00:00 18 /min [facility] blood pressure 2022-01-20 14:00:00 115 mm[Hg] [facility] - systolic [facility] blood pressure 2022-01-20 14:00:00 59 mm[Hg] [facility] - diastolic [facility] height 2022-01-06 14:00:00 61 [in_i] [facility] weight 2022-01-06 14:00:00 235 [lb_av] [facility] temperature 2022-01-06 14:00:00 97.4 [degF] [facility] bmi 2022-01-06 14:00:00 44.4 kg/m2 [facility] blood pressure 2022-01-06 14:00:00 124 mm[Hg] [facility] - systolic [facility] blood pressure 2022-01-06 14:00:00 84 mm[Hg] [facility] height 2021-11-12 13:30:00 61 [in_i] [facility] weight 2021-11-12 13:30:00 231.0 [lb_av] [facility] temperature 2021-11-12 13:30:00 98.6 [degF] [facility] bmi 2021-11-12 13:30:00 43.64 kg/m2 [facility] oximetry 2021-11-12 13:30:00 96 % [facility] respiratory rate 2021-11-12 13:30:00 16 /min [facility] blood pressure 2021-11-12 13:30:00 134 mm[Hg] [facility] - systolic [facility] blood pressure 2021-11-12 13:30:00 78 mm[Hg] [facility] - diastolic [facility] Heart rate 2022-08-08 07:37:04 75 /min [facility] Body temperature 2022-08-08 07:37:04 35.67 [facility] Respiratory rate 2022-08-08 07:37:04 18 /min [facility] Oxygen saturation in 2022-08-08 07:37:04 95 /min [facility] Arterial blood by [facility] Pulse oximetry Systolic blood 2022-08-08 07:36:00 100 mm[Hg] [facility] Diastolic blood 2022-08-08 07:36:00 55 mm[Hg] [facility] Systolic blood 2022-08-07 07:15:00 135 mm[Hg] [facility] Diastolic blood 2022-08-07 07:15:00 63 mm[Hg] [facility] Heart rate 2022-08-07 07:15:00 93 /min [facility] Body temperature 2022-08-07 07:15:00 36.89 [facility] Respiratory rate 2022-08-07 07:15:00 19 /min [facility] Oxygen saturation in 2022-08-07 07:15:00 95 /min [facility] Arterial blood by [facility] Pulse oximetry Body height 2022-08-07 07:15:00 152.4 cm [facility] Body weight 2022-08-07 07:15:00 110.9 kg [facility] BMI 2022-08-07 07:15:00 47.75 kg/m2 [facility] Body height 2022-07-21 14:21:00 154.9 cm [facility] Body weight 2022-07-21 14:21:00 108.863 kg [facility] BMI 2022-07-21 14:21:00 45.35 kg/m2 [facility] Systolic blood 2022-06-12 20:00:00 119 mm[Hg] [facility] pressure Diastolic blood 2022-06-12 20:00:00 70 mm[Hg] [facility] pressure Heart rate 2022-06-12 20:00:00 78 /min [facility] Respiratory rate 2022-06-12 20:00:00 18 /min [facility] Oxygen saturation in 2022-06-12 20:00:00 91 /min [facility] Arterial blood by Pulse oximetry Body temperature 2022-06-12 16:03:00 36.61 Yasmeen [facility] Body height 2022-06-12 16:02:00 154.9 cm [facility] Body weight 2022-06-12 16:02:00 105.235 kg [facility] BMI 2022-06-12 16:02:00 43.84 kg/m2 [facility] Procedures Procedure Date / Time Performed Performing Clinician [facility] e EXCISION, MASS, 2022-08-07 10:00:[address] [facility] PAROTID [place] EXCISION, MASS, 2022-08-07 09:10:[address] [facility] PAROTID [place] EXCISION, MASS, 2022-08-07 08:30:00 Shen Arellano [facility] US FNA W IMAGING 2022-06-12 19:31:27 Juventino Rubio [facility] CYTOLOGY 2022-06-12 18:40:00 Juventino Rubio [facility] (NON-GYNECOLOGICAL) REQUEST CT SOFT TISSUE NECK W 2022-05-28 19:38:00 Juventino Rubio [facility] CONTRAST Plan of Care Planned Activity Planned Date Details Comments Source Future Scheduled 2022-07-15 HEPATITIS B VACCINES (1 [facility] 16:29:42 of 3 - 3-dose series) Hospit al [code = HEPATITIS B VACCINES (1 of 3 - 3-dose series)] Future Scheduled 2022-07-15 COVID-19 VACCINE (#1) [facility] 16:29:42 [code = COVID-19 VACCINE Hos pital (#1)] Future Scheduled 2022-07-15 Hepatitis C screening [facility] 16:29:42 (procedure) [code = Hospital [id number]] Future Scheduled 2022-07-15 BREAST CANCER SCREENING [facility] 16:29:42 [code = BREAST CANCER Hospit al SCREENING] Future Scheduled 2022-07-15 COLONOSCOPY SCREENING [facility] 16:29:42 [code = COLONOSCOPY Hospital SCREENING] Future Scheduled 2022-07-15 SHINGLES VACCINES (1 of [facility] 16:29:42 2) [code = SHINGLES Hospital VACCINES (1 of 2)] Future Scheduled 2022-07-15 Screening for malignant [facility] 16:29:42 neoplasm of cervix Hospital (procedure) [code = 155720946] Future Scheduled 2022-07-15 INFLUENZA VACCINE [code = [facility] 16:29:42 INFLUENZA VACCINE] Hospital Future Scheduled 2022-06-24 HEPATITIS B VACCINES (1 [facility] 13:46:42 of 3 - 3-dose series) Hospit al [code = HEPATITIS B VACCINES (1 of 3 - 3-dose series)] Future Scheduled 2022-06-24 COVID-19 VACCINE (#1) [facility] 13:46:42 [code = COVID-19 VACCINE Hos pital (#1)] Future Scheduled 2022-06-24 Hepatitis C screening [facility] 13:46:42 (procedure) [code = Hospital 849402637] Future Scheduled 2022-06-24 BREAST CANCER SCREENING [facility] 13:46:42 [code = BREAST CANCER Hospit al SCREENING] Future Scheduled 2022-06-24 COLONOSCOPY SCREENING [facility] 13:46:42 [code = COLONOSCOPY Hospital SCREENING] Future Scheduled 2022-06-24 SHINGLES VACCINES (1 of [facility] 13:46:42 2) [code = SHINGLES Hospital VACCINES (1 of 2)] Future Scheduled 2022-06-24 Screening for malignant [facility] 13:46:42 neoplasm of cervix Hospital (procedure) [code = 946440773] Future Scheduled 2022-06-24 INFLUENZA VACCINE [code = [facility] 13:46:42 INFLUENZA VACCINE] Hospital Future Scheduled 2022-06-13 Screening for malignant [facility] of Test 14:56:59 neoplasm of colon Medicine (procedure) [code = 520505306] Future Scheduled 2022-06-13 Screening for malignant [facility] of Test 14:56:59 neoplasm of breast Medicine (procedure) [code = 289679461] Future Scheduled 2022-06-13 COVID-19 Vaccine (#1) [facility] of Test 14:56:59 [code = COVID-19 Vaccine Med icine (#1)] Future Scheduled 2022-06-13 Pneumococcal Combined (1 [facility] Test 14:56:59 - PCV) [code = Medicine Pneumococcal Combined (1 - PCV)] Future Scheduled 2022-06-13 TETANUS SHOT (ADULT) [facility] of Test 14:56:59 [code = TETANUS SHOT Medicin e (ADULT)] Future Scheduled 2022-06-13 BMI FOLLOW UP PLAN [code [facility] of Test 14:56:59 = BMI FOLLOW UP PLAN] Medici ne Future Scheduled 2022-06-13 Hepatitis C screening [facility] of Test 14:56:59 (procedure) [code = Medicine [id number]] Future Scheduled 2022-06-13 Human immunodeficiency B [facility] of Test 14:56:59 virus screening Medicine (procedure) [code = 637681989] Future Scheduled 2022-06-13 Screening for malignant [facility] of Test 14:56:59 neoplasm of cervix Medicine (procedure) [code = 935558000] Future Scheduled 2022-06-13 Screening for malignant [facility] of Test 14:56:59 neoplasm of lung Medicine (procedure) [code = 505063074] Future Scheduled 2022-06-13 ZOSTER VACCINE (1 of 2) [facility] of Test 14:56:59 [code = ZOSTER VACCINE (1 Me dicine of 2)] Future Scheduled 2022-06-13 FLU VACCINE > 6 MONTHS B [facility] of Test 14:56:59 [code = FLU VACCINE > 6 Medi cine MONTHS] Future Scheduled 2022-05-07 INFLUENZA VACCINE (#1[facility] [code = INFLUENZA VACCINE Me dical Center (#1)] Future Scheduled 2022-05-07 INFLUENZA VACCINE (#1[facility] 00:00:00 [code = INFLUENZA VACCINE Me dical Center (#1)] Future Scheduled 2022-05-07 INFLUENZA VACCINE (#1) [facility] 00:00:00 [code = INFLUENZA VACCINE Me dical Center (#1)] Future Scheduled 2022-05-07 INFLUENZA VACCINE (#1) [facility] 00:00:00 [code = INFLUENZA VACCINE Me dical Center (#1)] Future Scheduled 2022-04-06 Medicare IPPE (WELCOME TO [facility] 00:00:00 MEDICARE) [code = Medical Ce nter Medicare IPPE (WELCOME TO MEDICARE)] Future Scheduled 2021-09-[address] [facility] 00:00:00 (12+) [code = DEPRESSION Med ical Center SCREENING (12+)] Future Scheduled 2021-09-[address] [facility] Test 00:00:00 (12+) [code = DEPRESSION Med ical Center SCREENING (12+)] Future Scheduled 2021-09-[address] [facility] 00:00:00 (12+) [code = DEPRESSION Med ical Center SCREENING (12+)] Future Scheduled 2021-09-[address] [facility] 00:00:00 (12+) [code = DEPRESSION Med ical Center SCREENING (12+)] Future Scheduled 2012 SHINGLES VACCINES ([address] [facility] 00:00:00 2) [code = SHINGLES Medical Center VACCINES (1 of 2)] Future Scheduled 2012 SHINGLES VACCINES ([address] [facility] 00:00:00 2) [code = SHINGLES Medical Center VACCINES (1 of 2)] Future Scheduled 2012 SHINGLES VACCINES ([address] [facility] 00:00:00 2) [code = SHINGLES [facility] VACCINES (1 of 2)] Future Scheduled 2012 SHINGLES VACCINES ([address] [facility] Test 00:00:00 2) [code = SHINES [facility] VACCINES (1 of 2)] Future Scheduled 2007 Lipid panel (procedure) [facility] 00:00:00 [code = 55849811] Medical Ce nter Future Scheduled 2007 Lipid panel (procedure) [facility] Test 00:00:00 [code = 93638525] Medical Ce nter Future Scheduled 2007 Lipid panel (procedure) [facility] Test 00:00:00 [code = 05600106] Medical Ce nter Future Scheduled 2007 Lipid panel (procedure) [facility] Test 00:00:00 [code = 52139907] Medical Ce nter Future Scheduled 1983 Screening for malignant [facility] Test 00:00:00 neoplasm of cervix Medical C enter (procedure) [code = 772037304] Future Scheduled 1983 Screening for malignant [facility] Test 00:00:00 neoplasm of cervix Medical C enter (procedure) [code = 066472081] Future Scheduled 1983 Screening for malignant [facility] Test 00:00:00 neoplasm of cervix Medical C enter (procedure) [code = 318624930] Future Scheduled 1983 Screening for malignant [facility] Test 00:00:00 neoplasm of cervix Medical C enter (procedure) [code = 209980309] Future Scheduled 1981 DTAP/TDAP/TD VACCINES ([address] [facility] Test 00:00:00 - Tdap) [code = Medical Cent er DTAP/TDAP/TD VACCINES (1 - Tdap)] Future Scheduled 1981 DTAP/TDAP/TD VACCINES ([address] [facility] Test 00:00:00 - Tdap) [code = Medical Cent er DTAP/TDAP/TD VACCINES (1 - Tdap)] Future Scheduled 1981 DTAP/TDAP/TD VACCINES ([address] [facility] 00:00:00 - Tdap) [code = Medical Cent er DTAP/TDAP/TD VACCINES (1 - Tdap)] Future Scheduled 1981 DTAP/TDAP/TD VACCINES ([address] [facility] 00:00:00 - Tdap) [code = Medical Cent er DTAP/TDAP/TD VACCINES (1 - Tdap)] Future Scheduled 1980 HE[facility]ITIS C [facility] 00:[facility]00 [code = HEPATITIS C Medical Center SCREENING] Future Scheduled 1980 HEPATITIS C [facility] 00:00:00 [code = HEPATITIS C Medical Center SCREENING] Future Scheduled 1980 HEPATITIS C [facility] 00:00:00 [code = HEPATITIS C Medical Center SCREENING] Future Scheduled 1980 HEPATITIS C [facility] 00:00[facility] [code = HEPATITIS C Medical Center SCREENING] Future Scheduled [address] [facility] Test 00:00:00 Counseling and Screening Med ical Center (12+) [code = Tobacco Cessation Counseling and Screening (12+)] Future Scheduled [address] [facility] Test 00:00:00 Counseling and Screening Med ical Center (12+) [code = Tobacco Cessation Counseling and Screening (12+)] Future Scheduled [address] [facility] Test 00:00:00 Counseling and Screening Med ical Center (12+) [code = Tobacco Cessation Counseling and Screening (12+)] Future Scheduled [address] [facility] Test 00:00:00 Counseling and Screening Med ical Center (12+) [code = Tobacco Cessation Counseling and Screening (12+)] Future Scheduled 1968 PNEUMOCOCCAL VACCINE 0-[address] [facility] 00:00:00 YRS (1 - PCV) [code = Medica l Center PNEUMOCOCCAL VACCINE 0-64 YRS (1 - PCV)] Future Scheduled 1968 PNEUMOCOCCAL VACCINE 0-[address] [facility] Test 00:00:00 YRS (1 - PCV) [code = Medica l Center PNEUMOCOCCAL VACCINE 0-64 YRS (1 - PCV)] Future Scheduled 1968 PNEUMOCOCCAL VACCINE 0-[address] [facility] 00:00:00 YRS (1 - PCV) [code = Medica l Center PNEUMOCOCCAL VACCINE 0-64 YRS (1 - PCV)] Future Scheduled 1968 PNEUMOCOCCAL VACCINE 0-[address] [facility] Test 00:00:00 YRS (1 - PCV) [code = Medica l Center PNEUMOCOCCAL VACCINE 0-64 YRS (1 - PCV)] Future Scheduled 1963-03-16 COVID-19 VACCINE (#1[facility] 00:[facility]00 [code = COVID-19 VACCINE Med ical Center (#1)] Future Scheduled 1963-03-16 COVID-19 VACCINE (#1[facility] 00:00:00 [code = COVID-19 VACCINE Med ical Center (#1)] Future Scheduled 1963-03-16 COVID-19 VACCINE (#1[facility] 00:00:00 [code = COVID-19 VACCINE Med ical Center (#1)] Future Scheduled 1963-03-16 COVID-19 VACCINE (#1[facility] 00:00:00 [code = COVID-19 VACCINE Med ical Center (#1)] Future Scheduled 1962 Screening for malignant [facility] 00:00:00 neoplasm of breast Medical C enter (procedure) [code = 705012287] Future Scheduled 1962 [address] Colonography (combo) [facility] 00:00:00 [code = CT Colonography [facility] (combo)] Future Scheduled 1962 Screening for malignant [facility] 00:00:00 neoplasm of colon Medical Ce nter (procedure) [code = 734432262] Future Scheduled 1962 Screening for malignant [facility] Test 00:00:00 neoplasm of colon Medical Ce nter (procedure) [code = 658751666] Future Scheduled 1962 Screening for malignant [facility] Test 00:00:00 neoplasm of colon Medical Ce nter (procedure) [code = 888465778] Future Scheduled 1962 Screening for malignant [facility] 00:00:00 neoplasm of colon Medical Ce nter (procedure) [code = 417107828] Future Scheduled 1962 Sigmoidoscopy [code = [facility] S[facility]oscopy] Medical Cente r Future Scheduled 1962 Screening for malignant [facility] Test 00:00:00 neoplasm of breast Medical C enter (procedure) [code = 836729586] Future Scheduled 1962 CT Colonography (combo) [facility] 00:00:00 [code = CT Colonography [facility] (combo)] Future Scheduled 1962 Screening for malignant [facility] 00:00:00 neoplasm of colon Medical Ce nter (procedure) [code = 342064989] Future Scheduled 1962 Screening for malignant [facility] 00:00:00 neoplasm of colon Medical Ce nter (procedure) [code = 640403616] Future Scheduled 1962 Screening for malignant [facility] 00:00:00 neoplasm of colon Medical Ce nter (procedure) [code = 449280831] Future Scheduled 1962 Screening for malignant [facility] 00:00:00 neoplasm of colon Medical Ce nter (procedure) [code = 252465106] Future Scheduled 1962 Sigmoidoscopy [code = [facility] S[facility]oidoscopy] Medical Cente r Future Scheduled 1962 Screening for malignant [facility] 00:00:00 neoplasm of breast Medical C enter (procedure) [code = 046249401] Future Scheduled 1962 CT Colonography (combo) [facility] 00:00:00 [code = CT Colonography [facility] (combo)] Future Scheduled 1962 Screening for malignant [facility] 00:00:00 neoplasm of colon Medical Ce nter (procedure) [code = 063899157] Future Scheduled 1962 Screening for malignant [facility] 00:00:00 neoplasm of colon Medical Ce nter (procedure) [code = 027678434] Future Scheduled 1962 Screening for malignant [facility] 00:00:00 neoplasm of colon Medical Ce nter (procedure) [code = 565829318] Future Scheduled 1962 Screening for malignant [facility] 00:00:00 neoplasm of colon Medical Ce nter (procedure) [code = 451046334] Future Scheduled 1962 Sigmoidoscopy [code = [facility]oscopy] Medical Cente r Future Scheduled 1962 Screening for malignant [facility] 00:00:00 neoplasm of breast Medical C enter (procedure) [code = 975904112] Future Scheduled 1962 CT Colonography (combo) [facility] 00:00:00 [code = CT Colonography [facility] (combo)] Future Scheduled 1962 Screening for malignant [facility] 00:00:00 neoplasm of colon Medical Ce nter (procedure) [code = 137558280] Future Scheduled 1962 Screening for malignant [facility] 00:00:00 neoplasm of colon Medical Ce nter (procedure) [code = 258854070] Future Scheduled 1962 Screening for malignant [facility] 00:00:00 neoplasm of colon Medical Ce nter (procedure) [code = 095831579] Future Scheduled 1962 Screening for malignant [facility] 00:00:00 neoplasm of colon Medical Ce nter (procedure) [code = 953998358] Future Scheduled 1962 Sigmoidoscopy [code = [facility] 00:[facility] Sigm[facility]oscopy] Medical Cente r Encounters Start End Encounter Admission Attending Care Care Encounter Source Date/Time Date/Time Type Type Clinicians Facility Department ID 2022-08-06 Outpatient SYSTEM, ALBINO POSADA [id number] 14:30:47 PROVIDER Deshaun o hortensia 2022-08-03 [facility] [id number] Common 16:09:00 [facility] 2022-07-01 Outpatient SYSTEM, [facility] ALBINO [id number] 15:40:17 PROVIDER Deshaun o hortensia 2022-05-12 Outpatient Fernandez, [facility] [id number] Common 09:54:03 Thor [facility] 2022-05-06 Out[facility] Fern[facility] [id number] Common 14:30:00 Thor [facility] 2022-04-13 Out[facility], [facility] [id number] Common 16:09:02 Thor [facility] 2022-02-16 Outpatient Fern[facility], [facility] [id number] Common 14:51:03 Thor [facility] 2022-02-10 Outpatient Fernandez, [facility] [id number] Common 14:17:01 Thor [facility] 2022-01-22 Outpatient Fernandez, [facility] [id number] Common 12:32:01 Thor [facility] 2022-01-20 Outpatient Fernandez, [facility] [id number] Common 13:44:15 Thor [facility] 2022-01-08 Outpatient Fernandez, [facility] [id number] Common 15:42:03 Thor [facility] 2022-01-06 Outpatient Fernandez, [facility] [id number] Common 14:20:04 Thor [facility] 2021-12-29 Outpatient Fernandez, [facility] [id number] Common 15:30:03 Thor [facility] 2021-11-12 Outpatient Fernandez, [facility] [id number] Common 14:05:01 Thor [facility] 2022-08-07 2022-08-08 Hospital [facility] [id number] 06:48:00 10:48:[address] [facility] 2022-08-07 2022-08-08 Outpatient ADAN [facility] Surgery [id number] [facility] 06:48:00 10:48:00 SHEN 2022-08-07 2022-08-07 Outpatient [facility] [id number] [facility] 06:48:00 23:59:00 Alonzo 2022-08-07 2022-08-[address] [facility] [id number] [facility] 09:10:00 13:07:[address] [facility] 2022-08-07 2022-08-07 Surgery Adan [facility] [id number] 08:30:00 11:40:00 [facility] 2022-08-07 2022-08-07 Surgery Adan [facility] [id number] 08:30:00 11:40:00 [facility] 2022-08-07 2022-08-07 Anesthesia Sacha [facility] [id number] 08:30:00 08:30:[address] [facility] 2022-08-07 2022-08-07 Hospital Adan [facility] [id number] 06:48:00 06:48:[address] [facility] 2022-08-07 2022-08-[address] [facility] [id number] [facility] 00:[facility]00 00:[facility]:00 [facility] 2022-08-07 2022-08-[address] [facility] [id number] [facility] 00:[facility]:00 [facility] 2022-08-05 2022-08-05 (WEB) STLMLC [facility] [id number] Co mmon 00:00:00 00:00:00 [facility] 2022-08-05 2022-08-05 (WEB) [facility]LMLC [facility] [id number] Co mmon 00:00:00 00:00:00 [facility] 2022-08-04 2022-08-04 (WEB) [facility] [id number] Co mmon 00:00:00 00:00:00 [facility] 2022-08-04 2022-08-04 (WEB) [facility]C [facility] [id number] Co mmon 00:00:00 00:00:00 [facility] 2022-08-04 2022-08-04 OFFICE [facility]C ST[facility] [id number] Co mmon 00:00:00 00:00:00 VISIT [facility] LEVEL 4 [facility] 2022-08-03 2022-08-03 (WEB) STLMLC [facility] [id number] Co mmon 00:00:00 00:00:00 [facility] 2022-07-28 2022-07-28 (TEL) [facility]C [facility] [id number] Co mmon 00:00:00 00:00:00 [facility] 2022-07-23 2022-07-23 (WEB) [facility] [id number] Co mmon 00:00:00 00:00:00 [facility] 2022-07-23 2022-07-23 (WEB) [facility]LMLC ST[facility] [id number] Co mmon 00:00:00 00:00:00 [facility] 2022-07-23 2022-07-23 (TEL) STLMLC ST[facility] [id number] Co mmon 00:00:00 00:00:00 [facility] 2022-07-22 2022-07-22 (TEL) STLMLC ST[facility] [id number] Co mmon 00:00:00 00:00:00 [facility] 2022-07-21 2022-07-21 Outpatient [facility] SLE [id number] SLE 00:00:00 00:00:00 SHEN 2022-07-13 2022-07-13 (TEL) STLMLC STL[facility] [id number] Co mmon 00:00:00 00:00:00 [facility] 2022-07-09 2022-07-09 (TEL) STLMLC ST[facility] [id number] Co mmon 00:00:00 00:00:00 [facility] 2022-06-30 2022-06-30 Telephone Ramón 1.2.840.1 [id number] Univers 00:00:00 00:00:00 Celaysheia 48646.1.1 i ty of S 3.412.2.7 [facility]3.419358 MD Figueroa8 [facility] 2022-06-30 2022-06-30 Telephone Ramón, 1.2.840.1 [id number] Univers 00:00:00 00:00:00 Celaysheia 39283.1.1 i ty of S 3.412.2.7 [place] .3.720323 .8 [facility] 2022-06-12 2022-06-12 [facility], 1.2.840.1 [id number] Methodi 10:25:37 23:59:00 Encounter Juventino P. 14380.1.[address] 3.430.2.7 Hospit a .3.201729 l .8 2022-06-12 2022-06-12 [facility] [place], 1.2.840.1 [id number] Methodi 14:15:00 14:20:[address] 3.430.2.7 Hospit a .3.810032 l .8 2022-06-12 2022-06-12 [facility], 1.2.840.1 [id number] Methodi 14:15:00 14:20:[address] 3.430.2.7 Hospit a .3.802491 l .8 2022-06-12 2022-06-12 [facility], 1.2.840.1 [id number] [place] 00:00:00 00:00:00 Encounter JUVENTINO 02777.1.1 [address] .3.694217 .8 2022-06-11 2022-06-11 Travel 1.2.840.1 1.2.100.649 [id number] Methodi 00:00:00 00:00:[address] 3.430.2.7 0.2.7.3.698 Ho spita .3.368987 084.8 l .8 2022-06-11 2022-06-11 Travel 1.2.840.1 1.2.594.355 6093 [id number] Methodi 00:00:00 00:00:[address] 3.430.2.7 0.2.7.3.698 Ho spita .3.829246 084.8 l .8 2022-06-10 2022-06-10 Office LYNDA ARELLANO 1.2.840.114 [id number] [facility] 14:24:39 15:28:34 Visit SHEN AMBULATOR 350.1.13.21 College Y 0.2.7.2.686 of [id number] Medi antonio 800 e 2022-06-10 2022-06-10 Telephone [facility]irl[facility], 1.2.840.1 [id number] Methodi 00:00:00 00:00:[address] 3.430.2.7 Hospit a .3.058641 l .8 2022-06-10 2022-06-10 Telephone [facility], 1.2.840.1 [id number] [id number] Methodi 00:00:00 00:00:[address] 3.430.2.7 Hospit a .3.717080 l .8 2022-06-09 2022-06-09 (IN/ASP) STLMLC STLMLC [id number] C ommon 00:00:00 00:00:00 INJ ASP [facility] 2022-06-08 2022-06-08 Orders Vinita, 1.2.840.1 [id number] Methodi 00:00:00 00:00:00 Only Juventino P. 18734.1.[address] 3.430.2.7 Hospit a .3.722738 l .8 2022-06-08 2022-06-08 Orders [place]a, 1.2.840.1 [id number] Methodi 00:00:00 00:00:00 Only Juventino P. 11856.1.[address] 3.430.2.7 Hospit a .3.603439 l .8 2022-06-03 2022-06-03 Telephone [facility], 1.2.840.1 [id number] [id number] Methodi 00:00:00 00:00:[address] 3.430.2.7 Hospit a .3.475530 l .8 2022-06-03 2022-06-03 Telephone Bennett, 1.2.840.1 [id number] Methodi 00:00:00 00:00:[address] 3.430.2.7 Hospit a .3.184347 l .8 2022-06-01 2022-06-01 (IN/ASP) STLMLC STLMLC [id number] C ommon 00:00:00 00:00:00 INJ ASP [facility] 2022-05-28 2022-05-28 Outpatient RUBIO, [facility] [id number] [place] 00:00:00 00:00:00 JUVENTINO Albert [facility] 2022-05-20 2022-05-20 (TEL) STLMLC STLMLC [id number] Co mmon 00:00:00 00:00:00 [facility] 2022-05-06 2022-05-06 OFFICE STLMLC STLMLC [id number] Co mmon 00:00:00 00:00:00 VISIT [facility] ESTAB PT - CHI LEVEL 4 [facility] 2022-04-28 2022-04-28 (TEL) STLMLC STLMLC [id number] Co mmon 00:00:00 00:00:00 [facility] 2022-04-27 2022-04-27 OFFICE STLMLC STLMLC [id number] Co mmon 00:00:00 00:00:00 VISIT EST Spir it PT LEVEL 3 - CHI [facility] 2022-04-23 2022-04-23 (TEL) STLMLC STLMLC [id number] Co mmon 00:00:00 00:00:00 [facility] 2022-04-21 2022-04-21 (TEL) STLMLC STLMLC [id number] Co mmon 00:00:00 00:00:00 [facility] 2022-04-14 2022-04-14 OFFICE STLMLC STLMLC [id number] Co mmon 00:00:00 00:00:00 VISIT [facility] PT - CHI LEVEL 4 [facility] 2022-03-13 2022-03-13 OFFICE STLMLC STLMLC [id number] Co mmon 00:00:00 00:00:00 VISIT [facility] ESTAB PT - CHI LEVEL 4 [facility] 2022-03-05 2022-03-05 (TEL) STLMLC STLMLC [id number] Co mmon 00:00:00 00:00:00 [facility] 2022-02-17 2022-02-17 OL DIG E/M STLMLC STLMLC [id number] Common 00:00:00 00:00:00 SVC 21+ [facility] MIN - CHI [facility] 2022-02-09 2022-02-09 OFFICE STLMLC STLMLC [id number] Co mmon 00:00:00 00:00:00 [facility] - CHI LEVEL 4 [facility] 2022-01-20 2022-01-20 OFFICE STLMLC STLMLC [id number] Co mmon 00:00:00 00:00:00 VISIT [facility] ESTAB PT - CHI LEVEL 4 [facility] 2022-01-20 2022-01-20 SUB ANNUAL STLMLC STLMLC [id number] Common 00:00:00 00:00:00 MCR [facility] - [facility] VISIT [facility] 2022-01-20 2022-01-20 (TEL) STLMLC STLMLC [id number] Co mmon 00:00:00 00:00:00 [facility] 2022-01-16 2022-01-16 (TEL) STLMLC STLMLC [id number] Co mmon 00:00:00 00:00:00 [facility] 2022-01-14 2022-01-14 (TEL) STLMLC STLMLC [id number] Co mmon 00:00:00 00:00:00 [facility] 2022-01-07 2022-01-07 (TEL) STLMLC STLMLC [id number] Co mmon 00:00:00 00:00:00 [facility] 2022-01-06 2022-01-06 OFFICE STLMLC STLMLC [id number] Co mmon 00:00:00 00:00:00 VISIT NEW [facility] it PT LEVEL 4 - [facility] 2021-12-29 2021-12-29 (TEL) STLMLC STLMLC [id number] Co mmon 00:00:00 00:00:00 [facility] 2021-11-12 2021-11-12 OFFICE STLMLC STLMLC [id number] Co mmon 00:00:00 00:00:00 VISIT NEW [facility] PT LEVEL 3 - [facility] 2021-11-12 2021-11-12 (TEL) STLMLC STLMLC [id number] Co mmon 00:00:00 00:00:00 [facility] Results Test Description Test Time Test Comments Results Result Comments Source Cytology (non-gynecological) request 2022-06-16 14:13:52 Test Item Value Reference Range Interpretation Comme nts Case number (test code = [id number]) [id number] Cytology (non-gynecological) report (test See link below for PDF La b Report code = 1178) Result status (test code = 9887315) This is Final Report [facility] [id number] [facility] [id number] 14:13:52 Test Item Value Reference Range Interpretation Comments Case number (test code = [id number]) Cytology See link below for (non-gynecological) PDF Lab Report report (test code = 1178) Result status (test code This is Final Report = [id number]) for [id number] [facility]
--- NOTE | 2022-08-13 22:31 | RAD REPORT ---
EXAM DESCRIPTION: US - Extrem Venous W Compress Jose - 08/13/2022 10:26 pm CLINICAL HISTORY: Pain Bilateral leg edema and swelling. COMPARISON: Extremity Nonvascular Complete dated 05/08/2022 TECHNIQUE: Real-time sonographic interrogation of the left and right lower extremity deep venous sys tems was performed. FINDINGS: Normal compressibility, flow augmentation, phasic flow and spontaneous flow is identified in both the left and right lower extremity deep venous systems. IMPRESSION: No sonographic evidence of left or right lower extremity deep venous thrombosis.
[2022-08-13 22:42] LABS: Absolute Lymphocytes (CBC) 1.9 K/uL (0.7-4.9); Hematocrit 47.2 % (36.0-45.0); Lymphocytes % 13.6 % (15.3-44.8); MCV 93.7 fL (80-100); MPV 6.6 fL (7.6-11.3); RBC Red Blood Cell Count 5.04 M/uL (3.86-4.86)
[2022-08-13 23:06] LABS: Albumin 3.3 g/dL (3.4-5.0); Bilirubin Total 0.3 mg/dL (0.2-1.0); Protein, Total 7.8 g/dL (6.4-8.2)
[2022-08-13 23:07] LABS: Potassium 4.5 mmol/L (3.5-5.1)
--- NOTE | 2022-08-13 23:32 | ER ---
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 Coronavirus screen: At this time, the client does not indicate any symptoms associated with coronavirus-19. Ebola Screen: No symptoms or risks identified at this time. Initial Sepsis Screen: Does the patient meet any 2 criteria? No. Patient's initial sepsis screen is negative. Does the patient have a suspected source of infection? No. Patient's initial sepsis screen is negative. Risk Assessment: Do you want to hurt yourself or someone else? Patient reports no desire to harm self or others. Onset of symptoms was August 13, 2022. 21:31 Method Of Arrival: Wheelchair hb 21:31 Acuity: NING 3 hb Historical: - Allergies: 21:33 No Known Allergies; hb - Immunization history:: Adult Immunizations unknown. - Family history:: not pertinent. - Social history:: Smoking status: unknown. Screenin:30 Abuse screen: Denies threats or abuse. Nutritional screening: No deficits noted. jb4 Tuberculosis screening: No symptoms or risk factors identified. Fall Risk None identified. Assessment: 22:34 General: Appears in no apparent distress. comfortable, Behavior is calm, cooperative, jb4 appropriate for age. Pain: Complains of pain in medial aspect of left calf Pain does not radiate. Pain currently is 8 out of 10 on a pain scale. Neuro: Level of Consciousness is awake, alert, obeys commands, Oriented to person, place, time, situation. Cardiovascular: Patient's skin is warm and dry. Respiratory: Airway is patent Respiratory effort is even, unlabored, Respiratory pattern is regular, symmetrical. GI: No signs and/or symptoms were reported involving the gastrointestinal system. : No signs and/or symptoms were reported regarding the genitourinary system. EENT: Derm: Skin is intact, Skin is pink, warm \T\ dry. Musculoskeletal: Circulation, motion, and sensation intact. Range of motion: intact in all extremities. Vital Signs: 21:31 BP 168 / 88; Pulse 88; Resp 16; Temp 98.1; Pulse Ox 100% on R/A; Weight 108.86 kg; hb Height 5 ft. 5 in. (165.10 cm); Pain 8/10; 23:00 BP 146 / 106; Pulse 88; Resp 16; Pulse Ox 96% ; jb4 21:31 Body Mass Index 39.94 (108.86 kg, 165.10 cm) hb ED Course: 21:23 Patient arrived in ED. as 21:33 Triage completed. hb 21:33 Arm band placed on. hb 21:51 Sid Godinez MD is Attending Physician. janine 21:53 Michael De Anda, OZIEL is Primary Nurse. as6 22:28 US Extremity Venous W Compression Jose In Process Unspecified. EDMS 22:30 Initial lab(s) drawn, by nv, sent to lab. Inserted saline lock: 18 gauge in left jb4 forearm, using aseptic technique. Blood collected. 22:33 Comprehensive Metabolic Panel Sent. jb4 22:33 CBC with Diff Sent. jb4 23:49 No provider procedures requiring assistance completed. IV discontinued, intact, as6 bleeding controlled, No redness/swelling at site. Pressure dressing applied. 23:50 Bed in low position. Call light in reach. Side rails up X 1. as6 Administered Medications: No medications were administered Medication: 23:50 VIS not applicable for this client. as6 Outcome: 23:31 Discharge ordered by . [facility] 23:49 Discharged to home via wheelchair. as6 23:49 Condition: stable 23:49 Discharge instructions given to patient, Instructed on discharge instructions, follow up and referral plans. Demonstrated understanding of instructions, follow-up care. 23:50 Patient left the ED. as6 Signatures: Dispatcher [employer] EDIL Sid Godinez MD MD cha Martinez, Amelia as Baxter, Heather, OZIEL LUDWIG Moris Connelly RN RN jb4 Michael De Anda, OZIEL LUDWIG as6
--- NOTE | 2022-08-13 23:32 | EDPHYS ---
Physician Documentation [facility] Name: Margo Moise Age: 61 yrs Sex: Female : 1960 Arrival Date: 08/13/2022 Time: 21:23 Bed 4 Private MD: ED Physician Sid Godinez HPI: 08/13 23:26 This 61 yrs old Female presents to ER via Wheelchair with complaints of leg janine problem. 23:26 The patient presents with pain, that is acute. The complaints affect the lateral aspect janine of left calf and left carvajal. Context: resulted from a direct blow, playing sports, the patient tripping, an unknown cause. Onset: The symptoms/episode began/occurred 5 day(s) ago. Modifying factors: The symptoms are alleviated by nothing. the symptoms are aggravated by nothing. Associated signs and symptoms: The patient has no apparent associated signs or symptoms. Severity of symptoms: At their worst the symptoms were mild, in the emergency department the symptoms are unchanged. The patient has not experienced similar symptoms in the past. Historical: - Allergies: 21:33 No Known Allergies; hb - Immunization history:: Adult Immunizations unknown. - Family history:: not pertinent. - Social history:: Smoking status: unknown. ROS: 23:26 Constitutional: Negative for fever, chills, and weight loss, Eyes: Negative for injury, janine pain, redness, and discharge, ENT: Negative for injury, pain, and discharge, Neck: Negative for injury, pain, and swelling, Cardiovascular: Negative for chest pain, palpitations, and edema, Respiratory: Negative for shortness of breath, cough, wheezing, and pleuritic chest pain, Abdomen/GI: Negative for abdominal pain, nausea, vomiting, diarrhea, and constipation, Back: Negative for injury and pain, : Negative for injury, bleeding, discharge, and swelling, Skin: Negative for injury, rash, and discoloration, Neuro: Negative for headache, weakness, numbness, tingling, and seizure, Psych: Negative for depression, anxiety, suicide ideation, homicidal ideation, and hallucinations, Allergy/Immunology: Negative for hives, rash, and allergies, Endocrine: Negative for neck swelling, polydipsia, polyuria, polyphagia, and marked weight changes, Hematologic/Lymphatic: Negative for swollen nodes, abnormal bleeding, and unusual bruising. 23:26 MS/extremity: Positive for erythema, pain, of the left carvajal. Exam: 23:26 Constitutional: This is a well developed, well nourished patient who is awake, alert, janine and in no acute distress. Head/Face: Normocephalic, atraumatic. Eyes: Pupils equal round and reactive to light, extra-ocular motions intact. Lids and lashes normal. Conjunctiva and sclera are non-icteric and not injected. Cornea within normal limits. Periorbital areas with no swelling, redness, or edema. ENT: Nares patent. No nasal discharge, no septal abnormalities noted. Tympanic membranes are normal and external auditory canals are clear. Oropharynx with no redness, swelling, or masses, exudates, or evidence of obstruction, uvula midline. Mucous membranes moist. Neck: Trachea midline, no thyromegaly or masses palpated, and no cervical lymphadenopathy. Supple, full range of motion without nuchal rigidity, or vertebral point tenderness. No Meningismus. Chest/axilla: Normal chest wall appearance and motion. Nontender with no deformity. No lesions are appreciated. Cardiovascular: Regular rate and rhythm with a normal S1 and S2. No gallops, murmurs, or rubs. Normal PMI, no JVD. No pulse deficits. Respiratory: Lungs have equal breath sounds bilaterally, clear to auscultation and percussion. No rales, rhonchi or wheezes noted. No increased work of breathing, no retractions or nasal flaring. Abdomen/GI: Soft, non-tender, with normal bowel sounds. No distension or tympany. No guarding or rebound. No evidence of tenderness throughout. Back: No spinal tenderness. No costovertebral tenderness. Full range of motion. Skin: Warm, dry with normal turgor. Normal color with no rashes, no lesions, and no evidence of cellulitis. Neuro: Awake and alert, GCS 15, oriented to person, place, time, and situation. Cranial nerves II-XII grossly intact. Motor strength 5/5 in all extremities. Sensory grossly intact. Cerebellar exam normal. Normal gait. Psych: Awake, alert, with orientation to person, place and time. Behavior, mood, and affect are within normal limits. 23:26 Musculoskeletal/extremity: ROM: intact in all extremities, full active range of motion, full passive range of motion, Circulation is intact in all extremities. Sensation intact. Compartment Syndrome exam of affected extremity: is normal. no pain, no numbness, no tingling, no sensation deficit, no palor, no weak pulses, sensation decreased. Vital Signs: 21:31 BP 168 / 88; Pulse 88; Resp 16; Temp 98.1; Pulse Ox 100% on R/A; Weight 108.86 kg; hb Height 5 ft. 5 in. (165.10 cm); Pain 8/10; 23:00 BP 146 / 106; Pulse 88; Resp 16; Pulse Ox 96% ; jb4 21:31 Body Mass Index 39.94 (108.86 kg, 165.10 cm) hb MDM: 21:51 Patient medically screened. janine 23:29 Differential diagnosis: contusion. Data reviewed: vital signs, nurses notes, lab test janine result(s), CBC, electrolytes, radiologic studies, doppler. Data interpreted: nurse monitoring: rate is 88 beats/min, rhythm is regular. Counseling: I had a detailed discussion with the patient and/or guardian regarding: the historical points, exam findings, and any diagnostic results supporting the discharge/admit diagnosis, lab results, radiology results. 08/13 21:51 Order name: CBC with Diff; Complete Time: 23:15 janine 08/13 21:51 Order name: Comprehensive Metabolic Panel; Complete Time: 23:15 janine 08/13 21:51 Order name: US Extremity Venous W Compression Jose; Complete Time: 23:15 janine 08/13 21:51 Order name: IV Saline Lock - Large Bore; Complete Time: 22:33 janine Administered Medications: No medications were administered Disposition Summary: 08/13/22 23:31 Discharge Ordered Location: Home janine Problem: new janine Symptoms: have improved janine Condition: Stable janine Diagnosis - Blister (nonthermal), left lower leg, initial encounter janine - Elevated white blood cell count janine Followup: janine - With: Private Physician - When: 2 - 3 days - Reason: Recheck today's complaints, Continuance of care, Re-evaluation by your physician Discharge Instructions: - Discharge Summary Sheet janine - Blisters, Adult janine - Edema janine - Edema, [id number] janine Forms: - Medication Reconciliation Form janine - Thank You Letter janine - Antibiotic Education janine - Prescription Opioid Use janine Signatures: Dispatcher [employer] EDSid Brothers MD MD cha Baxter, Heather, RN RN hb Michael De Anda, RN RN as6
[2022-08-14 01:26] VITALS: TEMP 98.1
[2022-08-14 01:27] VITALS: BP 146/106; O2SAT 96
== END 2022-08-13 23:50 | disposition home or self-care (01) ==
LOC: ER 21:19
DX: S80.822A Blister (nonthermal), left lower leg, initial encounter (principal); D72.829 Elevated white blood cell count, unspecified
CPT/HCPCS: 36415; 80053; 85025; 93970; 99283

== ENCOUNTER 2023-01-13 14:20 | Emergency (ER) | payer OTHER ==
--- OUTSIDE RECORDS SUMMARY | 2023-01-13 14:22 | XMS REPORT | Clinical Summary ---
:1960 Author Organization [facility] MD [facility] Address [address] [place] [address] Care Team Providers Name Role Phone Svetlana Talamantes MD Unavailable Nick Morris MD Primary Care Provider Allergies Not on File Medications Not on file Active Problems Not on file Encounters Date Type Specialty Care Team Description 12/24/2022 NPR Patient Access Services Nick Morris M D 06/30/2022 Telephone Patient Access Services Ina Melgar RN after 01/13/2022 Social History Tobacco Use Types Packs/Day Years Used Date Smoking Tobacco: Never Assessed Sex Assigned at Date Recorded Not on file Job Start Date Occupation Industry Not on file Not on file Not on file Last Filed Vital Signs Not on file Plan of Treatment Date Type Specialty Care Team Description 02/08/2023 Office Visit Hematology Nick Morris MD [facility] [place], [place] [address] (Wo rk) Results Not on fileafter 01/13/2022 Insurance Payer Benefit Plan / Subscriber ID Effective Phone Address T ype Group Dates [facility] MEDICARE [id number] 2022-Prese [address] [address] Medicare HEALTHCARE ADVANTAGE [place] [employer] [id number] Care Teams 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
--- OUTSIDE RECORDS SUMMARY | 2023-01-13 14:30 | XMS REPORT | Continuity of Care Document ---
:1960 Author Organization [facility] t Address [address] [place] [id number] Care Team Providers Name Role Phone [phone] Primary Care Physician Unavailable SYSTEM, PROVIDER NOT IN Attending Clinician Unavailable Thor Fernandez Attending Clinician Unavailable Raquel Morris MD Attending Clinician RAQUEL MORRIS Attending Clinician Unavailable SHEN ARELLANO Attending Clinician Unavailable SHEN ARELLANO Attending Clinician Unavailable Shen Arellano MD Attending Clinician Aayush SULLIVAN, Malick Mac Attending Clinician [phone] Fatoumata Marie Attending Clinician Ina Melgar RN Attending Clinician Unavailable Ramiro SULLIVAN, Juventino Zambrano Attending Clinician Cindy Guajardo RN Attending Clinician Unavailable SHEN ARELLANO Admitting Clinician Unavailable Payers Payer Name Policy Type Policy Number Effective Date Expiration Date Isiah MARIE OTTO [facility] [id number] [facility] OPTIONS [id number] 2021 00:00:00 Problems Condition Condition Condition Status Onset Resolution Last Treating Co mments Source Name Details Category Date Date Treatment Clinician Date [facility] [place] [facility] Disease Active 2021-[address] right right 2-02 [facility] parotid parotid 00:00: Medical gland gland 00 Center [facility] [place] of Disease Active 2021-09 [facility] right right 0-03 [facility] parotid parotid 00:00: Hospita gland gland 00 l Benign Benign Disease Active Methodi essential essential 12-23 HTN HTN 00:00: Hospita 00 l Insulin Insulin Disease Active [facility]i resistance resistance 12-23 st 00:00: Hospita 00 l Mixed Mixed Disease Active [facility]i hyperlipid hyperlipid 12-23 emia emia 00:00: Hospita 00 l Panic Panic Disease Active [facility]i disorder disorder 12-23 st 00:00: Hospita 00 l [id number] Lymphocyto Problem Com mon sis [facility] [id number] Primary Problem Comm on osteoarthr Spirit itis of [facility] right knee [facility] [id number] Primary Problem Comm on osteoarthr Spirit itis of [facility] left knee [facility] [id number] Arthritis Problem Co mmon [id number] of both Spirit knees [facility] [id number] Leukocytos Problem Co mmon is, Spirit unspecifie - CHI d type [facility] Urinary Urinary Problem Common incontinen incontinen Sp jus ce ce [facility] [id number] TRENT Problem Common (generaliz Spirit ed anxiety - CHI disorder) [facility] [id number] Hypercalce Problem Com mon ana [facility] [id number] Tobacco Problem Commo n use Spirit disorder - [facility] [id number] Essential Problem Comm on (primary) Spirit hypertensi - CHI on [facility] [id number] Morbid Problem Commo n 9104 (severe) Spirit obesity - CHI due to [facility] Increased Other Problem Common blood elevated Spirit leukocyte white - 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 [id number] Primary Problem Common insomnia [facility] [id number] Body mass Problem Com mon index Spirit [BMI] - CHI 40.0-44.9, [facility] [id number] Depression Problem Com mon , major, Spirit single - CHI episode, [facility] [place] [id number] Bilateral Problem Com mon primary Spirit osteoarthr - CHI itis of [facility] [id number] GERD Problem Common without Spirit esophagiti - CHI s [facility] [id number] Migraine Problem Comm on without Spirit aura and - CHI without St status [facility] migrainosu Medica l s, not Center intractabl e White White Problem Common blood cell blood cell Sp jus abnormalit abnormalit - CHI y y [facility] [id number] Abnormal Problem Comm on mammogram Spirit - CHI [facility] Allergies, Adverse Reactions, Alerts Allergy Allergy Status Severity Reaction(s) Onset Inactive Treating Comm ents Source Name Type Date Date Clinician Adhesive Propensi Active Rash 2021-09 Please Method i Tape-Destinee ty to 0-[address] [facility] adverse 00:00: tape when Hospit a reaction 00 doing IVs l s to drug No Known Propensi Active Method i Drug ty to 4 st Allergie adverse 00:00: Hospita s reaction 00 l s to drug NO KNOWN Allergy Active [facility] Latex Latex Active Unknown Common Spirit - [facility]I [facility] Social History Social Habit Start Date Stop Date Quantity Comments Source History of tobacco Smokes tobacco [facility] Gender identity [facility] Sexual orientation [facility] Hospital History SDOH [facility] Alcohol Frequency Medical Center History SDOH [facility] Alcohol Std Drinks Medica l Center History SDOH [facility] Alcohol Binge Medical Sof[address] ter Exposure to 2022-07-28 2022-08-[address] [facility] SARS-CoV-2 (event) 00:00:00 16:48:00 Medica l Center Alcohol intake 2022-08-07 2022-08-07 Current drinker ANU [facility] 00:00:00 00:00:00 of alcohol Medical Center (finding) Alcohol Comment 2022-07-21 2022-07-[address] [facility] 00:00:00 00:00:00 Medical Center Cigarettes smoked 2022-07-21 2022-07-[address] [facility] current (pack per 00:00:00 00:00:00 Medical Center day) - Reported History SDOH 2022-06-10 2022-06-[address] [facility] Physical Activity 00:00:00 00:00:00 of Medi cine DPW History SDOH 2022-06-10 2022-06-[address] [facility] Physical Activity 00:00:00 00:00:00 of Medi cine MPS Cigarette 2022-06-10 2022-06-10 [facility] pack-years 00:00:00 00:00:00 of Medicine Tobacco use and 2022-06-10 2022-06-10 Smokeless [facility]lege exposure 00:00:00 00:00:00 tobacco non-user of Medic ine Sex Ass[birth year] At [birth year] [facility] 00:00:00 00:00:00 Hospital Smoking Status Start Date Stop Date Source Tobacco smoking consumption [facility] unknown Smokes tobacco daily 2022-06-10 00:00:00 [facility] Medications Ordered Filled Start Stop Current Ordering Indication Dosage Frequency Signature Comments Components Source Medication Medication Date Date Medication? Clinician (SIG) Name Name Wai Carreno No 40mg Common (Triamcinol (Triamcinol 1-05 S pirit one) one) 00:00: - [facility] Bupivicaine Bupivicaine 0 No 2.5mg Common [place] 1-05 Spirit 00:00: - [facility] Bupivicaine Bupivicaine 2022-0 No 2.5mg Common [place] 1-05 Spirit 00:00: - [facility] Wai Carreno No 40mg Common (Triamcinol (Triamcinol 1-05 S pirit one) one) 00:00: - [facility] Wai Carreno No 40mg Common (Triamcinol (Triamcinol 1-05 S pirit one) one) 00:00: - [facility]I [facility] Bupivicaine Bupivicaine 2022-0 No 2.5mg Common [place] 1-05 Spirit 00:00: - [facility] Bupivicaine Bupivicaine 2023-0 No 2.5mg Common [place] 1-05 Spirit 00:00: - CHI 00 [facility] Kenalog Kenalog No 40mg Common (Triamcinol (Triamcinol 1-05 S pirit one) one) 00:00: - CHI 00 [facility] valsartan 2021-09 Yes Nitesh (DIOVAN) 2-12 College 160 MG 11:30: of tablet 25 Medicin e Metoprolol- 2021-09 Yes [facility] Hydrochloro 2-12 [place] thiazide 11:30: of 50-12.5 MG 25 Medicin TB24 e hydrocodone 2021-09 Yes 1{tbl} Take 1 [facility] -acetaminop 2-12 Tablet by Col lege hen (NORCO) 00:00: mouth of 10-325 MG 00 every 6 Medicin per tablet hours as e needed for Pain. meloxicam 2021-09 Yes 15mg Take 1 [facility] (MOBIC) 15 2-12 Tablet by Danielle ege MG tablet 00:00: mouth of 00 daily. Medicin e methylPREDN 2021-09 Yes Take as [place] ISolone 4 2-07 directed Colleg e MG TBPK 00:00: on package of 00 Medicin e amoxicillin 2021-09 Yes 1{tbl} Take 1 [facility] -clavulanat 2-07 Tablet by Col lege e 00:00: mouth two of (AUGMENTIN) 00 times Medicin 875-125 MG daily. e per tablet valsartan 2021-09 Yes 160mg QD Take [address] (DIOVAN) 2-03 mg by [facility]ukes 160 MG 10:49: mouth Medical tablet 15 daily. [place] metoprolol 2021-09 Yes QD Take by [facility] shah-hydrochl 2-03 mouth [facility]ukes orothiaz 10:49: daily. Medical 50-12.5 mg 15 [place] Tb24 amitriptyli 2021-09 Yes 100mg QD Take [address] (ELAVIL) 2-03 mg by [facility]ukes 100 MG 10:49: mouth Medical tablet 15 nightly. [place] valsartan 2021-09 Yes 160mg QD Take [address] (DIOVAN) 2-03 mg by [facility]ukes 160 MG 10:49: mouth Medical tablet 15 daily. [place] metoprolol 2021-09 Yes QD Take by [facility] shah-hydrochl 2-03 mouth Lukes orothiaz 10:49: daily. Medical 50-12.5 mg 15 [place] [address] amitriptyli 2021-09 Yes 100mg QD Take [address] (ELAVIL) 2-03 mg by [facility]ukes 100 MG 10:49: mouth Medical tablet 15 nightly. [place] valsartan 2021-09 Yes 160mg QD Take [address] (DIOVAN) 2-03 mg by [facility]ukes 160 MG 10:49: mouth Medical tablet 15 daily. [place] metoprolol 2021-09 Yes QD Take by [facility] shah-hydrochl 2-03 mouth [facility]ukes orothiaz 10:49: daily. Medical 50-12.5 mg 15 [place] [address] amitriptyli 2021-09 Yes 100mg QD Take [address] (ELAVIL) 2-03 mg by [facility]ukes 100 MG 10:49: mouth Medical tablet 15 nightly. [place] docusate 2021-09 No 100mg Q.5D Take 1 CHI S t sodium 2- 12-13 capsule Lukes (COLACE) 00:00: 23:59 (100 mg Medic al 100 MG 00 :00 total) by Center capsule mouth 2 (two) times daily for 10 days. docusate 2021-09 No 100mg Q.5D Take 1 CHI S t sodium 2- 12-13 capsule [facility]ukes (COLACE) 00:00: 23:59 (100 mg Medic al 100 MG 00 :00 total) by Center capsule mouth 2 (two) times daily for 10 days. docusate 2021-09- No 100mg Q.5D Take 1 CHI S t sodium 2- 12-13 capsule Lukes (COLACE) 00:00: 23:59 (100 mg Medic al 100 MG 00 :00 total) by Center capsule mouth 2 (two) times daily for 10 days. ondansetron 2021-09 No 4mg Take [address] (ZOFRAN-ODT 2- 12-10 tablet (4 Reina kes ) 4 MG 00:00: 23:59 mg total) Medic al disintegrat 00 :00 by mouth Cent er ing tablet every 8 (eight) hours as needed for Nausea for up to 7 days. ondansetron 2022-1 2022- No 4mg Take [address] (ZOFRAN-ODT 2-03 12-10 tablet (4 Reina kes ) 4 MG 00:00: 23:59 mg total) Medic al disintegrat 00 :00 by mouth Cent er ing tablet every 8 (eight) hours as needed for Nausea for up to 7 days. ondansetron 2021-09- No 4mg Take [address] (ZOFRAN-ODT 2-03 12-10 tablet (4 Reina kes ) 4 MG 00:00: 23:59 mg total) Medic al disintegrat 00 :00 by mouth Cent er ing tablet every 8 (eight) hours as needed for Nausea for up to 7 days. valsartan 2021-09 Yes 160mg QD Take [address] (DIOVAN) 2-02 mg by Lukes 160 MG 07:16: mouth Medical tablet 35 daily. [place] metoprolol 2021-09 Yes QD Take by [facility] shah-hydrochl 2-02 mouth Lukes orothiaz 07:16: daily. Medical 50-12.5 mg 35 [place] [address] amitriptyli 2021-09 Yes 100mg QD Take [address] (ELAVIL) 2-02 mg by Lukes 100 MG 07:16: mouth Medical tablet 35 nightly. [place] valsartan 2021-09 Yes 160mg QD Take [address] (DIOVAN) 2-02 mg by Lukes 160 MG 07:16: mouth Medical tablet 35 daily. [place] metoprolol 2021-09 Yes QD Take by [facility] shah-hydrochl 2-02 mouth Lukes orothiaz 07:16: daily. Medical 50-12.5 mg 35 [place] [address] amitriptyli 2021-09 Yes 100mg QD Take [address] (ELAVIL) 2-02 mg by Lukes 100 MG 07:16: mouth Medical tablet 35 nightly. [place] HYDROcodone 2021-09- No 1{tbl} Take [address] -acetaminop 2-02 12-12 tablet by Reina kes hen (Sixes) 00:00: 23:59 mouth Medi stephanie 10-325 mg 00 :00 every 6 Center per tablet (six) hours as needed for Pain for up to 10 days. Max Daily Amount: 4 tablets HYDROcodone 2021-09- No 1{tbl} Take [address] -acetaminop 2-02 12-12 tablet by Reina bryces aguila ([employer] 00:00: 23:59 mouth Medi stephanie 10-325 mg 00 :00 every 6 Center per tablet (six) hours as needed for Pain for up to 10 days. Max Daily Amount: 4 tablets HYDROcodone 2021-09- No 1{tbl} Take [address] -acetaminop 2-02 12-12 tablet by Reina conrado sheehan ([employer] 00:00: 23:59 mouth Medi stephanie 10-325 mg 00 :00 every 6 Center per tablet (six) hours as needed for Pain for up to 10 days. Max Daily Amount: 4 tablets valsartan 2021-09 Yes 160mg QD Take [address] (DIOVAN) 1-15 mg by Lukes 160 MG 14:34: mouth Medical tablet 39 daily. [place] metoprolol 2021-09 Yes QD Take by [facility] shah-hydrochl 1-15 mouth Lukes orothiaz 14:34: daily. Medical 50-12.5 mg 39 Center Tb24 amitriptyli 2021-09 Yes 100mg QD Take [address] (ELAVIL) 1-15 mg by [facility]ukes 100 MG 14:34: mouth Medical tablet 39 nightly. Center amitriptyli 2021-09 Yes 100mg QD 1 tablet M ethodi ne (ELAVIL) 0-07 ([address] 100 MG 10:59: total) Hospita tablet 19 nightly. amitriptyli 2021-09 Yes 100mg QD 1 tablet M ethodi ne (ELAVIL) 0-07 ([address] 100 MG 10:59: total) Hospita tablet 19 nightly. l amitriptyli 2021-09 Yes 100mg QD 1 tablet M ethodi ne (ELAVIL) 0-07 ([address] 100 MG 10:59: total) Hospita tablet 19 nightly. l valsartan 2021-09 Yes [facility] (DIOVAN) 0-05 [facility] 160 MG 14:55: of tablet 32 Medicin e Metoprolol- 2021-09 Yes [facility] Hydrochloro 0-05 [place] thiazide 14:55: of 50-12.5 MG 32 Medicin TB24 e Hyalgan 20 Hyalgan 20 2021-09 No 20mg C ommon mg mg 0-04 Spirit 00:00: - CHI 00 [facility] Hyalgan 20 Hyalgan 20 2021-09 No 20mg C ommon mg mg 0-04 Spirit 00:00: - CHI 00 [facility] Hyalgan 20 Hyalgan 20 2021-09 No 20mg C ommon mg mg 0-04 Spirit 00:00: - CHI 00 [facility] Hyalgan 20 Hyalgan 20 2021-09 No 20mg C ommon mg mg 0-04 Spirit 00:00: - CHI 00 [facility] Hyalgan 20 Hyalgan 20 2021-09 No 20mg C ommon mg mg 0-04 Spirit 00:00: - CHI 00 [facility] Hyalgan 20 Hyalgan 20 2021-09 No 20mg C ommon mg mg 0-04 Spirit 00:00: - CHI 00 [facility] Hyalgan 20 Hyalgan 20 2021-09 No 20mg C ommon mg mg 0-04 Spirit 00:00: - CHI 00 [facility] Hyalgan 20 Hyalgan 20 2021-09 No 20mg C ommon mg mg 0-04 Spirit 00:00: - CHI 00 [facility] Hyalgan 20 Hyalgan 20 2021-09 No 20mg C ommon mg mg 0-04 Spirit 00:00: - CHI 00 [facility] Hyalgan 20 Hyalgan 20 2021-09 No 20mg C ommon mg mg 0-04 Spirit 00:00: - CHI 00 [facility] Hyalgan 20 Hyalgan 20 2021-09 No 20mg C ommon mg mg 0-04 Spirit 00:00: - CHI 00 [facility] Hyalgan 20 Hyalgan 20 2021-09 No 20mg C ommon mg mg 0-04 Spirit 00:00: - CHI 00 [facility] Hyalgan 20 Hyalgan 20 2021-09 No 20mg C ommon mg mg 0-04 Spirit 00:00: - CHI 00 [facility] Hyalgan 20 Hyalgan 20 2021-09 No 20mg C ommon mg mg 0-04 Spirit 00:00: - CHI 00 [facility] Hyalgan 20 Hyalgan 20 2021-09 No 20mg C ommon mg mg 0-04 Spirit 00:00: - CHI 00 [facility] Hyalgan 20 Hyalgan 20 2021-09 No 20mg C ommon mg mg 0-04 Spirit 00:00: - CHI 00 [facility] Hyalgan 20 Hyalgan 20 2021-09 No 20mg C ommon mg mg 0-04 Spirit 00:00: - CHI 00 [facility] Hyalgan 20 Hyalgan 20 2021-09 No 20mg C ommon mg mg 0-04 Spirit 00:00: - CHI 00 [facility] Hyalgan 20 Hyalgan 20 2021-09 No 20mg C ommon mg mg 0-04 Spirit 00:00: - CHI 00 [facility] Hyalgan 20 Hyalgan 20 2021-09 No 20mg C ommon mg mg 0-04 Spirit 00:00: - CHI 00 [facility] Hyalgan 20 Hyalgan 20 2021-09 No 20mg C ommon mg mg 0-04 Spirit 00:00: - CHI 00 [facility] Hyalgan 20 Hyalgan 20 2021-09 No 20mg C ommon mg mg 0-04 Spirit 00:00: - CHI 00 [facility] Hyalgan 20 Hyalgan 20 2021-09 No 20mg C ommon mg mg 0-04 Spirit 00:00: - CHI 00 [facility] Hyalgan 20 Hyalgan 20 2021-09 No 20mg C ommon mg mg 0-04 Spirit 00:00: - CHI [facility] Hyalgan 20 Hyalgan 20 2021-09 No 20mg C ommon mg mg 0-04 Spirit 00:00: - CHI 00 [facility] Hyalgan 20 Hyalgan 20 2021-09 No 20mg C ommon mg mg 0-04 Spirit 00:00: - CHI 00 [facility] Hyalgan 20 Hyalgan 20 2021-09 No 20mg C ommon mg mg 0-04 Spirit 00:00: - CHI 00 [facility] Hyalgan 20 Hyalgan 20 2021-09 No 20mg C ommon mg mg 0-04 Spirit 00:00: - CHI 00 [facility] Hyalgan 20 Hyalgan 20 2021-09 No 20mg C ommon mg mg 0-04 Spirit 00:00: - CHI 00 [facility] Hyalgan 20 Hyalgan 20 2021-09 No 20mg C ommon mg mg 0-04 Spirit 00:00: - CHI 00 [facility] Hyalgan 20 Hyalgan 20 2021-09 No 20mg C ommon mg mg 0-04 Spirit 00:00: - CHI 00 [facility] Hyalgan 20 Hyalgan 20 2021-09 No 20mg C ommon mg mg 0-04 Spirit 00:00: - CHI 00 [facility] Hyalgan 20 Hyalgan 20 2021-09 No 20mg C ommon mg mg 0-04 Spirit 00:00: - CH[facility] Hyalgan 20 Hyalgan 20 2021-09 No 20mg C ommon mg mg 0-04 Spirit 00:00: - CHI [facility] Hyalgan 20 Hyalgan 20 2021-09 No 20mg C ommon mg mg 0-04 Spirit 00:00: - CH[facility] Hyalgan 20 Hyalgan 20 2021-09 No 20mg C ommon mg mg 0-04 Spirit 00:00: - CHI [facility] Hyalgan 20 Hyalgan 20 2021-09 No 20mg C ommon mg mg 0-04 Spirit 00:00: - CH[facility] Hyalgan 20 Hyalgan 20 2021-09 No 20mg C ommon mg mg 0-04 Spirit 00:00: - CH[facility] levofloxaci 2021-[address] ([facility]) 00:00: of 750 MG 00 Medicin tablet e levofloxaci 2021-[address] ([facility] 00:00: of 750 MG 00 Medicin tablet e Hyalgan 20 Hyalgan 20 2021-0 No 20mg C ommon mg mg 06-01 Spirit 00:00: - CH[facility] Hyalgan 20 Hyalgan 20 2021-0 No 20mg C ommon mg mg 06-01 Spirit 00:00: - CH[facility] Hyalgan 20 Hyalgan 20 2021-0 No 20mg C ommon mg mg 06-01 Spirit 00:00: - [facility] Hyalgan 20 Hyalgan 20 2021-0 No 20mg C ommon mg mg 06-01 Spirit 00:00: - CH[facility] Hyalgan 20 Hyalgan 20 2021-0 No 20mg C ommon mg mg 06-01 Spirit 00:00: - CH[facility] Hyalgan 20 Hyalgan 20 2021-0 No 20mg C ommon mg mg 06-01 Spirit 00:00: - [facility] Hyalgan 20 Hyalgan 20 2021-0 No 20mg C ommon mg mg 06-01 Spirit 00:00: - CH[facility] Hyalgan 20 Hyalgan 20 2021-0 No 20mg C ommon mg mg 06-01 Spirit 00:00: - [facility] Hyalgan 20 Hyalgan 20 2021-0 No 20mg C ommon mg mg 06-01 Spirit 00:00: - CH[facility] Hyalgan 20 Hyalgan 20 2021-0 No 20mg C ommon mg mg 06-01 Spirit 00:00: - CH[facility] Hyalgan 20 Hyalgan 20 2021-0 No 20mg C ommon mg mg 06-01 Spirit 00:00: - CH[facility] Hyalgan 20 Hyalgan 20 2021-0 No 20mg C ommon mg mg 06-01 Spirit 00:00: - CH[facility] Hyalgan 20 Hyalgan 20 2021-0 No 20mg C ommon mg mg 06-01 Spirit 00:00: - CH[facility] Hyalgan 20 Hyalgan 20 2021-0 No 20mg C ommon mg mg 06-01 Spirit 00:00: - CH[facility] Hyalgan 20 Hyalgan 20 2021-0 No 20mg C ommon mg mg 06-01 Spirit 00:00: - CH[facility] Hyalgan 20 Hyalgan 20 2021-0 No 20mg C ommon mg mg 06-01 Spirit 00:00: - CH[facility] Hyalgan 20 Hyalgan 20 2021-0 No 20mg C ommon mg mg 06-01 Spirit 00:00: - CH[facility] Hyalgan 20 Hyalgan 20 2021-0 No 20mg C ommon mg mg 06-01 Spirit 00:00: - CH[facility] Hyalgan 20 Hyalgan 20 2021-0 No 20mg C ommon mg mg 06-01 Spirit 00:00: - [facility] Hyalgan 20 Hyalgan 20 2021-0 No 20mg C ommon mg mg 06-01 Spirit 00:00: - CH[facility] Hyalgan 20 Hyalgan 20 2021-0 No 20mg C ommon mg mg 06-01 Spirit 00:00: - [facility] Hyalgan 20 Hyalgan 20 2021-0 No 20mg C ommon mg mg 06-01 Spirit 00:00: - [facility] Hyalgan 20 Hyalgan 20 2021-0 No 20mg C ommon mg mg 06-01 Spirit 00:00: - [facility] Hyalgan 20 Hyalgan 20 2021-0 No 20mg C ommon mg mg 06-01 Spirit 00:00: - [facility] Hyalgan 20 Hyalgan 20 2021-0 No 20mg C ommon mg mg 06-01 Spirit 00:00: - [facility] Hyalgan 20 Hyalgan 20 2021-0 No 20mg C ommon mg mg 06-01 Spirit 00:00: - [facility] Hyalgan 20 Hyalgan 20 2021-0 No 20mg C ommon mg mg 06-01 Spirit 00:00: - [facility] Hyalgan 20 Hyalgan 20 2021-0 No 20mg C ommon mg mg 06-01 Spirit 00:00: - [facility] Hyalgan 20 Hyalgan 20 2021-0 No 20mg C ommon mg mg 06-01 Spirit 00:00: - [facility] Hyalgan 20 Hyalgan 20 2021-0 No 20mg C ommon mg mg 06-01 Spirit 00:00: - [facility] Hyalgan 20 Hyalgan 20 2021-0 No 20mg C ommon mg mg 06-01 Spirit 00:00: - [facility] Hyalgan 20 Hyalgan 20 2021-0 No 20mg C ommon mg mg 06-01 Spirit 00:00: - [facility] Hyalgan 20 Hyalgan 20 2021-0 No 20mg C ommon mg mg 06-01 Spirit 00:00: - [facility] Hyalgan 20 Hyalgan 20 2021-0 No 20mg C ommon mg mg 06-01 Spirit 00:00: - CHI 00 [facility] Hyalgan 20 Hyalgan 20 2021-0 No 20mg C ommon mg mg 06-01 Spirit 00:00: - [facility] Hyalgan 20 Hyalgan 20 2021-0 No 20mg C ommon mg mg 06-01 Spirit 00:00: - [facility] Hyalgan 20 Hyalgan 20 2021-0 No 20mg C ommon mg mg 06-01 Spirit 00:00: - [facility] Hyalgan 20 Hyalgan 20 2021-0 No 20mg C ommon mg mg 06-01 Spirit 00:00: - [facility] Hyalgan 20 Hyalgan 20 2021-0 No 20mg C ommon mg mg 06-01 Spirit 00:00: - [facility] Hyalgan 20 Hyalgan 20 2021-0 No 20mg C ommon mg mg 06-01 Spirit 00:00: - [facility] Hyalgan 20 Hyalgan 20 2021-0 No 20mg C ommon mg mg 06-01 Spirit 00:00: - [facility] Hyalgan 20 Hyalgan 20 2021-0 No 20mg C ommon mg mg 06-01 Spirit 00:00: - [facility] Hyalgan 20 Hyalgan 20 2021-0 No 20mg C ommon mg mg 06-01 Spirit 00:00: - [facility] Hyalgan 20 Hyalgan 20 2021-0 No 20mg C ommon mg mg 06-01 Spirit 00:00: - [facility] Hyalgan 20 Hyalgan 20 2021-0 No 20mg C ommon mg mg 06-01 Spirit 00:00: - [facility] Hyalgan 20 Hyalgan 20 2021-0 No 20mg C ommon mg mg 06-01 Spirit 00:00: - [facility] Kenalog Kenalog 2021-0 No 40mg Common (Triamcinol (Triamcinol 9-19 S pirit one) one) 00:00: - [facility] Naropin Naropin 2021-0 No 1mg Common (Ropivacain (Ropivacain 9-19 S pirit e HCl) e HCl) 00:00: - CHI 00 [facility] Hyalgan 20 Hyalgan 20 2021-0 No 20mg C ommon mg mg 05-25 Spirit 00:00: - CHI 00 [facility] Kenalog Kenalog 2021-0 No 40mg Common (Triamcinol (Triamcinol 9-19 S pirit one) one) 00:00: - CHI 00 [facility] Naropin Naropin 2021-0 No 1mg Common (Ropivacain (Ropivacain 9-19 S pirit e HCl) e HCl) 00:00: - CHI 00 [facility] Hyalgan 20 Hyalgan 20 2021-0 No 20mg C ommon mg mg 05-25 Spirit 00:00: - CHI 00 [facility] Kenalog Kenalog 2021-0 No 40mg Common (Triamcinol (Triamcinol 9-19 S pirit one) one) 00:00: - CHI 00 [facility] Kenalog Kenalog 2021-0 No 40mg Common (Triamcinol (Triamcinol 9-19 S pirit one) one) 00:00: - CHI 00 [facility] Naropin Naropin 2021-0 No 1mg Common (Ropivacain (Ropivacain 9-19 S pirit e HCl) e HCl) 00:00: - [facility] Hyalgan 20 Hyalgan 20 2021-0 No 20mg C ommon mg mg 05-25 Spirit 00:00: - CHI 00 [facility] Naropin Naropin 2021-0 No 1mg Common (Ropivacain (Ropivacain 9-19 S pirit e HCl) e HCl) 00:00: - CHI 00 [facility] Kenalog Kenalog 2021-0 No 40mg Common (Triamcinol (Triamcinol 9-19 S pirit one) one) 00:00: - CHI 00 [facility] Naropin Naropin 2021-0 No 1mg Common (Ropivacain (Ropivacain 9-19 S pirit e HCl) e HCl) 00:00: - [facility] Hyalgan 20 Hyalgan 20 2021-0 No 20mg C ommon mg mg 05-25 Spirit 00:00: - CHI 00 [facility] Hyalgan 20 Hyalgan 20 2021-0 No 20mg C ommon mg mg 05-25 Spirit 00:00: - [facility] Kenalog Kenalog 2021-0 No 40mg Common (Triamcinol (Triamcinol 9-19 S pirit one) one) 00:00: - [facility] Naropin Naropin 2021-0 No 1mg Common (Ropivacain (Ropivacain 9-19 S pirit e HCl) e HCl) 00:00: - [facility] Hyalgan 20 Hyalgan 20 2021-0 No 20mg C ommon mg mg 05-25 Spirit 00:00: - [facility] Kenalog Kenalog 0 No 40mg Common (Triamcinol (Triamcinol 9-19 S pirit one) one) 00:00: - [facility] Naropin Naropin 2021-0 No 1mg Common (Ropivacain (Ropivacain 9-19 S pirit e HCl) e HCl) 00:00: - [facility] Hyalgan 20 Hyalgan 20 2021-0 No 20mg C ommon mg mg 05-25 Spirit 00:00: - [facility] Kenalog Kenalog 2021-0 No 40mg Common (Triamcinol (Triamcinol 9-19 S pirit one) one) 00:00: - [facility] Naropin Naropin 2021-0 No 1mg Common (Ropivacain (Ropivacain 9-19 S pirit e HCl) e HCl) 00:00: - [facility] Hyalgan 20 Hyalgan 20 2021-0 No 20mg C ommon mg mg 05-25 Spirit 00:00: - [facility] Kenalog Kenalog 2021-0 No 40mg Common (Triamcinol (Triamcinol 9-19 S pirit one) one) 00:00: - [facility] Naropin Naropin 2021-0 No 1mg Common (Ropivacain (Ropivacain 9-19 S pirit e HCl) e HCl) 00:00: - [facility] Hyal[place] 20 Hyalgan 20 2021-0 No 20mg C ommon mg mg 05-25 Spirit 00:00: - [facility] Ken[place] Kenalog 2021-0 No 40mg Common (Triamcinol (Triamcinol 9-19 S pirit one) one) 00:00: - [facility] Naropin Naropin 2021-0 No 1mg Common (Ropivacain (Ropivacain 9-19 S pirit e HCl) e HCl) 00:00: - [facility] Hyalgan 20 Hyalgan 20 2021-0 No 20mg C ommon mg mg 05-25 Spirit 00:00: - [facility] [place] Kenalog 0 No 40mg Common (Triamcinol (Triamcinol 9-19 S pirit one) one) 00:00: - [facility] Naropin Naropin 2021-0 No 1mg Common (Ropivacain (Ropivacain 9-19 S pirit e HCl) e HCl) 00:00: - [facility] Hyalgan 20 Hyalgan 20 2021-0 No 20mg C ommon mg mg 05-25 Spirit 00:00: - [facility] [place] Kenalog 2021-0 No 40mg Common (Triamcinol (Triamcinol 9-19 S pirit one) one) 00:00: - [facility] Naropin Naropin 2021-0 No 1mg Common (Ropivacain (Ropivacain 9-19 S pirit e HCl) e HCl) 00:00: - [facility] Hyalgan 20 Hyalgan 20 2021-0 No 20mg C ommon mg mg 05-25 Spirit 00:00: - [facility] [place] Kenalog 2021-0 No 40mg Common (Triamcinol (Triamcinol 9-19 S pirit one) one) 00:00: - [facility] Nar[place] Naropin 2021-0 No 1mg Common (Ropivacain (Ropivacain 9-19 S pirit e HCl) e HCl) 00:00: - [facility] Hyalgan 20 Hyalgan 20 2021-0 No 20mg C ommon mg mg 05-25 Spirit 00:00: - [facility] [place] Kenalog 0 No 40mg Common (Triamcinol (Triamcinol 9-19 S pirit one) one) 00:00: - [facility] Naropin Naropin 2021-0 No 1mg Common (Ropivacain (Ropivacain 9-19 S pirit e HCl) e HCl) 00:00: - [facility] Hyalgan 20 Hyalgan 20 2021-0 No 20mg C ommon mg mg 05-25 Spirit 00:00: - [facility] [place] Kenalog 0 No 40mg Common (Triamcinol (Triamcinol 9-19 S pirit one) one) 00:00: - [facility] Naropin Naropin 2021-0 No 1mg Common (Ropivacain (Ropivacain 9-19 S pirit e HCl) e HCl) 00:00: - [facility] Hyalgan 20 Hyalgan 20 2021-0 No 20mg C ommon mg mg 05-25 Spirit 00:00: - [facility] [place] Kenalog 0 No 40mg Common (Triamcinol (Triamcinol 9-19 S pirit one) one) 00:00: - [facility] Naropin Naropin 2021-0 No 1mg Common (Ropivacain (Ropivacain 9-19 S pirit e HCl) e HCl) 00:00: - [facility] Hyalgan 20 Hyalgan 20 2021-0 No 20mg C ommon mg mg 05-25 Spirit 00:00: - [facility] Ken[place] Kenalog 2021-0 No 40mg Common (Triamcinol (Triamcinol 9-19 S pirit one) one) 00:00: - [facility] Naropin Naropin 2021-0 No 1mg Common (Ropivacain (Ropivacain 9-19 S pirit e HCl) e HCl) 00:00: - [facility] Hyalgan 20 Hyalgan 20 2021-0 No 20mg C ommon mg mg 05-25 Spirit 00:00: - [facility] Ken[place] Kenalog 0 No 40mg Common (Triamcinol (Triamcinol 9-19 S pirit one) one) 00:00: - [facility] Naropin Naropin 0 No 1mg Common (Ropivacain (Ropivacain 9-19 S pirit e HCl) e HCl) 00:00: - [facility] Hyalgan 20 Hyalgan 20 0 No 20mg C ommon mg mg 05-25 Spirit 00:00: - [facility] Ken[place] Kenalog 0 No 40mg Common (Triamcinol (Triamcinol 9-19 S pirit one) one) 00:00: - [facility] Naropin Naropin 0 No 1mg Common (Ropivacain (Ropivacain 9-19 S pirit e HCl) e HCl) 00:00: - [facility] Hyalgan 20 Hyalgan 20 0 No 20mg C ommon mg mg 05-25 Spirit 00:00: - [facility] Ken[place] Kenalog 0 No 40mg Common (Triamcinol (Triamcinol 9-19 S pirit one) one) 00:00: - [facility] Naropin Naropin 0 No 1mg Common (Ropivacain (Ropivacain 9-19 S pirit e HCl) e HCl) 00:00: - [facility] Hyalgan 20 Hyalgan 20 2021-0 No 20mg C ommon mg mg 05-25 Spirit 00:00: - [facility] Ken[place] Kenalog 0 No 40mg Common (Triamcinol (Triamcinol 9-19 S pirit one) one) 00:00: - [facility] Hyalgan 20 Hyalgan 20 2021-0 No 20mg C ommon mg mg 05-25 Spirit 00:00: - [facility] Ken[place] Kenalog 2021-0 No 40mg Common (Triamcinol (Triamcinol 9-19 S pirit one) one) 00:00: - [facility] Naropin Naropin 2021-0 No 1mg Common (Ropivacain (Ropivacain 9-19 S pirit e HCl) e HCl) 00:00: - [facility] Naropin Naropin 2021-0 No 1mg Common (Ropivacain (Ropivacain 9-19 S pirit e HCl) e HCl) 00:00: - [facility] Hyalgan 20 Hyalgan 20 2021-0 No 20mg C ommon mg mg 05-25 Spirit 00:00: - [facility] Ken[place] Kenalog 2021-0 No 40mg Common (Triamcinol (Triamcinol 9-19 S pirit one) one) 00:00: - [facility] Naropin Naropin 2021-0 No 1mg Common (Ropivacain (Ropivacain 9-19 S pirit e HCl) e HCl) 00:00: - [facility] Hyalgan 20 Hyalgan 20 2021-0 No 20mg C ommon mg mg 05-25 Spirit 00:00: - [facility] Hyalgan 20 Hyalgan 20 2021-0 No 20mg C ommon mg mg 05-25 Spirit 00:00: - [facility] Ken[place] Kenalog 2021-0 No 40mg Common (Triamcinol (Triamcinol 9-19 S pirit one) one) 00:00: - [facility] Nar[place] Naropin 2021-0 No 1mg Common (Ropivacain (Ropivacain 9-19 S pirit e HCl) e HCl) 00:00[facility] Common (Triamcinol (Triamcinol 9-19 S pirit one) one) 00:00: - [facility] Naropin Naropin 2021-0 No 1mg Common (Ropivacain (Ropivacain 9-19 S pirit e HCl) e HCl) 00:00: - [facility] Hyalgan 20 Hyalgan 20 2021-0 No 20mg C ommon mg mg 05-25 Spirit 00:00: - [facility] [place] Kenalog 0 No 40mg Common (Triamcinol (Triamcinol 9-19 S pirit one) one) 00:00: - [facility] Naropin Naropin 0 No 1mg Common (Ropivacain (Ropivacain 9-19 S pirit e HCl) e HCl) 00:00: - [facility] Hyalgan 20 Hyalgan 20 2021-0 No 20mg C ommon mg mg 05-25 Spirit 00:00: - [facility] [place] Kenalog 0 No 40mg Common (Triamcinol (Triamcinol 9-19 S pirit one) one) 00:00: - [facility] Naropin Naropin 0 No 1mg Common (Ropivacain (Ropivacain 9-19 S pirit e HCl) e HCl) 00:00: - [facility] Hyalgan 20 Hyalgan 20 2021-0 No 20mg C ommon mg mg 05-25 Spirit 00:00: - [facility] [place] Kenalog 0 No 40mg Common (Triamcinol (Triamcinol 9-19 S pirit one) one) 00:00: - [facility] Naropin Naropin 0 No 1mg Common (Ropivacain (Ropivacain 9-19 S pirit e HCl) e HCl) 00:00: - [facility] Hyalgan 20 Hyalgan 20 2021-0 No 20mg C ommon mg mg 05-25 Spirit 00:00: - [facility] [place] Kenalog 2021-0 No 40mg Common (Triamcinol (Triamcinol 9-19 S pirit one) one) 00:00: - [facility] Nar[place] Naropin 2021-0 No 1mg Common (Ropivacain (Ropivacain 9-19 S pirit e HCl) e HCl) 00:00: - [facility] Hyalgan 20 Hyalgan 20 2021-0 No 20mg C ommon mg mg 05-25 Spirit 00:00: - [facility] [place] Kenalog 0 No 40mg Common (Triamcinol (Triamcinol 9-19 S pirit one) one) 00:00: - [facility] Naropin Naropin 0 No 1mg Common (Ropivacain (Ropivacain 9-19 S pirit e HCl) e HCl) 00:00: - [facility] Hyalgan 20 Hyalgan 20 2021-0 No 20mg C ommon mg mg 05-25 Spirit 00:00: - [facility] [place] Kenalog 0 No 40mg Common (Triamcinol (Triamcinol 9-19 S pirit one) one) 00:00: - [facility] Naropin Naropin 0 No 1mg Common (Ropivacain (Ropivacain 9-19 S pirit e HCl) e HCl) 00:00: - [facility] Hyalgan 20 Hyalgan 20 2021-0 No 20mg C ommon mg mg 05-25 Spirit 00:00: - [facility] [place] Kenalog 0 No 40mg Common (Triamcinol (Triamcinol 9-19 S pirit one) one) 00:00: - [facility] Naropin Naropin 0 No 1mg Common (Ropivacain (Ropivacain 9-19 S pirit e HCl) e HCl) 00:00: - [facility] Hyalgan 20 Hyalgan 20 2021-0 No 20mg C ommon mg mg 05-25 Spirit 00:00: - [facility] [place] Kenalog 0 No 40mg Common (Triamcinol (Triamcinol 9-19 S pirit one) one) 00:00: - [facility] Naropin Naropin 0 No 1mg Common (Ropivacain (Ropivacain 9-19 S pirit e HCl) e HCl) 00:00: - [facility] Hyalgan 20 Hyalgan 20 2021-0 No 20mg C ommon mg mg 05-25 Spirit 00:00: - [facility] [place] Kenalog 0 No 40mg Common (Triamcinol (Triamcinol 9-19 S pirit one) one) 00:00: - [facility] Naropin Naropin 0 No 1mg Common (Ropivacain (Ropivacain 9-19 S pirit e HCl) e HCl) 00:00: - [facility] Hyalgan 20 Hyalgan 20 2021-0 No 20mg C ommon mg mg 05-25 Spirit 00:00: - [facility] Ken[place] Kenalog 0 No 40mg Common (Triamcinol (Triamcinol 9-19 S pirit one) one) 00:00: - [facility] Naropin Naropin 0 No 1mg Common (Ropivacain (Ropivacain 9-19 S pirit e HCl) e HCl) 00:00: - [facility] Hyalgan 20 Hyalgan 20 2021-0 No 20mg C ommon mg mg 05-25 Spirit 00:00: - [facility] [place] Kenalog 0 No 40mg Common (Triamcinol (Triamcinol 9-19 S pirit one) one) 00:00: - [facility] Naropin Naropin 0 No 1mg Common (Ropivacain (Ropivacain 9-19 S pirit e HCl) e HCl) 00:00: - [facility] Hyalgan 20 Hyalgan 20 2021-0 No 20mg C ommon mg mg 05-25 Spirit 00:00: - [facility] [place] Kenalog 0 No 40mg Common (Triamcinol (Triamcinol 9-19 S pirit one) one) 00:00: - [facility] Naropin Naropin 2021-0 No 1mg Common (Ropivacain (Ropivacain 9-19 S pirit e HCl) e HCl) 00:00: - [facility] Hyalgan 20 Hyalgan 20 2021-0 No 20mg C ommon mg mg 05-25 Spirit 00:00: - [facility] [place] Kenalog 0 No 40mg Common (Triamcinol (Triamcinol 9-19 S pirit one) one) 00:00: - [facility] Nar[place] Naropin 0 No 1mg Common (Ropivacain (Ropivacain 9-19 S pirit e HCl) e HCl) 00:00: - [facility] Hyalgan 20 Hyalgan 20 2021-0 No 20mg C ommon mg mg 05-25 Spirit 00:00: - [facility] [place] Kenalog 0 No 40mg Common (Triamcinol (Triamcinol 9-19 S pirit one) one) 00:00: - [facility] Nar[place] Naropin 0 No 1mg Common (Ropivacain (Ropivacain 9-19 S pirit e HCl) e HCl) 00:00: - [facility] Hyalgan 20 Hyalgan 20 2021-0 No 20mg C ommon mg mg 05-25 Spirit 00:00: - [facility] [place] Kenalog 0 No 40mg Common (Triamcinol (Triamcinol 9-19 S pirit one) one) 00:00: - [facility] Nar[place] Naropin 0 No 1mg Common (Ropivacain (Ropivacain 9-19 S pirit e HCl) e HCl) 00:00: - [facility] Hyalgan 20 Hyalgan 20 2021-0 No 20mg C ommon mg mg 05-25 Spirit 00:00: - [facility] [place] Kenalog 0 No 40mg Common (Triamcinol (Triamcinol 9-19 S pirit one) one) 00:00: - [facility] Nar[place] Naropin 2021-0 No 1mg Common (Ropivacain (Ropivacain 9-19 S pirit e HCl) e HCl) 00:00: - [facility] Hyalgan 20 Hyalgan 20 2021-0 No 20mg C ommon mg mg 05-25 Spirit 00:00: - [facility] [place] Kenalog 2021-0 No 40mg Common (Triamcinol (Triamcinol 9-19 S pirit one) one) 00:00: - [facility] Nar[place] Naropin 2021-0 No 1mg Common (Ropivacain (Ropivacain 9-19 S pirit e HCl) e HCl) 00:00: - [facility] Hyal[place] 20 Hyalgan 20 2021-0 No 20mg C ommon mg mg 05-25 Spirit 00:00: - [facility] [place] Kenalog 0 No 40mg Common (Triamcinol (Triamcinol 9-19 S pirit one) one) 00:00: - [facility] Nar[place] Naropin 2021-0 No 1mg Common (Ropivacain (Ropivacain 9-19 S pirit e HCl) e HCl) 00:00: - [facility] Hyalgan 20 Hyalgan 20 2021-0 No 20mg C ommon mg mg 05-25 Spirit 00:00: - [facility] Ken[place] Kenalog 0 No 40mg Common (Triamcinol (Triamcinol 9-19 S pirit one) one) 00:00: - [facility] Nar[place] Naropin 2021-0 No 1mg Common (Ropivacain (Ropivacain 9-19 S pirit e HCl) e HCl) 00:00: - [facility] [place] Kenalog 2021-0 No 40mg Common (Triamcinol (Triamcinol 9-19 S pirit one) one) 00:00: - [facility] Nar[place] Naropin 2021-0 No 1mg Common (Ropivacain (Ropivacain 9-19 S pirit e HCl) e HCl) 00:00: - [facility] Hyalgan 20 Hyalgan 20 2021-0 No 20mg C ommon mg mg 05-25 [facility] 00:00: - [facility] Hyal[place] 20 Hyalgan 20 2021-0 No 20mg C ommon mg mg 05-25 [facility] 00:00: - [facility] [place] Kenalog 0 No 40mg Common (Triamcinol (Triamcinol 05-25 S pirit one) one) 00:00: - [facility] Nar[place] Naropin 0 No 1mg Common (Ropivacain (Ropivacain - S pirit e HCl) e HCl) 00:00: - [facility] Hyalgan 20 Hyalgan 20 0 No 20mg C ommon mg mg 05-25 Spirit 00:00: - [facility] metoprolol 2021-0 Yes 50mg QD Take 1 [...] 50 mg 24 hr daily. tablet valsartan-h 2021-0 Yes 1{tbl} QD Take [...] ) 160-12.5 mg per tablet Sulfamethox Sulfamethox 2021- No 1{table BID Sulfametho azole-Trime azole-Trime 03-13 07-18 t} xazole-Tri thoprim thoprim 00:00: 00:00 methoprim 800-160 MG 800-160 MG 00 :00 800-160 MG Nitrofurant Nitrofurant 2021- No BID Nitrofuran oin Monohyd oin Monohyd 630 07 toin Macro 100 Macro 100 00:00: 00:00 Monohyd MG MG 00 :00 Macro 100 MG Kenal[place] Kenalog No 40mg Common (Triamcinol (Triamcinol 6-06 S pirit one) one) 00:00: - [facility] Bupivicaine Bupivicaine 2021-0 No 2.5mg Common [place] 6-06 [facility] 00:00: - [facility] [place] Kenalog 2021-0 No 40mg Common (Triamcinol (Triamcinol 6-06 S pirit one) one) 00:00: - [facility] Bupivicaine Bupivicaine 2021-0 No 2.5mg Common [place] 6-06 [facility] 00:00: - [facility] [place] Kenalog 2021-0 No 40mg Common (Triamcinol (Triamcinol 6-06 S pirit one) one) 00:00: - [facility] Bupivicaine Bupivicaine 2021-0 No 2.5mg Common [place] 6-06 [facility] 00:00: - [facility] Bupivicaine Bupivicaine 2021-0 No 2.5mg Common [place] 6-06 [facility] 00:00: - [facility] [place] Kenalog 2021-0 No 40mg Common (Triamcinol (Triamcinol 6-06 S pirit one) one) 00:00: - [facility] [place] Kenalog 2021-0 No 40mg Common (Triamcinol (Triamcinol 6-06 S pirit one) one) 00:00: - [facility] Bupivicaine Bupivicaine 2-0 No 2.5mg Common [place] 6-06 [facility] 00:00: - [facility] Bupivicaine Bupivicaine 2021-0 No 2.5mg Common [place] 6-06 [facility] 00:00: - [facility] [place] Kenalog 2021-0 No 40mg Common (Triamcinol (Triamcinol 6-06 S pirit one) one) 00:00: - [facility] [place] Kenalog 2021-0 No 40mg Common (Triamcinol (Triamcinol 6-06 S pirit one) one) 00:00: - [facility] Bupivicaine Bupivicaine 2-0 No 2.5mg Common [place] 6-06 [facility] 00:00: - [facility] Bupivicaine Bupivicaine 2-0 No 2.5mg Common [place] 6-06 [facility] 00:00: - [facility] [place] Kenalog 2021-0 No 40mg Common (Triamcinol (Triamcinol 6-06 S pirit one) one) 00:00: - [facility] [place] Kenalog 2021-0 No 40mg Common (Triamcinol (Triamcinol 6-06 S pirit one) one) 00:00: - [facility] Bupivicaine Bupivicaine 2-0 No 2.5mg Common [place] 6-06 [facility] 00:00: - [facility] Bupivicaine Bupivicaine 2-0 No 2.5mg Common [place] 6-06 [facility] 00:00: - [facility] [place] Kenalog 2-0 No 40mg Common (Triamcinol (Triamcinol 6-06 S pirit one) one) 00:00: - [facility] [place] Kenalog 2-0 No 40mg Common (Triamcinol (Triamcinol 6-06 S pirit one) one) 00:00: - [facility] Bupivicaine Bupivicaine 2-0 No 2.5mg Common [place] 6-06 [facility] 00:00: - [facility] Bupivicaine Bupivicaine 2-0 No 2.5mg Common [place] 6-06 [facility] 00:00: - [facility] [place] Kenalog 2021-0 No 40mg Common (Triamcinol (Triamcinol 6-06 S pirit one) one) 00:00: - [facility] [place] Kenalog 2021-0 No 40mg Common (Triamcinol (Triamcinol 6-06 S pirit one) one) 00:00: - [facility] Bupivicaine Bupivicaine 2-0 No 2.5mg Common [place] 6-06 [facility] 00:00: - [facility] Bupivicaine Bupivicaine 2-0 No 2.5mg Common [place] 6-06 [facility] 00:00: - [facility] [place] Kenalog 2021-0 No 40mg Common (Triamcinol (Triamcinol 6-06 S pirit one) one) 00:00: - [facility] [place] Kenalog 2021-0 No 40mg Common (Triamcinol (Triamcinol 6-06 S pirit one) one) 00:00: - [facility] Bupivicaine Bupivicaine 2-0 No 2.5mg Common [place] 6-06 [facility] 00:00: - [facility] Bupivicaine Bupivicaine 2-0 No 2.5mg Common [place] 6-06 [facility] 00:00: - [facility] Ken[place] Kenalog 2-0 No 40mg Common (Triamcinol (Triamcinol 6-06 S pirit one) one) 00:00: - [facility] [place] Kenalog 2-0 No 40mg Common (Triamcinol (Triamcinol 6-06 S pirit one) one) 00:00: - [facility] Bupivicaine Bupivicaine 2-0 No 2.5mg Common [place] 6-06 [facility] 00:00: - [facility] Bupivicaine Bupivicaine 2-0 No 2.5mg Common [place] 6-06 [facility] 00:00: - [facility] Ken[place] Kenalog 2-0 No 40mg Common (Triamcinol (Triamcinol 6-06 S pirit one) one) 00:00: - [facility] [place] Kenalog 2021-0 No 40mg Common (Triamcinol (Triamcinol 6-06 S pirit one) one) 00:00: - [facility] Bupivicaine Bupivicaine 2-0 No 2.5mg Common [place] 6-06 [facility] 00:00: - [facility] Bupivicaine Bupivicaine 2-0 No 2.5mg Common [place] 6-06 [facility] 00:00: - [facility] [place] Kenalog 2-0 No 40mg Common (Triamcinol (Triamcinol 6-06 S pirit one) one) 00:00: - [facility] [place] Kenalog 2-0 No 40mg Common (Triamcinol (Triamcinol 6-06 S pirit one) one) 00:00: - [facility] Bupivicaine Bupivicaine 2-0 No 2.5mg Common [place] 6-06 [facility] 00:00: - [facility] [place] Kenalog 2-0 No 40mg Common (Triamcinol (Triamcinol 6-06 S pirit one) one) 00:00: - [facility] Bupivicaine Bupivicaine 2-0 No 2.5mg Common [place] 6-06 [facility] 00:00: - [facility] [place] Kenalog 2-0 No 40mg Common (Triamcinol (Triamcinol 6-06 S pirit one) one) 00:00: - [facility] [place] Kenalog 2-0 No 40mg Common (Triamcinol (Triamcinol 6-06 S pirit one) one) 00:00: - [facility] Bupivicaine Bupivicaine 2-0 No 2.5mg Common [place] 6- [facility] 00:00: - [facility] [place] Kenalog 2-0 No 40mg Common (Triamcinol (Triamcinol 6-06 S pirit one) one) 00:00: - [facility] Bupivicaine Bupivicaine 2-0 No 2.5mg Common [place] 6 [facility] 00:00: - [facility] Bupivicaine Bupivicaine 2-0 No 2.5mg Common [place] 6- [facility] 00:00: - [facility] Bupivicaine Bupivicaine 2-0 No 2.5mg Common [place] 6 [facility] 00:00: - [facility] [place] Kenalog 2-0 No 40mg Common (Triamcinol (Triamcinol 6-06 S pirit one) one) 00:00: - [facility] [place] Kenalog 2-0 No 40mg Common (Triamcinol (Triamcinol 6-06 S pirit one) one) 00:00: - [facility] Bupivicaine Bupivicaine 2-0 No 2.5mg Common [place] 02-09 [facility] 00:00: - [facility] Bupivicaine Bupivicaine 2-0 No 2.5mg Common [place] 02-09 [facility] 00:00: - [facility] [place] Kenalog 2-0 No 40mg Common (Triamcinol (Triamcinol 6-06 S pirit one) one) 00:00: - [facility] Bupivicaine Bupivicaine 2-0 No 2.5mg Common [place] 6 [facility] 00:00: - [facility] Bupivicaine Bupivicaine 2-0 No 2.5mg Common [place] 6- [facility] 00:00: - [facility] [place] Kenalog 2-0 No 40mg Common (Triamcinol (Triamcinol 6-06 S pirit one) one) 00:00: - [facility] [place] Kenalog 2021-0 No 40mg Common (Triamcinol (Triamcinol 6-06 S pirit one) one) 00:00: - [facility] Bupivicaine Bupivicaine 2-0 No 2.5mg Common [place] 6-06 [facility] 00:00: - [facility] Bupivicaine Bupivicaine 2021-0 No 2.5mg Common [place] 6-06 [facility] 00:00: - [facility] [place] Kenalog 2021-0 No 40mg Common (Triamcinol (Triamcinol 6-06 S pirit one) one) 00:00: - [facility] [place] Kenalog 2021-0 No 40mg Common (Triamcinol (Triamcinol 6-06 S pirit one) one) 00:00: - [facility] Bupivicaine Bupivicaine 2021-0 No 2.5mg Common [place] 6-06 [facility] 00:00: - [facility] Bupivicaine Bupivicaine 2-0 No 2.5mg Common [place] 6-06 [facility] 00:00: - [facility] [place] Kenalog 2021-0 No 40mg Common (Triamcinol (Triamcinol 6-06 S pirit one) one) 00:00: - [facility] [place] Kenalog 2021-0 No 40mg Common (Triamcinol (Triamcinol 6-06 S pirit one) one) 00:00: - [facility] Bupivicaine Bupivicaine 2-0 No 2.5mg Common [place] 6-06 [facility] 00:00: - [facility] Bupivicaine Bupivicaine 2-0 No 2.5mg Common [place] 6-06 [facility] 00:00: - [facility] [place] Kenalog 2-0 No 40mg Common (Triamcinol (Triamcinol 6-06 S pirit one) one) 00:00: - [facility] [place] Kenalog 2021-0 No 40mg Common (Triamcinol (Triamcinol 6-06 S pirit one) one) 00:00: - [facility] Bupivicaine Bupivicaine 2021-0 No 2.5mg Common [place] 6- [facility] 00:00: - [facility] Bupivicaine Bupivicaine 2021-0 No 2.5mg Common [place] 6- [facility] 00:00: - [facility] 00 [facility] Kenalog Kenalog 2021-0 No 40mg Common (Triamcinol (Triamcinol 6-06 S pirit one) one) 00:00: - [facility] 00 [facility] Kenalog Kenalog 2021-0 No 40mg Common (Triamcinol (Triamcinol 6-06 S pirit one) one) 00:00: - [facility] 00 [facility] Bupivicaine Bupivicaine 2021-0 No 2.5mg Common [place] 6- Spirit 00:00: - [facility] 00 [facility] Bupivicaine Bupivicaine 2021-0 No 2.5mg Common [place] 6- Spirit 00:00: - [facility] 00 [facility] Kenalog Kenalog 2021-0 No 40mg Common (Triamcinol (Triamcinol 6-06 S pirit one) one) 00:00: - [facility]I 00 [facility] Kenalog Kenalog 2021-0 No 40mg Common (Triamcinol (Triamcinol 6-06 S pirit one) one) 00:00: - [facility]I 00 [facility] Bupivicaine Bupivicaine 2021-0 No 2.5mg Common [place] 6- Spirit 00:00: - [facility] 00 [facility] Bupivicaine Bupivicaine 2-0 No 2.5mg Common [place] 6-06 Spirit 00:00: - [facility]I 00 [facility] Kenalog Kenalog 2021-0 No 40mg Common (Triamcinol (Triamcinol 6-06 S pirit one) one) 00:00: - [facility]I 00 [facility] Kenalog Kenalog 2021-0 No 40mg Common (Triamcinol (Triamcinol 6-06 S pirit one) one) 00:00: - [facility]I 00 [facility] Bupivicaine Bupivicaine 2-0 No 2.5mg Common [place] 6-06 Spirit 00:00: - [facility] 00 [facility] Bupivicaine Bupivicaine 2-0 No 2.5mg Common [place] 6-06 Spirit 00:00: - [facility] 00 [facility] Kenalog Kenalog 2021-0 No 40mg Common (Triamcinol (Triamcinol 6-06 S pirit one) one) 00:00: - [facility]I 00 [facility] Kenalog Kenalog 2021-0 No 40mg Common (Triamcinol (Triamcinol 6-06 S pirit one) one) 00:00: - [facility] 00 [facility] Bupivicaine Bupivicaine 2-0 No 2.5mg Common [place] 6-06 Spirit 00:00: - [facility] 00 [facility] Bupivicaine Bupivicaine 2021-0 No 2.5mg Common [place] 6-06 Spirit 00:00: - [facility] 00 [facility] Kenalog Kenalog 2021-0 No 40mg Common (Triamcinol (Triamcinol 6-06 S pirit one) one) 00:00: - [facility] 00 [facility] Kenalog Kenalog 2021-0 No 40mg Common (Triamcinol (Triamcinol 6-06 S pirit one) one) 00:00: - [facility] 00 [facility] Bupivicaine Bupivicaine 2-0 No 2.5mg [facility] [place] [facility] 00:00: - [facility] 00 [facility] Bupivicaine Bupivicaine 2-0 No 2.5mg [facility] [place] [facility] 00:00: - [facility] 00 [facility] Kenalog Kenalog 2-0 No 40mg Common (Triamcinol (Triamcinol 6-06 S pirit one) one) 00:00: - [facility] 00 [facility] Kenalog Kenalog 2-0 No 40mg Common (Triamcinol (Triamcinol 6-06 S pirit one) one) 00:00: - [facility] 00 [facility] Kenalog Kenalog 2021-0 No 40mg Common (Triamcinol (Triamcinol 6-06 S pirit one) one) 00:00: - [facility] 00 [facility] Bupivicaine Bupivicaine 2021-0 No 2.5mg [facility] [place] [facility] Spirit 00:00: - [facility] 00 [facility] Bupivicaine Bupivicaine 2021-0 No 2.5mg [facility] [place] [facility] Spirit 00:00: - [facility] 00 [facility] Kenalog Kenalog 2021-0 No 40mg Common (Triamcinol (Triamcinol 6-06 S pirit one) one) 00:00: - [facility] 00 [facility] Kenalog Kenalog 2021-0 No 40mg Common (Triamcinol (Triamcinol 6-06 S pirit one) one) 00:00: - [facility] 00 [facility] Bupivicaine Bupivicaine 2021-0 No 2.5mg [facility] [place] [facility] Spirit 00:00: - [facility] 00 [facility] Bupivicaine Bupivicaine 2021-0 No 2.5mg [facility] [place] [facility] Spirit 00:00: - [facility] 00 [facility] Kenalog Kenalog 2021-0 No 40mg Common (Triamcinol (Triamcinol 6-06 S pirit one) one) 00:00: - [facility] 00 [facility] Kenalog Kenalog 2021-0 No 40mg Common (Triamcinol (Triamcinol 6-06 S pirit one) one) 00:00: - [facility] 00 [facility] Bupivicaine Bupivicaine 2021-0 No 2.5mg [facility] [place] [facility] Spirit 00:00: - [facility] 00 [facility] Bupivicaine Bupivicaine 2021-0 No 2.5mg [facility] [place] [facility] 00:00: - [facility] 00 [facility] Kenalog Kenalog 2021-0 No 40mg Common (Triamcinol (Triamcinol 6-06 S pirit one) one) 00:00: - [facility] 00 [facility] Kenalog Kenalog 2021-0 No 40mg Common (Triamcinol (Triamcinol 6-06 S pirit one) one) 00:00: - [facility] 00 [facility] Bupivicaine Bupivicaine 2-0 No 2.5mg [facility] [place] [facility] 00:00: - [facility] 00 [facility] Bupivicaine Bupivicaine 2021-0 No 2.5mg [facility] [place] [facility] 00:00: - [facility] 00 [facility] Kenalog Kenalog 2021-0 No 40mg Common (Triamcinol (Triamcinol 6-06 S pirit one) one) 00:00: - [facility] 00 [facility] Kenalog Kenalog 2021-0 No 40mg Common (Triamcinol (Triamcinol 6-06 S pirit one) one) 00:00: - [facility] 00 [facility] Bupivicaine Bupivicaine 2-0 No 2.5mg [facility] [place] [facility] 00:00: - [facility] 00 [facility] Bupivicaine Bupivicaine 2-0 No 2.5mg [facility] [place] [facility] 00:00: - [facility] 00 [facility] Kenalog Kenalog 2021-0 No 40mg Common (Triamcinol (Triamcinol 6-06 S pirit one) one) 00:00: - [facility] 00 [facility] Kenalog Kenalog 2021-0 No 40mg Common (Triamcinol (Triamcinol 6-06 S pirit one) one) 00:00: - [facility] 00 [facility] Bupivicaine Bupivicaine 2-0 No 2.5mg [facility] [place] [facility] 00:00: - [facility] 00 [facility] Bupivicaine Bupivicaine 2-0 No 2.5mg [facility] [place] [facility] 00:00: - [facility] 00 [facility] Kenalog Kenalog 2-0 No 40mg Common (Triamcinol (Triamcinol 6-06 S pirit one) one) 00:00: - [facility] 00 [facility] Kenalog Kenalog 2-0 No 40mg Common (Triamcinol (Triamcinol 6-06 S pirit one) one) 00:00: - [facility] 00 [facility] Bupivicaine Bupivicaine 2021-0 No 2.5mg [facility] [place] [facility] Spirit 00:00: - [facility] 00 [facility] Bupivicaine Bupivicaine 2021-0 No 2.5mg [facility] [place] [facility] 00:00: - [facility] 00 [facility] Kenalog Kenalog 2021-0 No 40mg Common (Triamcinol (Triamcinol 6-06 S pirit one) one) 00:00: - [facility] 00 [facility] Kenalog Kenalog 2021-0 No 40mg Common (Triamcinol (Triamcinol 6-06 S pirit one) one) 00:00: - [facility] 00 [facility] Bupivicaine Bupivicaine 2021-0 No 2.5mg [facility] [place] [facility] 00:00: - [facility] 00 [facility] Bupivicaine Bupivicaine 2021-0 No 2.5mg [facility] [place] [facility] 00:00: - [facility] 00 [facility] Kenalog Kenalog 2021-0 No 40mg Common (Triamcinol (Triamcinol 6-06 S pirit one) one) 00:00: - [facility] 00 [facility] Kenalog Kenalog 2021-0 No 40mg Common (Triamcinol (Triamcinol 6-06 S pirit one) one) 00:00: - [facility] 00 [facility] Kenalog Kenalog 2021-0 No 40mg Common (Triamcinol (Triamcinol 6-06 S pirit one) one) 00:00: - [facility] 00 [facility] Bupivicaine Bupivicaine 2021-0 No 2.5mg [facility] [place] [facility] 00:00: - [facility] 00 [facility] Bupivicaine Bupivicaine 2021-0 No 2.5mg [facility] [place] [facility] 00:00: - [facility] 00 [facility] Kenalog Kenalog 2021-0 No 40mg Common (Triamcinol (Triamcinol 3-09 S pirit one) one) 00:00: - [facility] 00 [facility] Kenalog Kenalog 2021-0 No 40mg Common (Triamcinol (Triamcinol 3-09 S pirit one) one) 00:00: - [facility] 00 [facility] Kenalog Kenalog 2021-0 No 40mg Common (Triamcinol (Triamcinol 3-09 S pirit one) one) 00:00: - [facility] 00 [facility] Kenalog Kenalog 2021-0 No 40mg Common (Triamcinol (Triamcinol 3-09 S pirit one) one) 00:00: - [facility] 00 [facility] Kenalog Kenalog 2021-0 No 40mg Common (Triamcinol (Triamcinol 3-09 S pirit one) one) 00:00: - [facility] 00 [facility] Kenalog Kenalog 2021-0 No 40mg Common (Triamcinol (Triamcinol 3-09 S pirit one) one) 00:00: - [facility] 00 [facility] Kenalog Kenalog 2021-0 No 40mg Common (Triamcinol (Triamcinol 3-09 S pirit one) one) 00:00: - [facility] 00 [facility] Kenalog Kenalog 2021-0 No 40mg Common (Triamcinol (Triamcinol 3-09 S pirit one) one) 00:00: - [facility] 00 [facility] Kenalog Kenalog 2021-0 No 40mg Common (Triamcinol (Triamcinol 3-09 S pirit one) one) 00:00: - [facility] 00 [facility] Kenalog Kenalog 2021-0 No 40mg Common (Triamcinol (Triamcinol 3-09 S pirit one) one) 00:00: - [facility] 00 [facility] Kenalog Kenalog 2021-0 No 40mg Common (Triamcinol (Triamcinol 3-09 S pirit one) one) 00:00: - [facility] 00 [facility] Kenalog Kenalog 2021-0 No 40mg Common (Triamcinol (Triamcinol 3-09 S pirit one) one) 00:00: - [facility] 00 [facility] Kenalog Kenalog 2021-0 No 40mg Common (Triamcinol (Triamcinol 3-09 S pirit one) one) 00:00: - [facility] 00 [facility] Kenalog Kenalog 2021-0 No 40mg Common (Triamcinol (Triamcinol 3-09 S pirit one) one) 00:00: - [facility] 00 [facility] Kenalog Kenalog 2021-0 No 40mg Common (Triamcinol (Triamcinol 3-09 S pirit one) one) 00:00: - [facility] 00 [facility] Kenalog Kenalog 2021-0 No 40mg Common (Triamcinol (Triamcinol 3-09 S pirit one) one) 00:00: - [facility] 00 [facility] Kenalog Kenalog 2021-0 No 40mg Common (Triamcinol (Triamcinol 3-09 S pirit one) one) 00:00: - [facility] 00 [facility] Kenalog Kenalog 2021-0 No 40mg Common (Triamcinol (Triamcinol 3-09 S pirit one) one) 00:00: - [facility] 00 [facility] Kenalog Kenalog 2021-0 No 40mg Common (Triamcinol (Triamcinol 3-09 S pirit one) one) 00:00: - [facility] 00 [facility] Kenalog Kenalog 2021-0 No 40mg Common (Triamcinol (Triamcinol 3-09 S pirit one) one) 00:00: - [facility] 00 [facility] Kenalog Kenalog 2021-0 No 40mg Common (Triamcinol (Triamcinol 3-09 S pirit one) one) 00:00: - [facility] 00 [facility] Kenalog Kenalog 2021-0 No 40mg Common (Triamcinol (Triamcinol 3-09 S pirit one) one) 00:00: - [facility] 00 [facility] Kenalog Kenalog 2021-0 No 40mg Common (Triamcinol (Triamcinol 3-09 S pirit one) one) 00:00: - [facility] 00 [facility] Kenalog Kenalog 2021-0 No 40mg Common (Triamcinol (Triamcinol 3-09 S pirit one) one) 00:00: - [facility] 00 [facility] Kenalog Kenalog 0 No 40mg Common (Triamcinol (Triamcinol 3-09 S pirit one) one) 00:00: - [facility] 00 [facility] Kenalog Kenalog 2021-0 No 40mg Common (Triamcinol (Triamcinol 3-09 S pirit one) one) 00:00: - [facility] 00 [facility] Kenalog Kenalog 2021-0 No 40mg Common (Triamcinol (Triamcinol 3-09 S pirit one) one) 00:00: - [facility] 00 [facility] Kenalog Kenalog 0 No 40mg Common (Triamcinol (Triamcinol 3-09 S pirit one) one) 00:00: - [facility] 00 [facility] Kenalog Kenalog 0 No 40mg Common (Triamcinol (Triamcinol 3-09 S pirit one) one) 00:00: - [facility] 00 [facility] Kenalog Kenalog 2021-0 No 40mg Common (Triamcinol (Triamcinol 3-09 S pirit one) one) 00:00: - [facility] 00 [facility] Kenalog Kenalog 2021-0 No 40mg Common (Triamcinol (Triamcinol 3-09 S pirit one) one) 00:00: - [facility] 00 [facility] Kenalog Kenalog 2021-0 No 40mg Common (Triamcinol (Triamcinol 3-09 S pirit one) one) 00:00: - [facility] 00 [facility] Kenalog Kenalog 2021-0 No 40mg Common (Triamcinol (Triamcinol 3-09 S pirit one) one) 00:00: - [facility] 00 [facility] Kenalog Kenalog 2021-0 No 40mg Common (Triamcinol (Triamcinol 3-09 S pirit one) one) 00:00: - [facility] 00 [facility] Kenalog Kenalog 2021-0 No 40mg Common (Triamcinol (Triamcinol 3-09 S pirit one) one) 00:00: - [facility] 00 [facility] Kenalog Kenalog 2021-0 No 40mg Common (Triamcinol (Triamcinol 3-09 S pirit one) one) 00:00: - [facility] 00 [facility] Wai Carreno 0 No 40mg Common (Triamcinol (Triamcinol 3-09 S pirit one) one) 00:00: - [facility] 00 [facility] Wai Carreno 0 No 40mg Common (Triamcinol (Triamcinol 3-09 S pirit one) one) 00:00: - [facility] 00 [facility] 0 No 40mg Common (Triamcinol (Triamcinol 3-09 S pirit one) one) 00:00: - [facility] 00 [facility] No 40[facility] Common (Triamcinol (Triamcinol 3-09 S pirit one) one) 00:00: - [facility] 00 [facility] No 40mg Common (Triamcinol (Triamcinol 3-09 S pirit one) one) 00:00: - [facility] 00 [facility] 0 No 40mg Common (Triamcinol (Triamcinol 3-09 S pirit one) one) 00:00: - [facility] 00 [facility] No 40[facility] Common (Triamcinol (Triamcinol 3-09 S pirit one) one) 00:00: - [facility] 00 [facility] Turmeric Turmeric No Turmeric Chondroitin Chondroitin No [...] Vitamin C Vitamin C No Vitamin C [place] 3 [place] 3 No [place] 3 Chondroitin Chondroitin No Chondroiti Sulfate Sulfate [...] - n - t} in - Vitamin D3 Vitamin D3 No Vitamin D3 Turmeric Turmeric No Turmeric Glucosamine Glucosamine No Glucosamin Sulfate Sulfate e Sulfate Fish Oil Fish Oil No Fish Oil Valsartan Valsartan No Valsartan Vitamin C Vitamin C No Vitamin C Zinc Zinc No Zinc Metoprolol Metoprolol No 1{table QD Metoprolol Succinate Succinate t} Succinate ER 50 MG ER 50 MG ER 50 MG [place] 3 [place] 3 No [place] 3 Chondroitin Chondroitin No Chondroiti Sulfate Sulfate n Sulfate Multivitami Multivitami No 1{table QD Multivitam n - n - t} in - Diovan HCT Diovan HCT No 1{table QD Diovan HCT 160-12.5 MG 160-12.5 MG t} 160-12.5 MG VESIcare VESIcare No VESIcare Amitriptyli Amitriptyli No 1{table QD Amitriptyl ne HCl 100 ne HCl 100 t_at_be ine HCl MG MG dtime} 100 MG Amoxicillin Amoxicillin No Amoxicilli n Glucosamine Glucosamine No Glucosamin Sulfate Sulfate e Sulfate Amitriptyli Amitriptyli No 1{table QD Amitriptyl ne HCl 100 ne HCl 100 t_at_be ine HCl MG MG dtime} 100 MG [place] Boswellia No [place] Metoprolol Metoprolol No Metoprolol Succinate Succinate Succinate VESIcare VESIcare No VESIcare Fish Oil Fish Oil No Fish Oil Vitamin D3 Vitamin D3 No Vitamin D3 Turmeric Turmeric No Turmeric Fish Oil Fish Oil No Fish Oil Valsartan Valsartan No Valsartan Vitamin C Vitamin C No Vitamin C Zinc Zinc No Zinc Metoprolol Metoprolol No 1{table QD Metoprolol Succinate Succinate t} Succinate ER 50 MG ER 50 MG ER 50 MG Zinc Zinc No Zinc [place] 3 [place] 3 No [place] 3 Chondroitin Chondroitin No Chondroiti Sulfate Sulfate [...] Metoprolol Metoprolol No Metoprolol Succinate Succinate Succinate Amoxicillin Amoxicillin No Amoxicilli n [place] 3 [place] 3 No [place] 3 [place] 3 [place] 3 No [place] 3 Metoprolol Metoprolol No Metoprolol Succinate Succinate Succinate [place] No [place] Vitamin D3 Vitamin D3 No Vitamin D3 Zinc Zinc No Zinc Amoxicillin Amoxicillin No Amoxicilli n VESIcare VESIcare No VESIcare Glucosamine Glucosamine No Glucosamin Sulfate Sulfate e Sulfate Chondroitin Chondroitin No Chondroiti Sulfate Sulfate n Sulfate Metoprolol Metoprolol No 1{table QD Metoprolol Succinate Succinate t} Succinate ER 50 MG ER 50 MG ER 50 MG Valsartan Valsartan No Valsartan Fish Oil Fish Oil No Fish Oil Metoprolol Metoprolol No 1{table QD Metoprolol Succinate Succinate t} Succinate ER 50 MG ER 50 MG ER 50 MG Diovan HCT Diovan HCT No 1{table QD Diovan HCT 160-12.5 MG 160-12.5 MG t} 160-12.5 MG Vitamin C Vitamin C No Vitamin C Metoprolol Metoprolol No Metoprolol Succinate Succinate Succinate Amitriptyli Amitriptyli No 1{table QD Amitriptyl ne HCl 100 ne HCl 100 t_at_be ine HCl MG MG dtime} 100 MG Multivitami Multivitami No 1{table QD Multivitam n - n - t} in - Turmeric Turmeric No Turmeric Turmeric Turmeric No Turmeric Diovan HCT Diovan HCT No 1{table QD Diovan HCT 160-12.5 MG 160-12.5 MG t} 160-12.5 MG Vitamin C Vitamin C No Vitamin C Amitriptyli Amitriptyli No 1{table QD Amitriptyl ne HCl 100 ne HCl 100 t_at_be ine HCl MG MG dtime} 100 MG [place] 3 [place] 3 No [place] 3 Glucosamine Glucosamine No Glucosamin Sulfate Sulfate e Sulfate [place] Boswellia No [place] VESIcare VESIcare No VESIcare Metoprolol Metoprolol No 1{table QD Metoprolol Succinate Succinate t} Succinate ER 50 MG ER 50 MG ER 50 MG Valsartan Valsartan No Valsartan Amoxicillin Amoxicillin No Amoxicilli n Zinc Zinc No Zinc Multivitami Multivitami No 1{table QD Multivitam n - n - t} in - Metoprolol Metoprolol No Metoprolol Succinate Succinate Succinate Chondroitin Chondroitin No Chondroiti Sulfate Sulfate n Sulfate Fish Oil Fish Oil No Fish [...] Fish Oil Amoxicillin Amoxicillin No Amoxicilli n [place] 3 [place] 3 No [place] 3 Glucosamine Glucosamine No Glucosamin Sulfate Sulfate [...] Sulfate n Sulfate Turmeric Turmeric No Turmeric [place] 3 [place] 3 No [place] 3 Metoprolol Metoprolol No 1{table QD Metoprolol [...] Sulfate n Sulfate Turmeric Turmeric No Turmeric [place] 3 [place] 3 No [place] 3 Metoprolol Metoprolol No 1{table QD Metoprolol [...] Sulfate n Sulfate Turmeric Turmeric No Turmeric [place] 3 [place] 3 No [place] 3 Metoprolol Metoprolol No 1{table QD Metoprolol [...] t} 160-12.5 MG Zinc Zinc No Zinc [place] 3 [place] 3 No [place] 3 Fish Oil Fish Oil No Fish [...] t} 160-12.5 MG Zinc Zinc No Zinc [place] 3 [place] 3 No [place] 3 Fish Oil Fish Oil No Fish [...] t} 160-12.5 MG Zinc Zinc No Zinc [place] 3 [place] 3 No [place] 3 Fish Oil Fish Oil No Fish [...] t} 160-12.5 MG Zinc Zinc No Zinc [place] 3 [place] 3 No [place] 3 Fish Oil Fish Oil No Fish [...] Vitamin D3 Vitamin D3 No Vitamin D3 [place] 3 [place] 3 No [place] 3 Metoprolol Metoprolol No 1{table QD Metoprolol [...] Vitamin D3 Vitamin D3 No Vitamin D3 [place] 3 [place] 3 No [place] 3 Metoprolol Metoprolol No 1{table QD Metoprolol [...] Vitamin D3 Vitamin D3 No Vitamin D3 [place] 3 [place] 3 No [place] 3 Metoprolol Metoprolol No 1{table QD Metoprolol Succinate Succinate t} Succinate ER 50 MG ER 50 MG ER 50 MG Diovan HCT Diovan HCT No 1{table QD Diovan HCT 160-12.5 MG 160-12.5 MG t} 160-12.5 MG Chondroitin Chondroitin No Chondroiti Sulfate Sulfate n Sulfate Zinc Zinc No Zinc Turmeric Turmeric No Turmeric [place] 3 [place] 3 No [place] 3 Glucosamine Glucosamine No Glucosamin Sulfate Sulfate [...] ER 50 MG Valsartan Valsartan No Valsartan [place] 3 [place] 3 No [place] 3 Vitamin C Vitamin C No Vitamin [...] Metoprolol Metoprolol No Metoprolol Succinate Succinate Succinate [place] 3 [place] 3 No [place] 3 Fish Oil Fish Oil No Fish [...] Metoprolol Metoprolol No Metoprolol Succinate Succinate Succinate [place] 3 [place] 3 No [place] 3 Fish Oil Fish Oil No Fish [...] 160-12.5 MG 160-12.5 MG t} 160-12.5 MG [place] 3 [place] 3 No [place] 3 Metoprolol Metoprolol No Metoprolol Succinate Succinate Succinate [place] 3 [place] 3 No [place] 3 Metoprolol Metoprolol No Metoprolol Succinate Succinate [...] n - n - t} in - [place] 3 [place] 3 No [place] 3 Metoprolol Metoprolol No Metoprolol Succinate Succinate [...] MG ER 50 MG ER 50 MG [place] 3 [place] 3 No [place] 3 Metoprolol Metoprolol No Metoprolol Succinate Succinate [...] MG ER 50 MG ER 50 MG [place] 3 [place] 3 No [place] 3 Metoprolol Metoprolol No Metoprolol Succinate Succinate [...] MG ER 50 MG ER 50 MG [place] 3 [place] 3 No [place] 3 Metoprolol Metoprolol No Metoprolol Succinate Succinate [...] No Zinc Amoxicillin Amoxicillin No Amoxicilli n [place] 3 [place] 3 No [place] 3 Metoprolol Metoprolol No Metoprolol Succinate Succinate [...] No Zinc Amoxicillin Amoxicillin No Amoxicilli n [place] 3 [place] 3 No [place] 3 Metoprolol Metoprolol No Metoprolol Succinate Succinate [...] Fish Oil Amoxicillin Amoxicillin No Amoxicilli n [place] 3 [place] 3 No [place] 3 Glucosamine Glucosamine No Glucosamin Sulfate Sulfate [...] Fish Oil Amoxicillin Amoxicillin No Amoxicilli n [place] 3 [place] 3 No [place] 3 Glucosamine Glucosamine No Glucosamin Sulfate Sulfate [...] Fish Oil Amoxicillin Amoxicillin No Amoxicilli n [place] 3 [place] 3 No [place] 3 Glucosamine Glucosamine No Glucosamin Sulfate Sulfate [...] Fish Oil Amoxicillin Amoxicillin No Amoxicilli n [place] 3 [place] 3 No [place] 3 Glucosamine Glucosamine No Glucosamin Sulfate Sulfate [...] Fish Oil Amoxicillin Amoxicillin No Amoxicilli n [place] 3 [place] 3 No [place] 3 Glucosamine Glucosamine No Glucosamin Sulfate Sulfate [...] No Zinc Amoxicillin Amoxicillin No Amoxicilli n [place] 3 [place] 3 No [place] 3 Metoprolol Metoprolol No 1{table QD Metoprolol [...] Metoprolol Metoprolol No Metoprolol Succinate Succinate Succinate [place] 3 [place] 3 No [place] 3 Glucosamine Glucosamine No Glucosamin Sulfate Sulfate [...] Fish Oil Amoxicillin Amoxicillin No Amoxicilli n [place] 3 [place] 3 No [place] 3 Glucosamine Glucosamine No Glucosamin Sulfate Sulfate [...] Fish Oil Amoxicillin Amoxicillin No Amoxicilli n [place] 3 [place] 3 No [place] 3 Glucosamine Glucosamine No Glucosamin Sulfate Sulfate [...] MG ER 50 MG ER 50 MG [place] 3 [place] 3 No [place] 3 Chondroitin Chondroitin No Chondroiti Sulfate Sulfate [...] MG ER 50 MG ER 50 MG [place] 3 [place] 3 No [place] 3 Chondroitin Chondroitin No Chondroiti Sulfate Sulfate [...] MG ER 50 MG ER 50 MG [place] 3 [place] 3 No [place] 3 Chondroitin Chondroitin No Chondroiti Sulfate Sulfate [...] MG ER 50 MG ER 50 MG [place] 3 [place] 3 No [place] 3 Chondroitin Chondroitin No Chondroiti Sulfate Sulfate [...] MG ER 50 MG ER 50 MG [place] 3 [place] 3 No [place] 3 Immunizations Ordered Immunization Filled Immunization Date Status Commen ts Source Name Name Flucelvax - Flucelvax - 2021-09-05 [facility] - Flucelvax - 2021-09-05 [facility] multidose [facility]ial multidose vial 14:11:00 - [facility] Flucelvax - Flucelvax - 2021-09-05 Completed [facility] multidose vial multidose vial 14:11:00 - [facility] Flucelvax - Flucelvax - 2021-09-05 Completed [facility] multidose vial multidose vial 14:11:00 - [facility] Flucelvax - Flucelvax - 2021-09-05 Completed [facility] multidose vial multidose vial 14:11:00 - [facility] Flucelvax - Flucelvax - 2021-09-05 Completed [facility] multidose vial multidose vial 14:11:00 - [facility] Flucelvax - Flucelvax - 2021-09-05 Completed [facility] multidose vial multidose vial 14:11:00 - [facility] Flucelvax - Flucelvax - 2021-09-05 Completed [facility] multidose vial multidose vial 14:11:00 - [facility] Flucelvax - Flucelvax - 2021-09-05 Completed [facility] multidose vial multidose vial 14:11:00 [facility] Flucelvax - Flucelvax - 2021-09-05 Completed [facility] multidose vial multidose vial 14:11:00 - [facility] Flucelvax - Flucelvax - 2021-09-05 Completed [facility] multidose vial multidose vial 14:11:00 - [facility] Flucelvax - Flucelvax - 2021-09-05 Completed [facility] multidose vial multidose vial 14:11:00 - [facility] Flucelvax - Flucelvax - 2021-09-05 Completed [facility] multidose vial multidose vial 14:11:00 - [facility] Flucelvax - Flucelvax - 2021-09-05 Completed [facility] multidose vial multidose vial 14:11:00 - [facility] Flucelvax - Flucelvax - 2021-09-05 Completed [facility] multidose vial multidose vial 14:11:00 - [facility] Flucelvax - Flucelvax - 2021-09-05 Completed [facility] multidose vial multidose vial 14:11:00 - [facility] Flucelvax - Flucelvax - 2021-09-05 Completed [facility] multidose vial multidose vial 14:11:00 - [facility] Flucelvax - Flucelvax - 2021-09-05 Completed [facility] multidose vial multidose vial 14:11:00 - [facility] Flucelvax - Flucelvax - 2021-09-05 Completed [facility] multidose vial multidose vial 14:11:00 - [facility] Flucelvax - Flucelvax - 2021-09-05 Completed [facility] multidose vial multidose vial 14:11:00 - [facility] Flucelvax - Flucelvax - 2021-09-05 Completed [facility] multidose vial multidose vial 14:11:00 [facility] Flucelvax - Flucelvax - 2021-09-05 Completed [facility] multidose vial multidose vial 14:11:00 - [facility] Flucelvax - Flucelvax - 2021-09-05 Completed [facility] multidose vial multidose vial 14:11:00 - [facility] Flucelvax - Flucelvax - 2021-09-05 Completed [facility] multidose vial multidose vial 14:11:00 - [facility] Flucelvax - Flucelvax - 2021-09-05 Completed [facility] multidose vial multidose vial 14:11:00 - [facility] Flucelvax - Flucelvax - 2021-09-05 Completed [facility] multidose vial multidose vial 14:11:00 - [facility] Flucelvax - Flucelvax - 2021-09-05 Completed [facility] multidose vial multidose vial 14:11:00 - [facility] Flucelvax - Flucelvax - 2021-09-05 Completed [facility] multidose vial multidose vial 14:11:00 - [facility] Flucelvax - Flucelvax - 2021-09-05 Completed [facility] multidose vial multidose vial 14:11:00 - [facility] Flucelvax - Flucelvax - 2021-09-05 Completed [facility] multidose vial multidose vial 14:11:00 - [facility] Flucelvax - Flucelvax - 2021-09-05 Completed [facility] multidose vial multidose vial 14:11:00 - [facility] Flucelvax - Flucelvax - 2021-09-05 Completed [facility] multidose vial multidose vial 14:11:00 - [facility] Flucelvax - Flucelvax - 2021-09-05 Completed [facility] multidose vial multidose vial 14:11:00 - [facility] Flucelvax - Flucelvax - 2021-09-05 Completed [facility] multidose vial multidose vial 14:11:00 [facility] Flucelvax - Flucelvax - 2021-09-05 Completed [facility] multidose vial multidose vial 14:11:00 - [facility] Flucelvax - Flucelvax - 2021-09-05 Completed [facility] multidose vial multidose vial 14:11:00 - [facility] Flucelvax - Flucelvax - 2021-09-05 Completed [facility] multidose vial multidose vial 14:11:00 - [facility] Flucelvax - Flucelvax - 2021-09-05 Completed Common Spiri t multidose vial multidose vial 14:11:00 - [facility] Flucelvax - Flucelvax - 2021-09-05 Completed Common Spiri t multidose vial multidose vial 14:11:00 - [facility] Flucelvax - Flucelvax - 2021-09-05 Completed Common Spiri t multidose vial multidose vial 14:11:00 - [facility] Flucelvax - Flucelvax - 2021-09-05 Completed Common Spiri t multidose vial multidose vial 14:11:00 - [facility] Flucelvax - Flucelvax - 2021-09-05 Completed Common Spiri t multidose vial multidose vial 14:11:00 - [facility] Flucelvax - Flucelvax - 2021-09-05 Completed Common Spiri t multidose vial multidose vial 14:11:00 [facility] Vital Signs Vital Name Observation Time Observation Value Comments Source height 2022-09-10 13:15:00 61 [in_i] [facility] weight 2022-09-10 13:15:00 245.7 [lb_av] [facility] temperature 2022-09-10 13:15:00 98.2 [degF] [facility] bmi 2022-09-10 13:15:00 46.42 kg/m2 [facility] blood pressure 2022-09-10 13:15:00 131 mm[Hg] [facility] systolic [facility] blood pressure 2022-09-10 13:15:00 84 mm[Hg] [facility] - diastolic [facility] Systolic blood 2022-08-17 17:31:00 93 mm[Hg] [facility] pressure Medicine Diastolic blood 2022-08-17 17:31:00 66 mm[Hg] [facility] pressure Medicine Heart rate 2022-08-17 17:31:00 97 /min [facility] Body temperature 2022-08-17 17:31:00 36.78 Yasmeen [facility] Body height 2022-08-17 17:31:00 154.9 cm [facility] Body weight 2022-08-17 17:31:00 111.131 kg [facility] BMI 2022-08-17 17:31:00 46.29 kg/m2 [facility] WEIGHT 2022-08-07 07:15:00 110.9 kg HEIGHT 2022-08-07 07:15:00 152.4 cm HEIGHT 2022-07-21 14:21:00 154.9 cm WEIGHT 2022-07-21 14:21:00 108.863 kg WEIGHT 2022-08-07 07:15:00 110.9 kg HEIGHT 2022-08-07 07:15:00 152.4 cm HEIGHT 2022-07-21 14:21:00 154.9 cm WEIGHT 2022-07-21 14:21:00 108.863 kg WEIGHT 2022-08-07 07:15:00 110.9 kg HEIGHT 2022-08-07 07:15:00 152.4 cm HEIGHT 2022-07-21 14:21:00 154.9 cm WEIGHT 2022-07-21 14:21:00 108.863 kg height 2022-08-04 16:20:00 61 [in_i] [facility] weight 2022-08-04 16:20:00 240 [lb_av] [facility] temperature 2022-08-04 16:20:00 98 [degF] [facility] bmi 2022-08-04 16:20:00 45.34 kg/m2 [facility] blood pressure 2022-08-04 16:20:00 135 mm[Hg] [facility] blood pressure 2022-08-04 16:20:00 75 mm[Hg] [facility] Systolic blood 2022-06-10 19:57:00 101 mm[Hg] [facility] Medicine Diastolic blood 2022-06-10 19:57:00 69 mm[Hg] [facility] Medicine Heart rate 2022-06-10 19:57:00 93 /min [facility] Body temperature 2022-06-10 19:57:00 37.11 Yasmeen [facility] Body height 2022-06-10 19:57:00 154.9 cm [facility] Body weight 2022-06-10 19:57:00 105.235 kg [facility] BMI 2022-06-10 19:57:00 43.84 kg/m2 [facility] height 2022-06-09 13:15:00 61 [in_i] [facility] weight 2022-06-09 13:15:00 233.0 [lb_av] [facility] temperature 2022-06-09 13:15:00 97.2 [degF] [facility] bmi 2022-06-09 13:15:00 44.02 kg/m2 [facility] blood pressure 2022-06-09 13:15:00 132 mm[Hg] [facility] blood pressure 2022-06-09 13:15:00 87 mm[Hg] [facility] height 2022-06-01 14:00:00 61 [in_i] [facility] weight 2022-06-01 14:00:00 233.0 [lb_av] [facility] temperature 2022-06-01 14:00:00 97.6 [degF] [facility] bmi 2022-06-01 14:00:00 44.02 kg/m2 [facility] - [facility] blood pressure 2022-06-01 14:00:00 138 mm[Hg] [facility] blood pressure 2022-06-01 14:00:00 86 mm[Hg] [facility] height 2022-05-06 13:50:00 61 [in_i] [facility] weight 2022-05-06 13:50:00 228 [lb_av] [facility] temperature 2022-05-06 13:50:00 97.6 [degF] [facility] bmi 2022-05-06 13:50:00 43.08 kg/m2 [facility] oximetry 2022-05-06 13:50:00 93 % Common [facility] respiratory rate 2022-05-06 13:50:00 18 /min Comm on [facility] blood pressure 2022-05-06 13:50:00 117 mm[Hg] [facility] blood pressure 2022-05-06 13:50:00 75 mm[Hg] [facility] - diastolic [facility] height 2022-04-27 16:20:00 61 [in_i] [facility] weight 2022-04-27 16:20:00 224.8 [lb_av] [facility] temperature 2022-04-27 16:20:00 97.7 [degF] [facility] bmi 2022-04-27 16:20:00 42.47 kg/m2 Common [facility] oximetry 2022-04-27 16:20:00 95 % [facility] respiratory rate 2022-04-27 16:20:00 18 /min Comm on [facility] blood pressure 2022-04-27 16:20:00 115 mm[Hg] [facility] blood pressure 2022-04-27 16:20:00 73 mm[Hg] [facility] height 2022-04-14 13:30:00 61 [in_i] [facility] - [facility] weight 2022-04-14 13:30:00 236 [lb_av] [facility] - [facility] temperature 2022-04-14 13:30:00 97.4 [degF] [facility] - [facility] bmi 2022-04-14 13:30:00 44.59 kg/m2 [facility] - [facility] blood pressure 2022-04-14 13:30:00 126 mm[Hg] [facility] blood pressure 2022-04-14 13:30:00 72 mm[Hg] [facility] height 2022-03-13 07:40:00 61 [in_i] [facility] weight 2022-03-13 07:40:00 230 [lb_av] [facility] - [facility] temperature 2022-03-13 07:40:00 97 [degF] [facility] bmi 2022-03-13 07:40:00 43.45 kg/m2 [facility] blood pressure 2022-03-13 07:40:00 132 mm[Hg] [facility] blood pressure 2022-03-13 07:40:00 72 mm[Hg] [facility] height 2022-02-17 11:10:00 61 [in_i] [facility] - [facility] weight 2022-02-17 11:10:00 234 [lb_av] [facility] temperature 2022-02-17 11:10:00 98 [degF] [facility] - [facility] bmi 2022-02-17 11:10:00 44.21 kg/m2 [facility] blood pressure 2022-02-17 11:10:00 134 mm[Hg] [facility] blood pressure 2022-02-17 11:10:00 65 mm[Hg] [facility] height 2022-02-09 15:30:00 61 [in_i] [facility] weight 2022-02-09 15:30:00 241 [lb_av] [facility] temperature 2022-02-09 15:30:00 97.3 [degF] [facility] - [facility] bmi 2022-02-09 15:30:00 45.53 kg/m2 [facility] blood pressure 2022-02-09 15:30:00 138 mm[Hg] [facility] blood pressure 2022-02-09 15:30:00 84 mm[Hg] [facility] height 2022-01-20 13:50:00 61 [in_i] [facility] weight 2022-01-20 13:50:00 241.4 [lb_av] [facility] temperature 2022-01-20 13:50:00 97.5 [degF] [facility] bmi 2022-01-20 13:50:00 45.61 kg/m2 [facility] oximetry 2022-01-20 13:50:00 95 % [facility] S pirit [facility] respiratory rate 2022-01-20 13:50:00 18 /min Comm on [facility] - [facility] blood pressure 2022-01-20 13:50:00 115 mm[Hg] [facility] blood pressure 2022-01-20 13:50:00 59 mm[Hg] [facility] height 2022-01-20 14:00:00 61 [in_i] [facility] weight 2022-01-20 14:00:00 241.4 [lb_av] [facility] temperature 2022-01-20 14:00:00 97.5 [degF] [facility] bmi 2022-01-20 14:00:00 45.61 kg/m2 [facility] oximetry 2022-01-20 14:00:00 95 % [facility] respiratory rate 2022-01-20 14:00:00 18 /min Comm on [facility] blood pressure 2022-01-20 14:00:00 115 mm[Hg] [facility] blood pressure 2022-01-20 14:00:00 59 mm[Hg] [facility] - diastolic [facility] height 2022-01-06 14:00:00 61 [in_i] [facility] weight 2022-01-06 14:00:00 235 [lb_av] [facility] temperature 2022-01-06 14:00:00 97.4 [degF] [facility] bmi 2022-01-06 14:00:00 44.4 kg/m2 [facility] blood pressure 2022-01-06 14:00:00 124 mm[Hg] [facility] - systolic [facility] blood pressure 2022-01-06 14:00:00 84 mm[Hg] [facility] - diastolic [facility] height 2021-11-12 13:30:00 61 [in_i] [facility] weight 2021-11-12 13:30:00 231.0 [lb_av] [facility] temperature 2021-11-12 13:30:00 98.6 [degF] [facility] bmi 2021-11-12 13:30:00 43.64 kg/m2 [facility] oximetry 2021-11-12 13:30:00 96 % [facility] respiratory rate 2021-11-12 13:30:00 16 /min Comm on [facility] blood pressure 2021-11-12 13:30:00 134 mm[Hg] [facility] blood pressure 2021-11-12 13:30:00 78 mm[Hg] [facility] Heart rate 2022-08-08 07:37:04 75 /min [facility] Body temperature 2022-08-08 07:37:04 35.67 Yasmeen [facility] Respiratory rate 2022-08-08 07:37:04 18 /min [facility] Oxygen saturation in 2022-08-08 07:37:04 95 /min [facility] Arterial blood by Medical Ce nter Pulse oximetry Systolic blood 2022-08-08 07:36:00 100 mm[Hg] [facility] Diastolic blood 2022-08-08 07:36:00 55 mm[Hg] [facility] Body height 2022-08-07 07:15:00 152.4 cm [facility] Body weight 2022-08-07 07:15:00 110.9 kg [facility] BMI 2022-08-07 07:15:00 47.75 kg/m2 [facility] Systolic blood 2022-08-07 07:15:00 135 mm[Hg] [facility] Diastolic blood 2022-08-07 07:15:00 63 mm[Hg] [facility] Heart rate 2022-08-07 07:15:00 93 /min [facility] Body temperature 2022-08-07 07:15:00 36.89 Yasmeen [facility] Respiratory rate 2022-08-07 07:15:00 19 /min [facility] Oxygen saturation in 2022-08-07 07:15:00 95 /min [facility] Arterial blood by Medical Ce nter Pulse oximetry Body height 2022-07-21 14:21:00 154.9 cm [facility] Body weight 2022-07-21 14:21:00 108.863 kg [facility] BMI 2022-07-21 14:21:00 45.35 kg/m2 [facility] Systolic blood 2022-06-12 20:00:00 119 mm[Hg] [facility] pressure Diastolic blood 2022-06-12 20:00:00 70 mm[Hg] [facility] pressure Heart rate 2022-06-12 20:00:00 78 /min [facility] Respiratory rate 2022-06-12 20:00:00 18 /min [facility] Oxygen saturation in 2022-06-12 20:00:00 91 /min [facility] Arterial blood by Pulse oximetry Body temperature 2022-06-12 16:03:00 36.61 Yasmeen [facility] Body height 2022-06-12 16:02:00 154.9 cm [facility] Body weight 2022-06-12 16:02:00 105.235 kg [facility] BMI 2022-06-12 16:02:00 43.84 kg/m2 [facility] Procedures Procedure Date / Time Performed Performing Clinician [facility] e TISSUE EXAM 2022-08-07 11:53:00 [facility] EXCISION, MASS, 2022-08-07 10:00:00 [facility] [place] EXCISION, MASS, 2022-08-07 09:10:00 [facility] [place] EXCISION, MASS, 2022-08-07 08:30:00 [facility] PAROTID GLAND [place] US FNA W IMAGING 2022-06-12 19:31:27 [facility] CYTOLOGY 2022-06-12 18:40:00 [facility] (NON-GYNECOLOGICAL) REQUEST CT SOFT TISSUE NECK W 2022-05-28 19:38:00 [facility] CONTRAST Plan of Care Planned Activity Planned Date Details Comments Source Future Scheduled 2023-05-07 INFLUENZA VACCINE (Season [facility] Test 00:00:00 Ended) [code = INFLUENZA [facility] VACCINE (Season Ended)] Future Scheduled 2022-12-09 COVID-19 VACCINE (#1) [facility] 11:45:25 [code = COVID-19 VACCINE Hos pital (#1)] Future Scheduled 2022-12-09 Hepatitis C screening [facility] 11:45:25 (procedure) [code = Hospital 570416001] Future Scheduled 2022-12-09 BREAST CANCER SCREENING [facility] 11:45:25 [code = BREAST CANCER Hospit al SCREENING] Future Scheduled 2022-12-09 COLONOSCOPY SCREENING [facility] 11:45:25 [code = COLONOSCOPY Hospital SCREENING] Future Scheduled 2022-12-09 SHINGLES VACCINES (1 of [facility] Test 11:45:25 2) [code = SHINGLES Hospital VACCINES (1 of 2)] Future Scheduled 2022-12-09 Screening for malignant [facility] Test 11:45:25 neoplasm of cervix Hospital (procedure) [code = 834168003] Future Scheduled 2022-12-09 INFLUENZA VACCINE [code = [facility] 11:45:25 INFLUENZA VACCINE] Hospital Future Scheduled 2022-09-[address] [facility] Test 00:00:00 (12+) [code = DEPRESSION Med [facility] Center SCREENING (12+)] Future Scheduled 2022-08-17 Screening for malignant [facility] of Test 11:30:07 neoplasm of colon Medicine (procedure) [code = 100333241] Future Scheduled 2022-08-17 Screening for malignant [facility] Test 11:30:07 neoplasm of breast Medicine (procedure) [code = 271741516] Future Scheduled 2022-08-17 COVID-19 Vaccine (#1) [facility] Test 11:30:07 [code = COVID-19 Vaccine Med icine (#1)] Future Scheduled 2022-08-17 Pneumococcal Combined (1 [facility] Test 11:30:07 - PCV) [code = Medicine Pneumococcal Combined (1 - PCV)] Future Scheduled 2022-08-17 TETANUS SHOT (ADULT) [facility] Test 11:30:07 [code = TETANUS SHOT Medicin e (ADULT)] Future Scheduled 2022-08-17 BMI FOLLOW UP PLAN [code [facility] Test 11:30:07 = BMI FOLLOW UP PLAN] Medici ne Future Scheduled 2022-08-17 Hepatitis C screening [facility] Test 11:30:07 (procedure) [code = Medicine [id number]] Future Scheduled 2022-08-17 Human immunodeficiency B [facility] Test 11:30:07 virus screening Medicine (procedure) [code = 411647876] Future Scheduled 2022-08-17 Screening for malignant [facility] of Test 11:30:07 neoplasm of cervix Medicine (procedure) [code = 806030788] Future Scheduled 2022-08-17 Screening for malignant [facility] Test 11:30:07 neoplasm of lung Medicine (procedure) [code = 594913354] Future Scheduled 2022-08-17 ZOSTER VACCINE (1 of 2) [facility] Test 11:30:07 [code = ZOSTER VACCINE (1 Me dicine of 2)] Future Scheduled 2022-08-17 FLU VACCINE > 6 MONTHS B [facility] Test 11:30:07 [code = FLU VACCINE > 6 Medi cine MONTHS] Future Scheduled 2022-07-15 COLONOSCOPY SCREENING [facility] 16:29:42 [code = COLONOSCOPY Hospital SCREENING] Future Scheduled 2022-07-15 SHINGLES VACCINES (1 of [facility] 16:29:42 2) [code = SHINGLES Hospital VACCINES (1 of 2)] Future Scheduled 2022-07-15 Screening for malignant [facility] Test 16:29:42 neoplasm of cervix Hospital (procedure) [code = 527492979] Future Scheduled 2022-07-15 INFLUENZA VACCINE [code = [facility] Test 16:29:42 INFLUENZA VACCINE] Hospital Future Scheduled 2022-07-15 HEPATITIS B VACCINES (1 [facility] Test 16:29:42 of 3 - 3-dose series) Hospit al [code = HEPATITIS B VACCINES (1 of 3 - 3-dose series)] Future Scheduled 2022-07-15 COVID-19 VACCINE (#1) [facility] 16:29:42 [code = COVID-19 VACCINE Hos pital (#1)] Future Scheduled 2022-07-15 Hepatitis C screening [facility] 16:29:42 (procedure) [code = Hospital 749994795] Future Scheduled 2022-07-15 BREAST CANCER SCREENING [facility] 16:29:42 [code = BREAST CANCER Hospit al SCREENING] Future Scheduled 2022-06-24 HEPATITIS B VACCINES (1 [facility] Test 13:46:42 of 3 - 3-dose series) Hospit al [code = HEPATITIS B VACCINES (1 of 3 - 3-dose series)] Future Scheduled 2022-06-24 COVID-19 VACCINE (#1) [facility] 13:46:42 [code = COVID-19 VACCINE Hos pital (#1)] Future Scheduled 2022-06-24 Hepatitis C screening [facility] 13:46:42 (procedure) [code = Hospital 416365102] Future Scheduled 2022-06-24 BREAST CANCER SCREENING [facility] 13:46:42 [code = BREAST CANCER Hospit al SCREENING] Future Scheduled 2022-06-24 COLONOSCOPY SCREENING [facility] 13:46:42 [code = COLONOSCOPY Hospital SCREENING] Future Scheduled 2022-06-24 SHINGLES VACCINES (1 of [facility] Test 13:46:42 2) [code = SHINGLES Hospital VACCINES (1 of 2)] Future Scheduled 2022-06-24 Screening for malignant [facility] Test 13:46:42 neoplasm of cervix Hospital (procedure) [code = 756586070] Future Scheduled 2022-06-24 INFLUENZA VACCINE [code = [facility] Test 13:46:42 INFLUENZA VACCINE] Hospital Future Scheduled 2022-06-13 BMI FOLLOW UP PLAN [code [facility] Test 14:56:59 = BMI FOLLOW UP PLAN] Medici ne Future Scheduled 2022-06-13 Hepatitis C screening Ba [facility] of Test 14:56:59 (procedure) [code = Medicine 722605452] Future Scheduled 2022-06-13 Human immunodeficiency B [facility] of Test 14:56:59 virus screening Medicine (procedure) [code = 043231304] Future Scheduled 2022-06-13 Screening for malignant [facility] of Test 14:56:59 neoplasm of cervix Medicine (procedure) [code = 068539212] Future Scheduled 2022-06-13 Screening for malignant [facility] of Test 14:56:59 neoplasm of lung Medicine (procedure) [code = 827043428] Future Scheduled 2022-06-13 ZOSTER VACCINE (1 of 2) [facility] Test 14:56:59 [code = ZOSTER VACCINE (1 Me dicine of 2)] Future Scheduled 2022-06-13 FLU VACCINE > 6 MONTHS B [facility] of Test 14:56:59 [code = FLU VACCINE > 6 Medi cine MONTHS] Future Scheduled 2022-06-13 Screening for malignant [facility] of Test 14:56:59 neoplasm of colon Medicine (procedure) [code = 157166621] Future Scheduled 2022-06-13 Screening for malignant [facility] Test 14:56:59 neoplasm of breast Medicine (procedure) [code = 864550942] Future Scheduled 2022-06-13 COVID-19 Vaccine (#1) [facility] Test 14:56:59 [code = COVID-19 Vaccine Med icine (#1)] Future Scheduled 2022-06-13 Pneumococcal Combined (1 [facility] Test 14:56:59 - PCV) [code = Medicine Pneumococcal Combined (1 - PCV)] Future Scheduled 2022-06-13 TETANUS SHOT (ADULT) [facility] Test 14:56:59 [code = TETANUS SHOT Medicin e (ADULT)] Future Scheduled 2022-05-07 INFLUENZA VACCINE (#1) C [...] Medicare IPPE (WELCOME TO MEDICARE)] Future Scheduled 2022-04-06 Medicare IPPE (WELCOME TO [facility] Test 00:00:00 MEDICARE) [code = Medical Ce nter Medicare IPPE (WELCOME TO MEDICARE)] Future Scheduled 2022-04-06 Medicare IPPE (WELCOME TO [...] [facility] Test 00:00:00 [code = 91746425] Medical Ce nter Future Scheduled 2007 Lipid panel (procedure) [facility] Test 00:00:00 [code = 43343809] Medical Ce nter Future Scheduled 2007 Lipid panel (procedure) [facility] Test 00:00:00 [code = 91520243] Medical Ce nter Future Scheduled 2007 Lipid panel (procedure) [facility] Test 00:00:00 [code = 10301580] Medical Ce nter Future Scheduled 2007 Lipid panel (procedure) [facility] Test 00:00:00 [code = 39485782] Medical Ce nter Future Scheduled 2007 Lipid panel (procedure) [facility] Test 00:00:00 [code = 89072477] Medical Ce nter Future Scheduled 1983 Screening for malignant [facility] Test 00:00:00 neoplasm of cervix Medical C enter (procedure) [code = 143500325] Future Scheduled 1983 Screening for malignant [facility] Test 00:00:00 neoplasm of cervix Medical C enter (procedure) [code = 576682843] Future Scheduled 1983 Screening for malignant [facility] Test 00:00:00 neoplasm of cervix Medical C enter (procedure) [code = 514011448] Future Scheduled 1983 Screening for malignant [facility] Test 00:00:00 neoplasm of cervix Medical C enter (procedure) [code = 354847738] Future Scheduled 1983 Screening for malignant [facility] Test 00:00:00 neoplasm of cervix Medical C enter (procedure) [code = 543574174] Future Scheduled 1983 Screening for malignant [facility] Test 00:00:00 neoplasm of cervix Medical C enter (procedure) [code = 796763085] Future Scheduled 1981 DTAP/TDAP/TD VACCINES (1 [facility] [...] breast Medical C enter (procedure) [code = 869457174] Future Scheduled 1962 CT Colonography (combo) [facility] Test 00:00:00 [code = CT Colon[facility] ([facility]bo)] Future Scheduled 1962 Screening for malignant [facility] Test 00:00:00 neoplasm of colon Medical Ce nter (procedure) [code = 292418829] Future Scheduled 1962 Screening for malignant [facility] Test 00:00:00 neoplasm of colon Medical Ce nter (procedure) [code = 960767946] Future Scheduled 1962 Screening for malignant [facility] Test 00:00:00 neoplasm of colon Medical Ce nter (procedure) [code = 761131591] Future Scheduled 1962 Screening for malignant [facility] Test 00:00:00 neoplasm of colon Medical Ce nter (procedure) [code = 315271079] Future Scheduled 1962 Sigmoidoscopy [facility] Medical Cent[facility] r Future Scheduled 1962 Screening for malignant [facility] Test 00:00:00 neoplasm of breast Medical C enter (procedure) [code = 693042060] Future Scheduled 1962 CT Colonography (combo) [facility] Test 00:00:00 [code = CT Colonography [facility] (combo)] Future Scheduled 1962 Screening for malignant [facility] Test 00:00:00 neoplasm of colon Medical Ce nter (procedure) [code = 781113026] Future Scheduled 1962 Screening for malignant [facility] Test 00:00:00 neoplasm of colon Medical Ce nter (procedure) [code = 966546333] Future Scheduled 1962 Screening for malignant [facility] Test 00:00:00 neoplasm of colon Medical Ce nter (procedure) [code = 451338288] Future Scheduled 1962 Screening for malignant [facility] Test 00:00:00 neoplasm of colon Medical Ce nter (procedure) [code = 115700566] Future Scheduled 1962 Sigmoidoscopy [facility]] Medical Cente r Future Scheduled 1962 Screening for malignant [facility] Test 00:00:00 neoplasm of breast Medical C enter (procedure) [code = 730073645] Future Scheduled 1962 CT Colonography (combo) [facility] Test 00:00:00 [code = CT Colonography [facility] (combo)] Future Scheduled 1962 Screening for malignant [facility] Test 00:00:00 neoplasm of colon Medical Ce nter (procedure) [code = 977611120] Future Scheduled 1962 Screening for malignant [facility] Test 00:00:00 neoplasm of colon Medical Ce nter (procedure) [code = 098368417] Future Scheduled 1962 Screening for malignant [facility] Test 00:00:00 neoplasm of colon Medical Ce nter (procedure) [code = 208755607] Future Scheduled 1962 Screening for malignant [facility] Test 00:00:00 neoplasm of colon Medical Ce nter (procedure) [code = 820270794] Future Scheduled 1962 S[facility]oidoscopy [facility] Medical Cente r Future Scheduled 1962 Screening for malignant [facility] Test 00:00:00 neoplasm of breast Medical C enter (procedure) [code = 589054858] Future Scheduled 1962 CT Colonography (combo) [facility] Test 00:00:00 [code = CT Colonography [facility] (combo)] Future Scheduled 1962 Screening for malignant [facility] Test 00:00:00 neoplasm of colon Medical Ce nter (procedure) [code = 013929186] Future Scheduled 1962 Screening for malignant [facility] Test 00:00:00 neoplasm of colon Medical Ce nter (procedure) [code = 292583226] Future Scheduled 1962 Screening for malignant [facility] Test 00:00:00 neoplasm of colon Medical Ce nter (procedure) [code = 170298318] Future Scheduled 1962 Screening for malignant [facility] Test 00:00:00 neoplasm of colon Medical Ce nter (procedure) [code = 572669326] Future Scheduled 1962 Sigmoidoscopy [facility] Test 00:00:00 Sigmoidoscopy] Medical Cente r Future Scheduled 1962 Screening for malignant [facility] Test 00:00:00 neoplasm of breast Medical C enter (procedure) [code = 233057220] Future Scheduled 1962 CT Colonography (combo) [facility] Test 00:00:00 [code = CT Colonography [facility] (combo)] Future Scheduled 1962 Screening for malignant [facility] Test 00:00:00 neoplasm of colon Medical Ce nter (procedure) [code = 574320965] Future Scheduled 1962 Screening for malignant [facility] Test 00:00:00 neoplasm of colon Medical Ce nter (procedure) [code = 557547079] Future Scheduled 1962 Screening for malignant [facility] Test 00:00:00 neoplasm of colon Medical Ce nter (procedure) [code = 611438980] Future Scheduled 1962 Screening for malignant [facility] Test 00:00:00 neoplasm of colon Medical Ce nter (procedure) [code = 504608705] Future Scheduled 1962 Sigmoidoscopy [facility]code = [facility] Test 00:[facility]oscopy] Medical Cente r Future Scheduled 1962 Screening for malignant [facility] Test 00:00:00 neoplasm of breast Medical C enter (procedure) [code = 605389687] Future Scheduled 1962 CT Colonography (combo) [facility] Test 00:00:00 [code = CT Colonography [facility] (combo)] Future Scheduled 1962 Screening for malignant [facility] Test 00:00:00 neoplasm of colon Medical Ce nter (procedure) [code = 800642477] Future Scheduled 1962 Screening for malignant [facility] Test 00:00:00 neoplasm of colon Medical Ce nter (procedure) [code = 361466019] Future Scheduled 1962 Screening for malignant [facility] Test 00:00:00 neoplasm of colon Medical Ce nter (procedure) [code = 386460900] Future Scheduled 1962 Screening for malignant [facility] Test 00:00:00 neoplasm of colon Medical Ce nter (procedure) [code = 441438935] Future Scheduled 1962 Sigmoidoscopy [code = [facility] Test 00:[facility]:00 Sigmoidoscopy] Medical Cente r Encounters Start End Encounter Admission Attending Care Care Encounter Source Date/Time Date/Time Type Type Clinicians Facility Department ID 2022-08-06 Outpatient SYSTEM, ALBINO POSADA [id number] 14:30:47 PROVIDER Deshaun o n 2022-08-03 Outpatient Fernandez, STLC STLC [id number] Common 16:09:[address] [facility] 2022-07-01 Outpatient SYSTEM, ALBINO POSADA [id number] 15:40:17 PROVIDER Deshaun o n 2022-05-12 Outpatient Fernandez, STLC STLC [id number] Common 09:54:[address] [facility] 2022-05-06 Outpatient Fernandez, STLMLC STLC [id number] Common 14:30:[address] [facility] 2022-04-13 Outpatient Fernandez, STLMLC STLC [id number] Common 16:09:[address] [facility] 2022-02-16 Outpatient Fernandez, STLMLC STLC [id number] Common 14:51:[address] [facility] 2022-02-10 Outpatient Fernandez, STLMLC STLC [id number] Common 14:17:[address] [facility] 2022-01-22 Outpatient Fernandez, STLMLC STLC [id number] Common 12:32:[address] [facility] 2022-01-20 Outpatient Fernandez, STLMLC STLC [id number] Common 13:44:[address] [facility] 2022-01-08 Outpatient Fernandez, STLMLC STLC [id number] Common 15:42:[address] [facility] 2022-01-06 Outpatient Fernandez, STLMLC STLC Common 14:20:[address] [facility] 2021-12-29 Outpatient Fernandez[facility] Common 15:30:[address] [facility] 2021-11-12 Outpatient Fernandez, [facility] [id number] Common 14:05:[address] [facility] 2022-12-24 2022-12-24 NPR Arturo 1.2.840.1 [id number] [facility] 15:00:00 15:00:00 Raquel 19687.1.1 ity of 3.412.2.7 [place] .3.372886 .8 [facility] 2022-12-24 2022-12-24 Outpatient PERRY MORRIS [facility] [id number] 13:58:51 13:59:00 RAQUEL bazan 2022-09-10 2022-09-10 (TEL) STLC STLC [id number] Co mmon 00:00:00 00:00:[address] [facility] 2022-09-10 2022-09-10 OFFICE STLC STLC [id number] Co mmon 00:00:00 00:00:00 VISIT [facility] LEVEL 4 [facility] 2022-08-17 2022-08-17 Office LYNDA ARELLANO 1.2.840.114 [id number] [facility] 11:15:54 11:53:11 Visit SHEN AMBULATOR 350.1.13.21 College Y 0.2.7.2.686 of [id number] Medi antonio 800 e 2022-08-132022-08-13 (WEB) [facility] [id number] Co mmon 00:00:00 00:00:[address] [facility] 2022-08-13 2022-08-13 (WEB) [facility] [id number] Co mmon 00:00:00 00:00:[address] [facility] 2022-08-07 2022-08-08 Outpatient PERRY ARELLANO, [facility] Surgery [id number] [facility] 06:48:00 10:48:00 [place] 2022-08-07 2022-08-08 [facility] [id number] 06:48:00 10:48:00 Encounter [facility] 2022-08-07 2022-08-08 [facility] [id number] 06:48:00 10:48:00 Encounter [facility] 2022-08-07 2022-08-07 Outpatient [facility] [id number] [facility] 06:48:00 23:59:00 Mark Medicin callie 2022-08-07 2022-08-07 [facility] [id number] [facility] 09:10:00 13:07:00 Event [facility] 2022-08-07 2022-08-07 [facility] [id number] [facility] 09:10:00 13:07:00 Event [facility] 2022-08-07 2022-08-07 Surgery [facility] [id number] 08:30:00 11:40:00 [facility] 2022-08-07 2022-08-07 Surgery [facility] [id number] 08:30:00 11:40:00 [facility] 2022-08-07 2022-08-07 Travel [facility] [id number] [facility] 00:00:00 00:00:00 [facility] 2022-08-07 2022-08-07 Travel [facility] [id number] [facility] 00:00:00 00:00:00 [facility] 2022-08-05 2022-08-05 (WEB) STLMLC STLMLC [id number] Co mmon 00:00:00 00:00:[address] [facility] 2022-08-05 2022-08-05 (WEB) STLMLC STLMLC [id number] Co mmon 00:00:00 00:00:[address] [facility] 2022-08-04 2022-08-04 (WEB) STLMLC STLMLC [id number] Co mmon 00:00:00 00:00:[address] [facility] 2022-08-04 2022-08-04 (WEB) STLMLC STLMLC [id number] Co mmon 00:00:00 00:00:[address] [facility] 2022-08-04 2022-08-04 OFFICE STLMLC STLMLC [id number] Co mmon 00:00:00 00:00:00 VISIT [facility] LEVEL 4 [facility] 2022-08-03 2022-08-03 (WEB) STLMLC STLMLC [id number] Co mmon 00:00:00 00:00:[address] [facility] 2022-07-28 2022-07-28 (TEL) STLMLC STLMLC [id number] Co mmon 00:00:00 00:00:[address] [facility] 2022-07-23 2022-07-23 (WEB) STLMLC STLMLC [id number] Co mmon 00:00:00 00:00:[address] [facility] 2022-07-23 2022-07-23 (WEB) STLMLC STLMLC [id number] Co mmon 00:00:00 00:00:[address] [facility] 2022-07-23 2022-07-23 (TEL) STLMLC STLMLC [id number] Co mmon 00:00:00 00:00:[address] [facility] 2022-07-22 2022-07-22 (TEL) STLMLC STLMLC [id number] Co mmon 00:00:00 00:00:[address] [facility] 2022-07-21 2022-07-21 Outpatient PERRY ARELLANO, [facility] SLE [id number] [facility] 00:00:00 00:00:00 SHEN 2022-07-13 2022-07-13 (TEL) STLMLC STLMLC [id number] Co mmon 00:00:00 00:00:[address] [facility] 2022-07-09 2022-07-09 (TEL) STLMLC STLMLC [id number] Co mmon 00:00:00 00:00:[address] [facility] 2022-06-30 2022-06-30 Telephone Ramón, 1.2.840.1 [id number] Univers 00:00:00 00:00:00 Celaysheia 79417.1.1 i ty of S 3.412.2.7 [place] .3.213646 MD Figueroa8 [facility] 2022-06-30 2022-06-30 Telephone Ramón, 1.2.840.1 [id number] Univers 00:00:00 00:00:00 Celaysheia 23250.1.1 i ty of S 3.412.2.7 [place] .3.440032 MD Figueroa8 [facility] 2022-06-12 2022-06-12 [facility] Ramiro, 1.2.840.1 [id number] Methodi 10:25:37 23:59:00 Encounter Juventino P. 75830.1.[address] 3.430.2.7 Hospit a .3.710146 l .8 2022-06-12 2022-06-12 [facility] Ramiro, 1.2.840.1 [id number] Methodi 10:25:37 23:59:00 Encounter Juventino P. 81809.1.[address] 3.430.2.7 Hospit a .3.216806 l .8 2022-06-12 2022-06-12 Lab Talamantes, 1.2.840.1 [id number] Methodi 14:15:00 14:20:[address] 3.430.2.7 Hospit a .3.339637 l .8 2022-06-12 2022-06-12 Lab Talamantes, 1.2.840.1 [id number] Methodi 14:15:00 14:20:00 [address] 3.430.2.7 Hospit a .3.334484 l .8 2022-06-11 2022-06-11 Travel 1.2.840.1 1.2.318.051 [id number] Methodi 00:00:00 00:00:[address] 3.430.2.7 0.2.7.3.698 Ho spita .3.593753 084.8 l .8 2022-06-11 2022-06-11 Travel 1.2.840.1 1.2.448.220 7425 [id number] Methodi 00:00:00 00:00:[address] 3.430.2.7 0.2.7.3.698 Ho spita .3.641073 084.8 l .8 2022-06-10 2022-06-10 Office LYNDA ARELLANO 1.2.840.114 [id number] [facility] 14:24:39 15:28:34 Visit SHEN AMBULATOR 350.1.13.21 College Y 0.2.7.2.686 of [id number] Medi antonio 800 e 2022-06-10 2022-06-10 Telephone Sirls, 1.2.840.1 [id number] [id number] Methodi 00:00:00 00:00:[address] 3.430.2.7 Hospit a .3.448268 l .8 2022-06-10 2022-06-10 Telephone Sirls, 1.2.840.1 [id number] Methodi 00:00:00 00:00:[address] 3.430.2.7 Hospit a .3.599465 l .8 2022-06-09 2022-06-09 (IN/ASP) STLMLC STLC [id number] C ommon 00:00:00 00:00:[address] [facility] 2022-06-08 2022-06-08 Orders Talamantes, 1.2.840.1 [id number] Methodi 00:00:00 00:00:00 Only Juventino P. [address]49.1.[address] 3.430.2.7 Hospit a .3.008422 l .8 2022-06-08 2022-06-08 Orders Talamantes, 1.2.840.1 [id number] Methodi 00:00:00 00:00:00 Only Juventino P. 06388.1.[address] 3.430.2.7 Hospit a .3.231718 l .8 2022-06-03 2022-06-03 Telephone Sirls, 1.2.840.1 [id number] 2100 [id number] Methodi 00:00:00 00:00:[address] 3.430.2.7 Hospit a .3.884879 l .8 2022-06-03 2022-06-03 Telephone Sirls, 1.2.840.1 [id number] Methodi 00:00:00 00:00:[address] 3.430.2.7 Hospit a .3.400757 l .8 2022-06-01 2022-06-01 (IN/ASP) STLMLC STLMLC [id number] C ommon 00:00:00 00:00:[address] [facility] 2022-05-28 2022-05-28 Outpatient RAMIRO, [facility] [id number] [place] 00:00:00 00:00:00 JUV[address]INO [address] 2022-05-20 2022-05-20 (TEL) STLMLC STLMLC [id number] Co mmon 00:00:00 00:00:[address] [facility] 2022-05-06 2022-05-06 OFFICE STLMLC STLMLC [id number] Co mmon 00:00:00 00:00:00 VISIT [facility] - [facility] LEVEL 4 [facility] 2022-04-28 2022-04-28 (TEL) STLMLC STLMLC [id number] Co mmon 00:00:00 00:00:[address] [facility] 2022-04-27 2022-04-27 OFFICE STLMLC STLMLC [id number] Co mmon 00:00:00 00:00:00 VISIT EST Spir it PT LEVEL 3 [facility] 2022-04-23 2022-04-23 (TEL) STLMLC STLMLC [id number] Co mmon 00:00:00 00:00:[address] [facility] 2022-04-21 2022-04-21 (TEL) STLMLC STLMLC [id number] Co mmon 00:00:00 00:00:[address] [facility] 2022-04-14 2022-04-14 OFFICE STLMLC STLMLC [id number] Co mmon 00:00:00 00:00:00 VISIT [facility] ESTAB PT - [facility]I LEVEL 4 [facility] 2022-03-13 2022-03-13 OFFICE STLMLC STLMLC [id number] Co mmon 00:00:00 00:00:00 VISIT [facility] - [facility] LEVEL 4 [facility] 2022-03-05 2022-03-05 (TEL) STLMLC STLMLC [id number] Co mmon 00:00:00 00:00:[address] [facility] 2022-02-17 2022-02-17 OL DIG E/M STLMLC STLMLC [id number] Common 00:00:00 00:00:00 SVC 21+ [facility] MIN [facility] 2022-02-09 2022-02-09 OFFICE STLMLC STLMLC [id number] Co mmon 00:00:00 00:00:00 VISIT [facility] ESTAB PT - [facility]I LEVEL 4 [facility] 2022-01-20 2022-01-20 OFFICE STLMLC STLMLC [id number] Co mmon 00:00:00 00:00:00 VISIT [facility] ESTAB PT - [facility]I LEVEL 4 [facility] 2022-01-20 2022-01-20 SUB ANNUAL STLMLC STLMLC [id number] Common 00:00:00 00:00:00 MCR [facility] - [facility] VISIT [facility] 2022-01-20 2022-01-20 (TEL) STLMLC STLMLC [id number] Co mmon 00:00:00 00:00:[address] [facility] 2022-01-16 2022-01-16 (TEL) STLMLC STLMLC [id number] Co mmon 00:00:00 00:00:[address] [facility] 2022-01-14 2022-01-14 (TEL) STLMLC STLMLC [id number] Co mmon 00:00:00 00:00:[address] [facility] 2022-01-07 2022-01-07 (TEL) STLMLC STLMLC [id number] Co mmon 00:00:00 00:00:[address] [facility] 2022-01-06 2022-01-06 OFFICE STLMLC STLMLC [id number] Co mmon 00:00:00 00:00:00 VISIT NEW Spir it PT LEVEL 4 [facility] 2021-12-29 2021-12-29 (TEL) STLMLC STLMLC [id number] Co mmon 00:00:00 00:00:[address] [facility] 2021-11-12 2021-11-12 OFFICE STLMLC STLMLC [id number] Co mmon 00:00:00 00:00:00 VISIT NEW Spir it PT LEVEL 3 [facility] 2021-11-12 2021-11-12 (TEL) STLMLC STLMLC [id number] Co mmon 00:00:00 00:00:[address] [facility] Results Test Description Test Time Test Comments Results Result Comments Source Tissue Exam 2022-08-14 11:25:05 Test Item Value Reference Range Interpretation Comme nts Case Report (test code = 104) Surgical Pathology Report Case: [id number] Authorizing Provider: Shen Arellano MD Collected: 08/07/2022 11:53 AM Ordering Location: [facility] PERIOPERATIVE Received: 08/07/2022 06:13 PM SERVICES Pathologist: Cong Riley MD Specimen: Parotid, Right, Right total parotidectomy DIAGNOSIS (test code = 3220) j1uvmYQpBPTja8xwTWTsqRFmKqViYpHzUxAtEm pc dWMxIHtccnRmMVxlcGljOTYwMlxhbnNpXHNwbHRw J6SxweeiACaxVE9wUU2dlTvxwVNgjJVyDUFuKvNf a0xkx333iJLim3cwJNCQswqesGw6jOsjC27qh5W5 CjdtD07gkLFoBTL6SSOiUXJbnDDqWRZxCPY1YIZl rQOzJ3jiTNWgHG5jqspnPGlnQHciJWSpbKP3RSTg lXDwB6WhESVyKPlhETMtnmp6OjCwEv2grOQpnXzn OXluABWmIPOqKZgtAMRaDvPmTH8vMPZUDu4MRPQh XSRVI2cFYARHGBTNZHDKGr1QHPQOR2MKLDzekJtn ZKKmGKJPP9VBCZINYMxfLGRDHj4WIGLQRIWTZHFF N9OJUeWTEJNZU4NvNECmCNEQDTlaXUSSOFPHJcUA TyJMPGMGD21HTBSPGTxPYQIDN9jILDJnKGsnnrJb JUXURWFFWKz5QZDIKA9BR48nUFoZHXplXz3OBNNx JTObzg59TZP8RaSnk5R9XHG6MZCgYWWiu7seHZMh vZUcZqPiVqXtIiYfNfhvfHFjNBHiXsDoi1qmk846 eWFsw8kjMMHdKxS6pCUuWOVdmCCuR028LMWuURyu d7vxn1ChUTZjjNAqp5R0SIISujjkoXj3rAljA81o h6H0ZosfH5egRVXsTDWsL0TqER3jJLIqMbw5KAS3 VVK5IJLoAIOkO1QnJS7oSBJpvZDkHAa9h1sfzXms ZUGuWVL5l9eiOHcxndRaHC9opi8kzKa1y7htpnTv JRBoNGIpaJQMWDTpI5CluGgjMn8zvBv2gZlwNicy RFY7Zgv9CN1nvr97jil4oCgnHRBbfgbvFxE3LNyp RHVyrjqbVNr4FNrrGQAzwGF3XBGchKMzD2LtUDWx OZ2vfln7AOI3DEkkPBIhFzV4VXMvuMWmNNBxvUpd GKtir507CZB2DhXkVP9rO6Ikr9P2yX2npLDnZTIb oODwCzYhABIxmi9afZYfTTqyu5KrJHU9ufP8iRUo dLLgJGKyEfS3ZHkoVE1bvu09BRBiJCK0xp5lfABe sBmvfcNsqZAsUYykL6SbFTPtl505QDTbO7WyKCLo u0O5vcEmGaDeNTYhbWC1nwZ9ILCiLY8hljpdn0fb FWpdHTvoLXLdfmS4kqV6VBOgoBEzF6LmbS5nLSVl HH9fwvpeo8jyAXF4FIerQNKrLCZ5TeWeDRJyc9Cd snm2CgMiu1IcgQUbHJatA14ef348RWXctqJpI4ug bRGntpxnpRYwvpeyGXgoxeV4NGEnDQpcqadlAGKn GKvdL1heFhXtKVTebBzwBFaha7TeKRTsYFExTlRe wRLmJYCuIem1VTDasGMzUDQmQvPsV0jkclteUfOM LRPfa4lyY6tzjMTRaBMhG2AqBKtlhiVrNEllTLpc UiKrRVv8NL37VmBjWRFigb46 COMMENT (test code = 3359) y1zbwOVzQLTcrJB2PfKlTWXmf9gpk1EdkKTxbQZh XKkjlQNkhgPyzv87rHU0iX49ZF6jXAAmRgU6ESZi xcJ9Duc5MCGkGWIxtEZeB626t4ucp8uuuoIedRH4 pHblYLGtzvebRqR1JAwoBOGhlynmKRo7SRtkIFZp zAC4VZIthPPzM3XoQFVbME8lrwb1OPI4TWmoMBFd SmZ8LZHwiWGqREIrlXnoSPong323ICE1NeNqKYLe xwNfgNbvtU2mLnKwZSYiRyTuDS2nVQYBNEOnXv4z KMupr7QwkxldhHbbiPfcW7j8MUUcc3Zkk8ulWINp jVmvOHYfGFYNVVNpOXMlJNoeY7qubXffbKXqyXWw yC6qfJYsAFioob3cLAQkJXEyeDKpnU0vjZLyivRc sD1mp9Jzv72ihCJxSRsbbhCymxXhXsH2GX4lJKAe pfujTPJbo5ocBNZxKQD0JPBhIEMtiABeJDSgYLWh e9k2bFRtxDbaaX4dYlCrLZrasNPwI9NvwQBhTYMv cn0= CPT Code(s) (test code = 3357) h9zkrLDdZEPolHU9PqLmBFSaq0xrj5EvzJOk cGFy MMlavPOwfwGqjj31uRZ5dF52DF2iQUSdTrD3AXMz cbX3Awj4HHZcYWNzuKUqU544q1ntw5kfohQokEV1 xUpmGTRmewtdBcR5GShmJXMswsrjMXq8FOaaTVHk kXL4LLWutWLlJ0HfNPZbMZ0zeij7RIS3HOweJQTz DxO8INCaeTYuIKNpgWtrBFfvu569SFO6AkFzZWIt xhGmuUjuzY1iOgYcSFG4FGFhPqgyKPmaAMKpLCv7 MzQxIHggNFxwYXJ9 GROSS DESCRIPTION (test code = l0lllERgSTCxwYTLMORoE2xlnmZwWMInqMJw [facility] [id number]) vlfgYAlxDT3uPL1tiKdufLUczOAaEX5TRBIiPnSh ZDBglJVohsWrGmBvKXDpwKSsvBA1MBPcWQ6udwda DYrtOFfxGWLapdM0OTNleAVcE1RvBADhDC7jlmzu ZUM8BXykfF5qywBFUqnmEp7kzVEyhBwcOfLeTiDa YYKnFBFmNCFteGcrMMFxVTg6cS1NCcjqTTN9KJBO LjotRPIyKJ6Np1hcGLZuiZIcETJ9HIdclRAnJQIy ALQmYEu2NWUcTDdgwTWaPG0gkAcmQrvbqXwdi2Kf qLUqOBefCBZsVIImYGczOWUtMI2YVrSqUIJlNcj7 AzxtOLt0MDs7NM3EJbVuSMSpHIK3PtvzFHOuWCz0 TRikTW8QOHR4KMhtZSZ1ZCN0BUV4EPQiLLEqJuJy ZNCyUTFjTZdiXUpacCCnYJ2ouKpoaIRhypFOBrRI IIUlhZwnRURAgYztrA0gkUJvBN3HYISvfAGAXDT2 FP9hANKYMnmrpNMuOSDobUrqKUwmfA0iSX5VCUr8 cwNxOMJcSmQmBzVtLNl5AVSnFxJcr5sbALvjUeWs MZQmtQeeBQBrdXqujfExpgIgEY7dKVFYIr8snuJq JnOsIGOvPENnhtzosYJovD16PVqajHEun4YnZVPn zI0rfPDmF72hf6tqcKVqs2JaVMW0FJ1zZwEcu87r ZXdnNkGsEDUqOKuibN0ulcmxejAmKAMyZJPbiGme NAehVH2uLYqiYjKakEVwRoKbeMOwFsHsM73xCEqi NzggZyksIHRoZSBvdXRlciBzdXJmYWNlcyBhcmUg aO4fNJJxOex0DGkgq0JetIkbrnytXrBqxH93lvPn PXPwim5rbY6qDEH3QJrqNYOwU2Xkq2DoWNPhKRuw O7PrzHJhqHy8LQzhvC3qzllmY4jiAWqew7egjmab NQH7bOVjtnbrdUwjESIwq7Cjy4DjiJ7maptrlbJq SBPhmygcBYVuLKHtR1Fik87rfIAcN4pdXZOwHOJf xSZstelmOj51QThaQJ23CXbkVS0hBUFbZlWpPVgy HZVgJBIbzLRzIAieEFSitSxmRQl8CHGrUVKsNPE2 QR50zTSewPwkv6XwaEw5yVKuPBviEVRgNNZ9ORF3 kCWlRZgnk9zjvzLskaTudP0qa8KnCDWrKPUaDKJb CWYcta8am4q0KRMbzL91j0g8ZOUomP2qXlsgQ6hq OXI0FBQ1TRDhuyZJObxoQSXeEBblJATkWHInPAnt TWJMIXMoLHszlHbdpG9oEUMtB94an4NSr5YnRYSi EYprf4uveOejy5MauSDxNPkvNWAthGGcDMmypL8x IcHmh8bliTq1UFpjqhY9DGKwkk9WVvpfkN5iQhHq o2tkvPx4SRJHKvzvdcZ9p4tegNsxv8GvaZKtJY5S Cn0= SPECIAL STUDIES (test code = 3376) a2ndsDJjMOVfs6woGLJapEEcAxVoFfXs ZnRuYmpc uLFnBWtdciRcRXjoa4HvV2RfGjLxTJydpfDlGXFi FxtiehdzKWCzMSX8mgYmNUZoWDxcNQEwZNsvAy4e pFWgjAspIsCcMPMni5enytROgouybDf6r3xiNGGu NqL5eTVzGAavO2ntrtFgmRZdK3QamDGqfGs7j0oh EtYoWfO4jAAkBWesP5rkmxWwjNUcFPBpPHc8xX35 FDFujF6zpUEiYHaaeaFqAdB8UGroOYYaKsM7DUDv sNEvQRRzY6bmETIyBDqqROArWJkqjAEqIFZ5xIiv u5A6gIPpnGEovJueJwMlXcTwMpWZg5SrWQb0oKdn Y7UhIKWwEsZ8aAKnROTgRWesTDUtPHErqfH5cFot onDyw82ipEUfBASlXVRaWhRjyAjwTUHuGCXSx4Tc uTleLRY4xVl7qMloPzymKHI9Uad3DC8jfs27oph7 iClaHPTsbczfOsE4EGgzENAqiqkeSHx9LZnyYQQa hNQ2ZHOgwAMvM0FgAXPfUL3iyet0HLP7KEpbSNRw WjL5KYQiuMVoZPMocLakSRwef626JWH5TyJfYD9k Q9Ljj9P3kE7gySSwZPBrbLOcOjHoSIFoim5cqUZi VBohs8WwYRI2drL8qSDdxVJnNUKlVX84Pqyzc8Hp Iajjx0SuU05chZU1GFlth5chMQ1hHrJ7jmLeBWfq w3wijY5fJkJ7WKkbLH4bHN2gYPEevH7nxadqUKGc DcYyiiabRYVuxLcsdxZfUn8beApuUYI6MLadK2lt sF2vOuE1ITgjM2oyrT1dYVb1AYckaSX6PRCjbC2g FU0mlqfal7qqWMtmWJlzUFAqcgI9qcG3XKKvuFXi N0VliJ7wACThYC6ijrerw5wzAEA1IHmrKQMmEXR4 GhHzWICcy0Dqqdm9RgTav5PqmAYnNYskL79ju641 EETydjJyP8jpgEKrhgpegFApksfzBDvvtaM5LLLz XHBsYWluXGYxXGZzMjJcbGFuZzEwMzNcaGljaFxm RVkkJxUlKZQrXYphL3rnGcXzD1UeBFGpNiRwOXbd JRlsnYSbvCJrrAH4zQ3vXQ2mZPXujPTeV9OlAFZr nwPtnRFxEVR3aXQmyPBkJY1wPGqgqYTjy2rny9Pj S1wcpLcizSN4NS9pNTKtTEOeOUhtz7VohT8vPhcz fQPsurcbAHpovwQdARvsylcyRUUgYAtuD3wvJxLy LLYguIzzOUdds1OmJKIsIEQqJznjykXoIRq5xnMx ARLdxkifVEOueDlxkA0iJsGcVxCxUlmcZU8tIXNc I7dgpVJfRCHpBRMfY9ygDeRqpG1nmWywGBomOdFq JrKvDtUOq362sc3dWGVgyJGoikOTmZMdgL6fVUlo CUwoJCsgnREnBOdiz4uoLCVne0p3kZFxINSzmzRz z1fjXBclneTtMJIfbWPzdXUpYRBrb41sGDlfeFdu yWppVCGna7YpaQhnb1BbXuOgJLihr6DrB13haEWz cNBbyTgwSIOebrTkIKDtu16yf4urHVYdVtI8fDJx fJL0hESukZKug8WsrKinFJPjb1cbQEZlgm5ukqkt fLOxf7WavV2yraasTCjzuMMhexOcCJQap9e6dDEy EIFsHJRkAQyahKa7POCkd501xn4pqsC0zGEsFYM1 YWlsYWJsZSBhcmUgZXZhbHVhdGVkXHBsYWluXGYx XGZzMjJcbGFuZzEwMzNcaGljaFxmMVxkYmNoXGYx ONdcQ9hxBhVcY0VaZBYsLrSofGGbT0nhrAFzEOLy YWluXGYxXGZzMjPushmataha Hospital – AntlersFuZzEwMzNcaGljaFxmMVxk NjHsSUJuIHrdI8pdPdJqQ1VbZCIbStHvNSvsmHBh qryxCAzgxuEwFDliaxgiBVCbRVqgC6vuDrMbVZDe uAymTTrav8UoLLVwLMCnWxvkxdYzLZy2ppPpYPDe prmtnYTusuhcWHotxbSuXPtmuqxgEWFeIJadY8tn [file] DcbvPLN0xP== Gross assessment was performed at (test [facility] enter, code = 2777) Department of Pathology, [address] [place] [address], Technical component was performed at [facility] er, (test code = 2778) Department of Pathology, [address] [place] [id number], Professional component was performed at [facility] enter, (test code = 2779) Department of Pathology, [address] [place] [id number], [facility] [id number] 11:25:05 Test Item Value Reference Range Interpretation Comments Case Report (test code Surgical Pathology = 104) Report Case: [id number] Authorizing Provider: Shen Arellano MD Collected: 08/07/2022 11:53 AM Ordering Location: [facility] PERIOPER[facility]IVE Received: 08/07/2022 06:13 PM SERVICES Pathologist: Cong Riley MD Specimen: Parotid, Right, Right total parotidectomy DIAGNOSIS (test code = j3fhbXKcOVWmv5xbQVOpqFO 3220) uZzEwMzNcZnRuYmpcdWMxIH tccnRmMVxlcGljOTYwMlxhb lTaIDYpjOHsR8KnxeldUMjd EB1uDM5zhRqfxQQvgPWoRZO cJqHre7nag662nBQbc3ftPK VVopqtcFm9aAblD20nq9Q3R gicY80mdTOjAVD8SMJySKJw kQTeWICyPYW0CENayNUiD9q iZPPjQO4qeaizKNzsQCrcXS KojRA6ATIspLSkB3JtACJqZ HyuXREjmwf3UwUzIn9qnGQt eTcyMFxwYXJkXHBsYWluXGZ aBqTvNW6pCRNROn6TYESjWY GQF1mLDATSMEGSGDIDZb6AE VOVZ9LHFGkdkAkjFLVyGRBU Z9AKUCKBJOasDJQSHe4WKLL FIZIEDZFSX1PXYcPMINAQS1 UsIDIuNSBDTSwgQVBQRUFSU uIOFmVEMUSHS03DKXNXQShH VCIMQ2yREAMqUSzcmmYdDGR GGAACBCu5PMZHDI9YJ15aAM gPILufKu7HAKOeYMYlml73O NT4GxVdt9F8UDU8WCHrYMIm h9eoDKHfoALmGhPsPkUsNvX gVmncnPLaLSRuUeWgg5bac4 59yDSin8ijEKAzFwC0uWPjK BKlcSWeE714RMWlXBvzs0lh g4EnOHVvpEDvd4L1MWHIdct moFo2yLkpI11sq1S1FhjyM6 rnXRSnKOZiZ1ZzUY5lMNQdS av3MAM7QRV2AOYvPTAlU3Ro GF4oFAMlrZJbHPn5f4uyvRy oHSEuWBQ2d8vjIKxdgwJmTR 7inh8haSr5r6awylEqJUKpB QDzjAYQWYCdS9EhhUfgDv6c jSs1wLdwBriqGRT2Yxm5ZY9 biw28qzp7hYbyNCZnogzaEq S5LQvpDUAlecymPUh2JHvvA PWywPJ9VREdiLXzZ2TiRUKr WW4eggg1OEC5PDafWQNeXjS 9KYTwxHKkZMTfrZuqXOtjx8 26PKW1PfTmFB0lN9Aag8Q7o T5lcFAcHHMysGRzRzJbRKDk hi5lvFIyEOvel1UdTRF7zgX 8nAZgyUVsRXMeMcU6LApwVU 7hdj02BVMtFOL6dj3xySExe QenqmIksPPlDOgqF4JoUQLb o378CKWyQ9LgTLWeg6V7wtE lDwGtVZKgqRW6juC3AOViAT 3bxnpxa5agMMpjORfmJXDnl aE6gqX2RJSqqLNrQ4JgjW5t BVUpET5jwrdth9tuRKA6YZn aXSXiRFS9TzTjORZam0Mrvh p6KsBhl0BxgCPxYMalA61an 353LVIxqiMxP8ghkGFjqlzb lEXkwxesYBadfvL4EBBgMNu caeguLBBjYSnsD1yrIvIqRO QuaEydJHngl6XpYMZrGEJrG oExlECwAONsUpz8QBPjePAr BYDjGlArM6ayqrytQtHDYOJ ga1vxN4rnfTTRnPQeP5BwPD apmxWaAIktPArqTfOmYWh5F V57HgHyUDAnmj06 COMMENT (test code = a2yinPIjBXEbwBR7TcWmQVF 3359) qp8unm2BvsSVfpSLiXBclqN AmqwJcsc10hVL3fT32SB0nH TUwOkD9CGQszyP2Pmf8OWRe AMLtrEKpZ664t2mfw6xjreK ygXD0uRnvIWPnudwfMjC8WI fuZIFzfzfnSUb6KCstLVBle PE7OWGqtYLdB4IfYQUuMN9p zvg4YSL2YYxuJQPnDvL9EWS swHDbTCBzmWnxWKkpb708NX M0XrSqUTHxuqXzlNapkP9qC eMtJBIiJiPhYL8sPDAEFXLl Zf5iSOokn0AjhcvrwKcshMn pD2t3JMRqa1Afi3seHRQwsE xzIGFuZCBBRTEvQUUzIGhpZ 8cqsJhlvBMdfWEacB5umFQj RRwcmb8aPZByXXLakAGjoP0 utCFwsaRweU0mr9Kkq50gjR TbDMyogkTalzMwWuT8XD4xX VAxkyjqEDHna5sjYMQmVRC3 EVFmWIVeiPOtSDYrMYKzx0w 2fMQedZyepD2gSdFqTIgkxU ChV7LujCTkFJQcjh8= CPT Code(s) (test code w8mubVStWDIsmGP7OuTkVET = 3357) un1unp2YxkTYgxHFgOOhmxW PnzaIdkb20vBC1pO05XB2nS IPjYtN5VLSzhwN4Ogb7MABd XGLwoOJgU110n9ilx9cxmpJ raXT5lTpyRZTbliroDeA0XX nsYKYxwcakKHl9BHmlSPKjc HR2DIUzeBRtU2LsQFJqRR0p ywv6FQR1IDfbMWOkFkL9BBV yuISrQCGycLbzJUkle824ZE J0TcPgKREoinWkqKnxbL5fE yYdIXL2DFGmZyxlMYsvQTSs YRg7KyYlXIhyTTwnGCM5 GROSS DESCRIPTION g0amuXHcJKBafQUTBBEnB6q (test code = kfzNfYNEftQVmO1MokkbdKA [id number]) cfYA5xRU4brOsihXJbwUKgN F4XNSPwRgWkGWBirGJlqxBo KqJvIVLmjBDvcJE9PCLcLJ9 ghgyfDAnqPPcyZOMqnzW0PX LriWJgN6VaBTPnNL1thwlzA NP7WYcykW1eodYXSxnoUv0g dHRibHtcZjFcZmNoYXJzZXQ eGIDifHoaDTKjBQd7jY1UDc qiPPX7QMPELrddOGOwRV7Fi 3avMXNrtQBoNPE1TFjzxOTr IVZxAKYeTQq2CFByOOxfmGI uJC2omUxmZoyauWlco8SjsE BcXGlkIDUxMDAyIFxcZGIgI A0WMvUdIOBcAej4AufqZTe2 DBp9XF7VDsRqYLAqBXW2Dxt aWWClYYj9FOcsUQ3LMXN6FC wdCZK1KCN8FEO3FSCtETThA iBcXGYgQXJpYWwgXFxmbCBc UL3gjJwtaANsggILAoIJYIE sqIgrTGOFzQkkeT8cqDWgDU 5FMPDmwEOIVER4EX6tABRYB ikgiLBgQKZyuAclUBujoK0b OH9MCDe2yvHdULCaSbOxHrX wELt5LEJhLmXfr3ciTHesPu VsZWQgdGhlIHBhdGllbnQnc pZxSQ3sOBTHRs3onlVjKiVg OAIwCNQlrhnrjXHycG25FJi isFNzf0YdHSSczB2rcGVmY5 0ez5gcxWTnk8HeBRS2JH4sE jBur37jVNxmGlPbSTEnDXzi dB7zxryjalVoPKYyKUDdaCy mHMicRH6rAFquHjZnhSNpKh KnkRObGiMvI10qTGijJkmiJ yksIHRoZSBvdXRlciBzdXJm GMGkteRbmiOsaD7qZLCnZpq 6PNghl7QfyDfzbvxpGvPsjB 66pdStTVYsua9etZ1dJVM0O RafZQNxM2Kxk4FxLXFdUIfw A4IwlUVfcYq6KNinvH5ekas vC7bbLJziz0toajuuNXZ4dV XatohwiZqvBVEtd7Ask2Vll S4mfwildaWiQAEhotzgTMPw PDGtT9Xgr95ynSUmD5muUZB lBTRxrMCfscahKs02MMahDJ 38RLwpUJ2zQXCnZvIvLLvfK HNwZWNpbWVuIGlzIGVudGly DBk7EFDeQFWkVEH0YE40dBX tbQdxp7VchBa2vMOdINnfUH IxUUF7QMH7dEJiXTive5hqy jFrmxRhsG4ib5UgKFQhUGWb OKGrYSCsgd2ea0i9RMDchP2 8w3o5OSAriL2nHdlrV9fqAG W6ZSM3DHXjogGPNhtfGWXaG QpaYXJhIFVkZGluLCBNSFMu AOftsZofnG3fMLDeP51dk2D Il6UoFDFqIZlbv2cewXopp3 VjdGVuZFxwYXJccGFyZFxzb R0bSyLnz8zgbYq3AZwfqeZ3 XOWhei1HAscyvM3tAvHpj8b kyWd2LJOOKosxywY7h6cpnA uwb6FywCBvDK7VQp0= SPECIAL STUDIES (test w4havGYzNLJfw3kbTDMlgBG code = 3376) uZzEwMzNcZnRuYmpcdWMxIH kfvmUmEPvjj5ZpF1RuTgPvM FxhbnNpXGRlZmxhbmcxMDMz WMS2hiDaKDHnAMsnDIHcDTj tPp6wqEBvcVnyMxAeEGBqv2 xfxpESngjnvSt6g8qdKGOaX aE0oGOzXHjhT8wyxnGtzOHx V8McrVVxiGj5h0hxCkBwVpF 2iJTiHQvyU5atzuFdtKXuCX KdMNu2wQ08RNRvwN5icMGpH AjpdnFhLrC1OWcdLNJaKqZ6 ZTVleHHsCEDlS2jjFQKeKAa zZMTaPUsgyREpOUU8iWzad2 F4tGLmpDVrcMmdQiJjEbHxU mWIk4ApWYe1nCrdO9AyGUUo KzL9jSAzUEIdSRqlRKPuECX ktzI5vLzujpAek63paEPbFJ YwXGZzMjBcbGkwXHJpMCBDb 5PaaRrvLRD3aNz9cWmnHhmr MSU1Aju1BG8nor05jir8xSq mLIJocweoEdE4IFyqOTJadi odYXb4GKwrGBBgsTE2ISSle ZQmW5SaIOUfHM5rtcj8FHY8 HNnnOQMnVfG9FELrnHTbEIO psXzvZZjgu709NYJ0CeBiZA 5lM9Fak6F3dE7yoQCnXQRcu DMuPmUdLELsun4jhIPnQGhx d0WrNCA0cfD3lXDtzXUyZWF hNN63Cgcgc1SmPotqm5CnZ4 3lbES2DObki5mjRU2pHzD4q mArEQviz3vniU9cIyK1ANto UJ4lKQ8qSSEwmD9eztnqNYE nYnJkcmhlYWRccGdicmRyZm 4viIrfFPB5JLyjB7zseL9qX sY5SCllY1xfiZ6jGMd0VKrw dMC2FDFdvY0gOD0cgcldl2o uBNxbNAbyUIQfvrJ3xgF6YP XcxZEeS6NyyT7xPSCtHU0pp axeh0rqXPZ9CXkoVEBhYHG9 YvMuBHCng8Irryu9FjIxk8B umXWcXZceA99mk484PMNfcw ZcH0kgpYSafwjefOEoqhegV IitraI0NOYiKRPtSQtrXSNf XGZzMjJcbGFuZzEwMzNcaGl jaFxmMVxkYmNoXGYxXGxvY2 ctHkBtS1LtFJZsClKyLBtbT XtosXVhxRCpvZT5vG8mLF8o AGQczQSeD3HzXGUccoUdhPB hADD7gFRreQFmVS5qPOrtmD Hak8ebo7MrZ5aebSkarMV7E O4jSYMzSQToYRjoz8RrmA2w LlxwbGFpblxmMVxmczIyXGx ssfvdABCtGVquP3xrWyYaKD FrdLkwKRikl9EnNVPqRHKyQ yktohHgQNc3rwTmIKPmqxyz IAHwrBsvtW0dNlHfJiEpXuw lIO1pJQWpM6zlzVAsCGRaCX UnX5xyDkRevB0paQsfCWmqQ gTmUqObQmXSz210hd2iMIXr hYVcsaMGtFNshX5mTQbhQAg yEWzgrWNfNFjcx5ttGJThw2 w7sGCnIRIlkqBjr9epOIjuv iCgEPEkdHAtcBBzWURay93s QDbqtRtwnDqpQDThm2YxvTj qq2FgSaRdPVruj3ZkU00udQ JvbCBzbGlkZXMgcnVuIGFsb 04on3ssZDNgBnZ3aPNhsIB7 fXNyeKTgr4MtjWhzSBBmw7b kFPIbof1dfvgmcZPqb6ZdcJ 5pbmcuIEludGVybmFsIHBvc 7u2rKDyVUNxYTWgBCwquDl9 EXQeq342hr8dfcN1vLBdRNT 2YWlsYWJsZSBhcmUgZXZhbH VhdGVkXHBsYWluXGYxXGZzM jJcbGFuZzEwMzNcaGljaFxm LBmeYfVnEMVvJZenV4fqGlT hL5VfEMEwCoHjsRXlE0dudI FyXHBsYWluXGYxXGZzMjJcb GFuZzEwMzNcaGljaFxmMVxk ZpOmSTWfMEmzH7bkShJwO7M yXGZzMjIgIFxwbGFpblxmMV xmczIyXGxhbmcxMDMzXGhpY 8ypMvVwZERqiNqnGPkpx0Kw SMHmUMWtIspjizVxKIb9vaC oXHBhclxwbGFpblxmMVxmcz WlENbxoqmwDIHyXJtqZ6pxZ zLqQUZkyKubLDjdp7KdRTWm TPPeNhxxjqIuGItruEPel8d ck7ZiT1wfwIvtrXA6PILaD0 fudHFndBO9BHB4aA9bECbcb cLuEBQqj7GaAISaNHEnNhI3 tO7sAPV2IfZNvUerELWiSSv uXGYxXGZzMjJcbGFuZzEwMz NcaGljaFxmMVxkYmNoXGYxX ZmlS7kkQnIpI9AaZPGbElKh xDyfHYryGQn6MfqutOTbnwf mMVxmczIyXGxhbmcxMDMzXG lfT9wcMwBoAQCnoGxqIDqth 2NoXGYxXGNmMlxmczIyIHMg BXPnhOEyeNACTT31YJQfNFZ hbRqmcT3tyXLAONNdbvN8r5 A8JMbbUNStDWn6OJqedoQtY JLyjA6iUFFjBB2xBOk1uaSh MHSfu0TqAO6sQNIwgVTaXHG 1UFCov0ZaH7Uoa4LcLOVkQL Emsu2mrvBlTrYClHEgBGZiy q40IGOqZN4eI9hwZIWvVUHy wgZitQVad9EhZFLarNP7oKA mKC4NYiYJs21vTGJbQLPOln IlMXQvmXjnpJL6yuP4mP1qF iBUaGUgRkRBIGhhcyBkZXRl ed5fvqGmLQBmJGJae2QxiBZ cgDZzloArM3Vkf4RaKBBhto 91PHhmnXDvjr18WQ2xT7Jug 6RrgJ0vPHzhUHCvm8YdoNWa kMNsDDSrh9LlG6juexwzSWx tkXDxjD1fLHAjLHm6LWHcn2 MpZYVki5YuCpBeibYcLENhV VOqLOVpuI89MUV2qGfpkWel tnUoMX6qMWOlqgMdMUHsKNU etE8yFQxrytYvMKJozfN3v8 R7VTqqMYMvpbXuFtymCLC6d rLbzjZ8wFXzP6jngksbURhs LIMcr5LueG3yaUAOqUVux0X vcWEhwMAKnOZxBJ0zctSlEW 7qERA8WHqtUOCMVECtVXfbM KBdHCA5AApeYhmkRHS1ufWg KMQtf5WcFGhcA9fgL12mtBs ymZv1yIGhjBbrtJVwrAIwMO IracN5v4Q4IIDoz2IuytjcR HBsYWluXGYyXGZzMjJcbGFu ZzEwMzNcaGljaFxmMlxkYmN tQXYaNVzyL0szMqYsPsXdTq qbEQU8oX== Gross assessment was [facility]. Ashton's performed at ([facility], code = 2777) Department of Pathology, [address] [place] [address], Technical component [facility]. ke's was performed at ([facility], code = 2778) Department of Pathology, [address] [place] [address], Professional component [facility]. Ashton's was performed at ([facility], code = 2779) Department of Pathology, [address] [place] [address], [id number] 11:25:05Surgical Pathology Report Case: [id number] Authorizing Provider: Shen Arellano MD Collected: 08/07/2022 11:53 AM Ordering Location: [facility] PERI[facility] Received: 08/07/2022 06:13 PM SERVICES Pathologist: Cong Riley MD Specimen: Parotid, Right, Right total parotidectomy A. 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 Signing Pathologist Direct Phone Line: [phone] signed by Cong Riley MD on 08/14/2022 at 11:25 AMp63 and SMA (focal weak) highlight basaloid cells and AE1/AE3 highlights luminal cells. S100 is positive in stromal cells and beta-catenin shows scattered nuclear positivity in basaloid cells.46606, 41917, 51093 x 4A. Parotid, Right.Received fresh, labeled the patient's name, MRN number and "right total parotidectomy" consists of a ch-brown, lobulated, unoriented parotid gland (3.5 x 2.5 x 1.1 cm, 7.78 g), the outer surfaces are inked blue, sectioning shows a ch-pink, well encapsulated, centrally hemorrhagic lesion, abutting the closest unoriented inked resection margin, measuring 2.5 x 1.8 x 1.0 cm. The specimen is entirely and sequentially submittedin A1-A9, with lesion in blocks A1-A5, and grossly uninvolved in blocks A6-A9KRYSTIAN Moya.The inte rpretation of this case included the use of immunohistochemistry or special stains.Control Slides Examined: In-house known positive controls were evaluated along with the test tissue. These control slides run alongside of the patients sample show appropriate staining. Internal positive and negative controls when available are evaluated Immunohistochemistry technical testing was performed at [facility], Pathology Laboratory where it was developed and its performance characteristics were determined. It has not been cleared or approved by the U.S. Food and Drug Administration. The FDA has determined that such clearance or approval is not necessary. The test is used for clinical p urposes. It should not be regarded as investigational or for research. This laboratory is certified under the Clinical Laboratory Improvement Amendments of 1988 (CLIA-88) as qualified to perform high complexity clinical laboratory testing.[facility], Department of Pathology, [address] [place] [id number], [facility], [address] [place] [address], [facility], [facility], [address] [place] [address], [place] [address], Dkxljmho (non-gynecological) [id number] 14:13:52 Test Item Value Reference Range Interpretation Comments Case number (test code = [id number]) Cytology See link below for (non-gynecological) PDF Lab Report report (test code = 1178) Result status (test code This is Final Report = [id number]) [id number] [facility] [id number] 14:13:52 Test Item Value Reference Range Interpretation Comments Case number (test code = [id number]) Cytology See link below for (non-gynecological) PDF Lab Report report (test code = 1178) Result status (test code This is Final Report = [id number]) for [id number] [facility] [id number] 14:13:52 Test Item Value Reference Range Interpretation Comments Case number (test code = [id number]) Cytology See link below for (non-gynecological) PDF Lab Report report (test code = 1178) Result status (test code This is Final Report = [id number]) for [id number]
[2023-01-13] MEDS ORDERED: ONDANSETRON 4 MG/2 ML VIAL ONE (14:58)
[2023-01-13] MEDS ORDERED: MORPHINE 4 MG/ML SYR ONE (14:58)
[2023-01-13] MEDS ORDERED: LIDOCAINE HCL JELLY 2% 6 ML SYRINGE TOP ONE (14:58)
[2023-01-13 15:07] LABS: Absolute Lymphocytes (CBC) 3.1 K/uL (0.7-4.9); Hematocrit 50.6 % (36.0-45.0); Lymphocytes % 27.1 % (15.3-44.8); MCV 92.7 fL (80-100); RBC Red Blood Cell Count 5.46 M/uL (3.86-4.86)
[2023-01-13 15:19] LABS: Albumin 3.2 g/dL (3.4-5.0); Bilirubin Total 0.3 mg/dL (0.2-1.0); Potassium 3.8 mEq/L (3.5-5.1); Protein, Total 7.6 g/dL (6.4-8.2)
--- NOTE | 2023-01-13 15:59 | RAD REPORT ---
EXAM DESCRIPTION: CT - Pelvis W/Cont - 01/13/2023 3:51 pm CLINICAL HISTORY: abscess, r/o deeper pelvic abscess Pelvic pain. COMPARISON: <Comparisons> TECHNIQUE: All CT scans are performed using dose optimization technique as appropriate and may inclu de automated exposure control or mA/KV adjustment according to patient size. FINDINGS: No pelvic abscess seen. 4 cm right ovarian cystic lesion likely present. No free fluid or mass in the pelvis. No hematoma. There is evidence of a 2 cm abscess in region of the left vaginal lip. IMPRESSION: Vaginal abscess subcutaneous fat measuring 2 cm. No deeper pelvic abscess.
[2023-01-13] MEDS ORDERED: FENTANYL CITR 100 MCG/2 ML ONE (16:28)
--- NOTE | 2023-01-13 17:08 | ER ---
Nurse's Notes [facility] Name: Margo Moise Age: 62 yrs Sex: Female : 1960 Arrival Date: 01/13/2023 Time: 14:20 Bed 8 Private MD: Diagnosis: Continuous abscess to mons pubis;Hyperglycemia Presentation: 01/13 14:27 Chief complaint: Patient states: she has what she believes to be an abscess on her ap3 pubic mound area. patient states her pain is currently a 10/10 on the pain scale. Coronavirus screen: At this time, the client does not indicate any symptoms associated with coronavirus-19. Ebola Screen: No symptoms or risks identified at this time. Initial Sepsis Screen:. Risk Assessment: Do you want to hurt yourself or someone else? Patient reports no desire to harm self or others. Onset of symptoms was January 11, 2023. 14:27 Method Of Arrival: Wheelchair ap3 14:31 Initial Sepsis Screen: Does the patient meet any 2 criteria? No. Patient's initial ap3 sepsis screen is negative. Does the patient have a suspected source of infection? Yes: Skin breakdown/wound. 14:31 Acuity: NING 3 ap3 Triage Assessment: 14:30 General: Appears uncomfortable, Behavior is calm, cooperative, appropriate for age. ap3 Pain: Complains of pain in groin Pain currently is 10 out of 10 on a pain scale. Pain began gradually, 2-3 days ago. Neuro: Level of Consciousness is awake, alert, obeys commands, Oriented to person, place, time, situation. Cardiovascular: Patient's skin is warm and dry. Respiratory: Airway is patent Respiratory effort is even, unlabored, Respiratory pattern is regular, symmetrical. Derm: Parent/caregiver reports the patient having abscess in pubic region. Historical: - Allergies: 14:28 Latex, Natural Rubber; ap3 - PMHx: 14:28 Hypertensive disorder; Depressive disorder; Anxiety; elevated white count; elevated red ap3 blood count; - Immunization history:: Client reports having NOT received the Covid vaccine. - Social history:: Smoking status: Patient reports the use of cigarette tobacco products, smokes one-half pack cigarettes per day. - Family history:: not pertinent. Screenin:31 Abuse screen: Denies threats or abuse. Nutritional screening: No deficits noted. ap3 Tuberculosis screening: No symptoms or risk factors identified. Assessment: 14:45 General: Appears in no apparent distress. Behavior is calm, cooperative. Pain: iw Complains of pain in groin. Neuro: Level of Consciousness is awake, alert, obeys commands, Oriented to person, place, time, situation, Moves all extremities. Full function. Cardiovascular: Patient's skin is warm and dry. Respiratory: Respiratory effort is even, unlabored, Respiratory pattern is regular. Derm: Abscess located on mons pubis is quarter sized. Musculoskeletal: Range of motion: intact in all extremities. 15:45 Reassessment: Patient appears in no apparent distress at this time. No changes from kc6 previously documented assessment. Patient and/or family updated on plan of care and expected duration. Pain level reassessed. Patient is alert, oriented x 3, equal unlabored respirations, skin warm/dry/pink. Vital Signs: 14:31 BP 96 / 67; Pulse 83; Resp 19; Temp 98.9; Pulse Ox 95% ; Weight 107.95 kg; Pain 10/10; ap3 16:06 Pulse 73; Resp 17 S; Pulse Ox 96% on R/A; kc6 14:31 Pain Scale: Adult ap3 ED Course: 14:21 Patient arrived in ED. ts1 14:31 Clayton Merritt MD is Attending Physician. rt 14:32 Triage completed. ap3 14:32 Arm band placed on left wrist. ap3 14:45 Janay Claudio, RN is Primary Nurse. iw 14:56 CMP Sent. kc6 14:57 CBC with Diff Sent. kc6 14:57 Inserted saline lock: 20 gauge in right antecubital area, using aseptic technique. kc6 Blood collected. 14:58 Radiology exam delayed due to lab results not completed at this time. (BUN/Creatinine). jg10 15:53 CT Pelvis w cont In Process Unspecified. EDMS 17:37 Assist provider with I \T\ D: of an abscess on Set up I\T\D tray. Performed by Janay Claudio truck caterer packed. Patient tolerated well. Administered Medications: 15:01 Drug: morphine IVP or IV 4 mg Route: IVP; Infused Over: 4 mins; Site: right antecubital;iw 16:00 Follow up: Response: No adverse reaction iw 15:01 Drug: Ondansetron IVP 4 mg Route: IVP; Site: right antecubital; iw 15:01 Drug: Lidocaine Mucous Membrane Gel 2 % 1 application Route: Mucous Membrane; iw 16:39 Drug: fentaNYL (PF) IVP 50 mcg Route: IVP; Site: right antecubital; iw 17:00 Follow up: Response: No adverse reaction; Pain is decreased iw Medication: 14:46 VIS not applicable for this client. iw Outcome: 17:07 Discharge ordered by . rt 17:38 Discharged to home with family. iw 17:38 Condition: good 17:38 Discharge instructions given to patient, family, Instructed on discharge instructions, follow up and referral plans. medication usage, Demonstrated understanding of instructions, follow-up care, medications, Prescriptions given X 3. 17:38 Patient left the ED. iw Signatures: Dispatcher [employer] EDJanay Morataya RN RN iw Ashli Hale RN RN [id number] Luciana Brown RN RN 6 [facility] [place] Clayton Merritt MD MD rt Bee Ireland PAS PAS ts1 Corrections: (The following items were deleted from the chart) 14:30 14:28 Allergies: No Known Allergies; ap3 ap3
--- NOTE | 2023-01-13 17:08 | EDPHYS ---
Physician Documentation [facility] Name: Margo Moise Age: 62 yrs Sex: Female : 1960 Arrival Date: 01/13/2023 Time: 14:20 Bed 8 Private MD: ED Physician Clayton Merritt HPI: 01/13 18:39 This 62 yrs old Female presents to ER via Wheelchair with complaints of ABCESS. rt 18:39 Patient presents to the ED with reported abscess to the mons pubis. Has been present rt for several days. It has been worsening. Patient denies any drainage, fever, chills. Denies other acute complaints at this time. Pain is aching nature, nonradiating, no other aggravating or alleviating factors.. Historical: - Allergies: 14:28 Latex, Natural Rubber; ap3 - PMHx: 14:28 Hypertensive disorder; Depressive disorder; Anxiety; elevated white count; elevated red ap3 blood count; - Immunization history:: Client reports having NOT received the Covid vaccine. - Social history:: Smoking status: Patient reports the use of cigarette tobacco products, smokes one-half pack cigarettes per day. - Family history:: not pertinent. ROS: 18:39 Constitutional: Negative for fever, chills, and weight loss, Cardiovascular: Negative rt for chest pain, palpitations, and edema, Respiratory: Negative for shortness of breath, cough, wheezing, and pleuritic chest pain, Abdomen/GI: Negative for abdominal pain, nausea, vomiting, diarrhea, and constipation, : Negative for injury, bleeding, discharge, and swelling, Skin: Negative for injury, rash, and discoloration, Neuro: Negative for headache, weakness, numbness, tingling, and seizure, Psych: Negative for depression, anxiety, suicide ideation, homicidal ideation, and hallucinations. 18:39 Skin: Positive for abscess, Negative for cellulitis. Exam: 18:39 Constitutional: This is a well developed, well nourished patient who is awake, alert, rt and in no acute distress. Head/Face: Normocephalic, atraumatic. Chest/axilla: Normal chest wall appearance and motion. Nontender with no deformity. No lesions are appreciated. Cardiovascular: Regular rate and rhythm with a normal S1 and S2. No gallops, murmurs, or rubs. Normal PMI, no JVD. No pulse deficits. Respiratory: Lungs have equal breath sounds bilaterally, clear to auscultation and percussion. No rales, rhonchi or wheezes noted. No increased work of breathing, no retractions or nasal flaring. Abdomen/GI: Soft, non-tender, with normal bowel sounds. No distension or tympany. No guarding or rebound. No evidence of tenderness throughout. MS/ Extremity: Pulses equal, no cyanosis. Neurovascular intact. Full, normal range of motion. Neuro: Awake and alert, GCS 15, oriented to person, place, time, and situation. Cranial nerves II-XII grossly intact. Motor strength 5/5 in all extremities. Sensory grossly intact. Cerebellar exam normal. Normal gait. Psych: Awake, alert, with orientation to person, place and time. Behavior, mood, and affect are within normal limits. 18:39 Skin: 2 cm abscess to the mons pubis, no active drainage, no surrounding erythema.. Vital Signs: 14:31 BP 96 / 67; Pulse 83; Resp 19; Temp 98.9; Pulse Ox 95% ; Weight 107.95 kg; Pain 10/10; ap3 16:06 Pulse 73; Resp 17 S; Pulse Ox 96% on R/A; kc6 14:31 Pain Scale: Adult ap3 Procedures: 18:39 I \T\ D: Incision and drainage was performed for an abscess of the mons pubis Prepped rt with Betadine, Anesthetized with Topical lidocaine. Incised with #11 blade. Drained moderate amount Dressing: sterile 4x4 gauze, the patient tolerated the procedure well. MDM: 14:36 Patient medically screened. rt 18:39 Differential Diagnosis Sepsis, deep space abscess, Shannon's gangrene. Data reviewed: rt vital signs, nurses notes, lab test result(s), radiologic studies. I considered the following discharge prescriptions or medication management in the emergency department Medications were administered in the Emergency Department. See MAR. Independent interpretation of the following test(s) in the Emergency Department CT Scan: My interpretation is cutaneous abscess identified on interpretation of the CT scan images. Counseling: I had a detailed discussion with the patient and/or guardian regarding: the historical points, exam findings, and any diagnostic results supporting the discharge/admit diagnosis, lab results, radiology results, Discussed findings with hyperglycemia with the patient, will start on metformin, patient to follow-up as an outpatient.. Response to treatment: the patient's symptoms have markedly improved after treatment. 01/13 14:48 Order name: CBC with Diff; Complete Time: 15:24 rt 01/13 14:48 Order name: CMP; Complete Time: 15:24 rt 01/13 16:27 Order name: Wound Culture rt 01/13 14:48 Order name: CT Pelvis w cont; Complete Time: 16:09 rt Administered Medications: 15:01 Drug: morphine IVP or IV 4 mg Route: IVP; Infused Over: 4 mins; Site: right antecubital;iw 16:00 Follow up: Response: No adverse reaction iw 15:01 Drug: Ondansetron IVP 4 mg Route: IVP; Site: right antecubital; iw 15:01 Drug: Lidocaine Mucous Membrane Gel 2 % 1 application Route: Mucous Membrane; iw 16:39 Drug: fentaNYL (PF) IVP 50 mcg Route: IVP; Site: right antecubital; iw 17:00 Follow up: Response: No adverse reaction; Pain is decreased iw Disposition Summary: 01/13/23 17:07 Discharge Ordered Location: Home rt Problem: new rt Symptoms: have improved rt Condition: Stable rt Diagnosis - Continuous abscess to mons pubis rt - Hyperglycemia rt Followup: rt - With: Private Physician - When: 2 - 3 days - Reason: Discharge Instructions: - Discharge Summary Sheet rt - Skin Abscess rt - Hyperglycemia rt Forms: - Medication Reconciliation Form rt - Thank You Letter rt - Antibiotic Education rt - Prescription Opioid Use rt Prescriptions: - acetaminophen-codeine 300-30 mg Oral tablet - take 1 tablet by ORAL route every 6 hours; 15 tablet; Refills: 0, Product rt Selection Permitted - Doxycycline Hyclate 100 mg Oral Tablet - take 1 tablet by ORAL route every 12 hours; 20 tablet; Refills: 0, Product rt Selection Permitted - Metformin 500 mg Oral Tablet - take 1 tablet by ORAL route once daily for 7 days Then take 1 tablet with rt morning meals AND evening meals; 60 tablet; Refills: 0, Product Selection Permitted Signatures: Dispatcher [employer] Janay Santana RN RN iw Prokisch, Amanda, RN RN ap3 Clayton Merritt MD MD rt Corrections: (The following items were deleted from the chart) 14:30 14:28 Allergies: No Known Allergies; ap3 ap3
[2023-01-13 18:08] VITALS: BP 96/67; TEMP 98.9; O2SAT 95
== END 2023-01-13 17:38 | disposition home or self-care (01) ==
LOC: ER 14:20
DX: L02.215 Cutaneous abscess of perineum (principal); R73.9 Hyperglycemia, unspecified; F17.210 Nicotine dependence, cigarettes, uncomplicated; Z91.040 Latex allergy status; Z91.048 Other nonmedicinal substance allergy status
CPT/HCPCS: 87070; 85025; 36415; 87205; 80053; 72193; Q9967; J3010; J2405

== ENCOUNTER → 2023-09-13 | Emergency (ER) | payer OTHER ==
[~2023-09-13] MED LIST: HYDROCODONE/APAP 5/325 MG TAB ONE
--- OUTSIDE RECORDS SUMMARY | 2023-09-13 11:45 | XMS REPORT | Clinical Summary ---
Author Name Unknown Organization [facility] Address [address] [place] [address] Care Team Providers Care Paster Hat Lining Name Role Phone Svetlana Talamantes MD Unavailable [phone] Nick Morris MD Primary Care Provider [phone] Allergies Active Allergy Reactions Criticality Noted Date Comments Adhesive Tape-Silicones Rash Medium 06/12/2022 Please use blue tape when doing IVs Latex Dermatitis,Rash Low 08/07/2022 Medications Medication Sig Dispensed Refills Start Date End Date Status valsartan-hydrochlor othiazide (DIOVAN-HCT) 160 mg-12.5 mg per tablet Take 1 tablet by mouth daily. 0 Active metoprolol succinate (TOPROL XL) 50 mg 24 hr tablet Take 1 tablet (50 mg) by mouth daily. 0 Active metFORMIN (GLUCOPHAGE) 500 mg tablet Take 1 tablet (500 mg) by mouth 2 (two) times a day with meals. 0 01/18/2023 Active semaglutide (OZEMPIC SUBCUTANEOUS) Inject 0.5 mg under the skin once a week. 0 Active eszopiclone (LUNESTA) 2 mg tablet Take 1 tablet (2 mg) by mouth nightly as needed. 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 Ovarian cyst of right side 02/02/2022 Depressive disorder 03/05/2018 Mixed hyperlipidemia 12/24/2015 Erythrocytosis 02/02/2015 Hypertension 02/02/2003 Rapid heart beat 02/02/2001 Anxiety 02/03/1976 Encounters Date Type Department Care Team Description 07/12/2023 12:00 PM SUSTAINABILITY ENGINEER Telemedicine [facility] [address] [place] [address], 6th [place] [address] Nick Morris MD Leukocytosis, not otherwise specified; Erythrocytosis 03/22/2023 Orders Only [facility] [address] [place] [address], 6th [place] [address] Nick Morris MD Leukocytosis, not otherwise specified (Primary Dx); Erythrocytosis 02/08/2023 12:50 PM CDT - 02/08/2023 11:59 PM CDT Hospital [facility] [address] [place] [id number] Nick Morris MD Leukocytosis, not otherwise specified; Erythrocytosis Discharge Disposition: Home 02/08/2023 12:49 PM CDT [facility] [address] [place] [address] Nick Morris MD Leukocytosis, not otherwise specified; Erythrocytosis Discharge Disposition: Home 02/08/2023 10:30 AM CDT Office Visit [facility] [address] [place] [address], 6th [place] [address] Nick Morris MD Leukocytosis, not otherwise specified (Primary Dx); Erythrocytosis 02/08/2023 Travel 12/24/2022 3:00 PM CDT NPR [facility] PATIENT ACCESS Nick Morris MD after 09/13/2022 Medical History Medical History Date Comments Type 2 diabetes mellitus without complication Hypertension Osteoarthritis Tobacco use Obese Social History Tobacco Use Types Packs/Day Years Used Date Smoking Tobacco: Never Assessed Sex and Gender Information Value Date Recorded Sex Assigned at Not on file Gender Identity Not on file Sexual Orientation Not on file Job Start Date Occupation Industry Not on file Not on file Not on file Obstetrics History Last Filed Vital Signs Vital Sign Reading Time Taken Comments Blood Pressure 112/76 02/08/2023 10:48 AM CDT Pulse 78 02/08/2023 10:48 AM CDT Temperature 36.5 C (97.7 F) 02/08/2023 10:48 AM C DT Respiratory Rate 18 02/08/2023 10:48 AM CDT Oxygen Saturation 94% 02/08/2023 10:48 AM CDT Inhaled Oxygen Concentration - - Weight 105.8 kg (233 lb 4 oz) 02/08/2023 10:48 A M CDT Height 153.5 cm (5' 0.43") 02/08/2023 10:48 AM C DT Body Mass Index 44.9 02/08/2023 10:48 AM CDT Plan of Treatment Upcoming Encounters Date Type Department Care Team Description 12/13/2023 6:45 AM CDT Appointment [facility] [address] [place] [address] Nick Morris MD [facility] [place] [address] 12/13/2023 8:45 AM CDT Office Visit [facility] [address] [place] [address], 6th Floor Elev[address] [place], [place] [phone] Nick Morris MD [address] [place] [address] [phone] Health Maintenance Due Date Last Done Comments COVID-19 Vaccination (#1) 03/16/1961 Procedures Procedure Name Priority Date/Time Associated Diagnosis Comments ZULEMA SULLIVAN ENDLEUKEMIA MUTATION PANEL V1 INTERPRETATION AND REPORT Routine 02/08/2023 1:28 PM CDT ZULEMA SULLIVAN KIT MUTATION DETECTION IN MAST CELL DISEASE ANALYSIS INTERPRETATION AND REPORT Routine 02/08/2023 1:28 PM CDT ZULEMA SULLIVAN ABL1 KINASE DOMAIN MUTATION ANALYSIS (QUALITATIVE) INTERPRETATION AND REPORT Routine 02/08/2023 1:28 PM CDT ZULEMA SULLIVAN T(9;22) BCR/ABL1 QUANTITATIVE PCR INTERPRETATION AND REPORT Routine 02/08/2023 1:28 PM CDT FRACTIONATED BILIRUBIN Routine 1:28 PM CDT Leukocytosis, not otherwise specified Erythrocytosis TOTAL PROTEIN Routine 02/08/2023 1:28 PM CDT Leukocytosis, not otherwise specified Erythrocytosis ASPARTATE AMINOTRANSFERASE Routine 02/08/2023 1:28 PM CDT Leukocytosis, not otherwise specified Erythrocytosis ALANINE AMINOTRANSFERASE Routine 023 1:28 PM CDT Leukocytosis, not otherwise specified Erythrocytosis ALKALINE PHOSPHATASE Routine 02/08/2023 1:28 PM CDT Leukocytosis, not otherwise specified Erythrocytosis ALBUMIN LEVEL Routine 02/08/2023 1:28 PM CDT Leukocytosis, not otherwise specified Erythrocytosis CALCIUM LEVEL Routine 02/08/2023 1:28 PM CDT Leukocytosis, not otherwise specified Erythrocytosis .GLOMERULAR FILTRATION RATE Routine 02/08/2023 1:28 PM CDT Leukocytosis, not otherwise specified Erythrocytosis SERUM CREATININE Routine 02/08/2023 1:28 PM CDT Leukocytosis, not otherwise specified Erythrocytosis ELECTROLYTE PANEL Routine 02/08/2023 1:2 8 PM CDT Leukocytosis, not otherwise specified Erythrocytosis BLOOD UREA NITROGEN Routine 02/08/2023 1 :28 PM CDT Leukocytosis, not otherwise specified Erythrocytosis GLUCOSE LEVEL Routine 02/08/2023 1:28 PM CDT Leukocytosis, not otherwise specified Erythrocytosis DIFFERENTIAL Routine 02/08/2023 1:28 PM CDT Leukocytosis, not otherwise specified Erythrocytosis .CBC Routine 02/08/2023 1:28 PM CDT Leukocytosis, not otherwise specified Erythrocytosis HEPATITIS C VIRUS ANTIBODY Routine 02/08/2023 1:28 PM CDT Leukocytosis, not otherwise specified Erythrocytosis ZULEMA SULLIVAN ASXL1 COLLECTION, BLOOD Routine 02/08/2023 1:28 PM CDT Leukocytosis, not otherwise specified Erythrocytosis ZULEMA SULLIVAN CALR MUTATION ANALYSIS COLLECTION, BLOOD Routine 02/08/2023 1:28 PM CDT Leukocytosis, not otherwise specified Erythrocytosis ZULEMA SULLIVAN JAK2 SEQUENCING ANALYSIS COLLECTION, BLOOD Routine 02/08/2023 1:28 PM CDT Leukocytosis, not otherwise specified Erythrocytosis ZULEMA SULLIVAN T(9;22) BCR/ABL1 QUANTITATIVE PCR COLLECTION, BLOOD Routine 02/08/2023 1:28 PM CDT Leukocytosis, not otherwise specified Erythrocytosis ZULEMA SULLIVAN KIT MUTATION DETECTION IN MAST CELL DISEASE ANALYSIS COLLECTION, BLOOD Routine 02/08/2023 1:28 PM CDT Leukocytosis, not otherwise specified Erythrocytosis ZULEMA SULLIVAN ABL1 KINASE DOMAIN MUTATION ANALYSIS (QUALITATIVE) COLLECTION, BLOOD Routine 02/08/2023 1:28 PM CDT Leukocytosis, not otherwise specified Erythrocytosis FREE THYROXINE Routine 02/08/2023 1:28 PM CDT Leukocytosis, not otherwise specified Erythrocytosis THYROID STIMULATING HORMONE Routine 02/08/2023 1:28 PM CDT Leukocytosis, not otherwise specified Erythrocytosis PERIPHERAL SMR FOR DOC REVIEW Routine 02/08/2023 1:28 PM CDT Leukocytosis, not otherwise specified Erythrocytosis HEMOGLOBIN A1C Routine 02/08/2023 1:28 PM CDT Leukocytosis, not otherwise specified Erythrocytosis COMPREHENSIVE METABOLIC PANEL Routine 02/08/2023 1:28 PM CDT Leukocytosis, not otherwise specified Erythrocytosis COMPLETE BLOOD COUNT W/ DIFFERENTIAL Routine 02/08/2023 1:28 PM CDT Leukocytosis, not otherwise specified Erythrocytosis LIPID PANEL Routine 02/08/2023 1:28 PM CDT Leukocytosis, not otherwise specified Erythrocytosis after 09/13/2022 Results * KIT Mutation Detection in Mast Cell Disease Collection, Blood (02/08/2023 1:28 PM CDT) [facility] Signature Molecular Diagnostics (Received) Yes [facility] Blood 02/08/2023 1:28 PM CDT 02/08/2023 3:11 PM CDT Nick POOLE MD BLOOD IRENA ECTIONS Performing Organization Address City/[facility]/ZIP Co de Phone Number [facility] Unless otherwise noted, all lab tests performed by: Division of Pathology and Laboratory Medicine [address] [place] [phone] * JAK2 Mutation Analysis Collection, Blood (02/08/2023 1:28 PM CDT) [facility] Molecular Diagnostics (Received) Yes [facility] Blood 02/08/2023 1:28 PM CDT 02/08/2023 3:11 PM CDT Nick POOLE MD BLOOD IRENA ECTIONS Performing Organization Address City/[facility] Co de Phone Number [facility] Unless otherwise noted, all lab tests performed by: Division of Pathology and Laboratory Medicine [address] [place] [phone] * CALR Mutation Analysis Collection, Blood (02/08/2023 1:28 PM CDT) Pathologist [facility] Molecular Diagnostics (Received) Yes [facility] Blood 02/08/2023 1:28 PM CDT 02/08/2023 3:11 PM CDT Nick POOLE MD BLOOD IRENA ECTIONS Performing Organization Address City/[facility]/ZIP Co de Phone Number [facility] Unless otherwise noted, all lab tests performed by: Division of Pathology and Laboratory Medicine [address] [place] [phone] * ASXL1 Collection, Blood (02/08/2023 1:28 PM CDT) [facility] Molecular Diagnostics (Received) Yes [facility] Blood 02/08/2023 1:28 PM CDT 02/08/2023 3:11 PM CDT Nick POOLE MD BLOOD IRENA ECTIONS [facility] Unless otherwise noted, all lab tests performed by: Division of Pathology and Laboratory Medicine [address] [place] [id number] * ABL1 Kinase Domain Mutation Analysis (Qualitative) Collection, Blood (02/08/2023 1:28 PM CDT) Pathologist [facility] Molecular Diagnostics (Received) Yes [facility] Blood 02/08/2023 1:28 PM CDT 02/08/2023 3:11 PM CDT Nick POOLE MD BLOOD IRENA ECTIONS Performing Organization Address City/[facility] Co de Phone Number [facility] Unless otherwise noted, all lab tests performed by: Division of Pathology and Laboratory Medicine [address] [place] [phone] * t(9;22) BCR/ABL1 Quantitative PCR Collection, Blood (02/08/2023 1:28 PM CDT) Pathologist [facility] Molecular Diagnostics (Received) Yes [facility] Blood 02/08/2023 1:28 PM CDT 02/08/2023 3:11 PM CDT Nick POOLE MD BLOOD IRENA ECTIONS Performing Organization Address City/[facility]/ZIP Co de Phone Number [facility] Unless otherwise noted, all lab tests performed by: Division of Pathology and Laboratory Medicine [address] [place] [phone] * EndLeukemia Mutation Panel V1 Interpretation and Report (02/08/2023 1:28 PM CDT) 02/08/2023 1:28 PM CDT Nick [facility] (ZULEMA SULLIVAN) Performing Organization Address City/[facility]/ZIP Co de Phone Number [facility] Unless otherwise noted, all lab tests performed by: Division of Pathology and Laboratory Medicine [address] [place] [address], [place] [address] * .Serum Creatinine (02/08/2023 1:28 PM CDT) Creatinine 0.59 0.51 - 0.95 mg/dL [facility] Comment:Testing Performed at [facility], [address] [place] [address], [address], [place] [address] Blood 02/08/2023 1:28 PM CDT 02/08/2023 1:50 PM CDT Nick Morris MD LAB BLOOD ORDERABLES [address] [place] [address] * (ABNORMAL) .CBC (02/08/2023 1:28 PM CDT) Pathologist [facility] WBC 11.8(H) 4.0 - 11.0 K/uL [facility] RBC 5.54(H) 4.00 - 5.50 M/uL [facility] Hgb 17.6(H) 12.0 - 16.0 gm/dL [facility] Comment:As part of CBC or as an individual orderable testing performed at [facility], [address] [place] [address], [address], [place] [id number] Hct 51.8(H) 37.0 - 47.0 % [facility] Comment:As part of CBC or as an individual orderable testing performed at [facility], [address] [place] [address], [address], [place] [address] MCV 94 82 - 98 fL [facility] MCH 31.8(H) 27.0 - 31.0 pg [facility] MCHC 34.0 31.0 - 36.0 gm/dL [facility] RDW-SD 45.4 35.1 - 46.3 fL [facility] RDW-CV 13.2 12.0 - 15.5 % [facility] Platelet count 280 140 - 440 K/uL [facility] Comment:As part of CBC or as an individual orderable testing performed at [facility], [address] [place] [address], [address], [place] [address] MPV 8.6 4.0 - 10.4 fL [facility] INRBC 0.0 <=0.0 % [facility] Comment: The INRBC (instrument NRBC) value reflects the enumeration of nucleated red blood cells contained in a 200uL sample of whole blood analyzed by the instrument. This value may differ from the NRBC value reported in a manual differential, which is based on a 100 cell differential. As part of CBC testing performed at [address], [address], [place] [address] Blood 02/08/2023 1:28 PM CDT 02/08/2023 1:52 PM CDT Nick Morris MD LAB BLOOD ORDERABLES [address] [place] [address] * Glomerular Filtration Rate (02/08/2023 1:28 PM CDT) eGFR 103 >=60 mL/min/1.7 3 sq. m [facility] Comment: The eGFRcr is calculated with the 2020 CKD-EPI creatinine equation using creatinine, patient's age, and sex for adults 18 years of age and older. Other factors, especially muscle mass, may affect accuracy and need to be considered. According to the Kidney Disease: Improving Global Outcomes (KDIGO) CKD Work Group 2012 Clinical Practice Guideline, chronic kidney disease (CKD) is defined as the abnormalities of kidney structure or function, present for more than 3 months, with implications for health. CKD should be classified by cause, GFR category, and albuminuria category. KDIGO guidelines provide the following GFR categories Stage Description GFR mL/min/1.73 m2 G1* Normal or high >= 90 G2* Mildly decreased 60-89 G3a Mildly to moderately decreased 45-59 G3b Moderately to severely decreased 30-44 G4 Severely decreased 15-29 G5 Kidney failure <15 *In the absence of evidence of kidney damage, neither G1 nor G2 fulfill criteria for CKD. Testing Performed at [facility], [address] [facility] [address], [address], [place] [address] Blood 02/08/2023 1:28 PM CDT 02/08/2023 1:50 PM CDT Nick Morris MD LAB BLOOD ORDERABLES Performing Organization Address [facility] Co de Phone Number [address] [place] [address] * Fractionated Bilirubin (02/08/2023 1:28 PM CDT) Pathologist [facility] Bili Total 0.4 <=1.2 mg/dL [facility] Comment: Indocyanine Green (ICG) may cause falsely elevated bilirubin results. Total and direct bilirubin must not be measured from samples containing indocyanine green. False elevation of total bilirubin can be seen in patients with IgG concentrations above 28 g/L. Testing Performed at [facility], [address] [place] [address], [address], [place] [address] Bili Direct <0.2 <=0.3 mg/dL [facility] Comment: Indocyanine Green (ICG) may cause falsely elevated bilirubin results. Total and direct bilirubin must not be measured from samples containing indocyanine green. Testing Performed at [facility], [address] [place] [address], [address], [place] [address] Bili Indirect See Note 0.0 - 0.9 mg/dL [facility] Comment: Unable to calculate Indirect Bilirubin result due to some parameters are outside reportable range Testing Performed at [facility], [address] [place] [address], [address], [place] [address] Blood 02/08/2023 1:28 PM CDT 02/08/2023 1:50 PM CDT Nick Morris MD LAB BLOOD ORDERABLES Performing Organization Address [facility] Co de Phone Number [address] [place] [address] * Hepatitis C Virus Ab (02/08/2023 1:28 PM CDT) [facility] HCVAb. Non Reactive Non Reactive [facility] Comment: Antibody detection in the immunocompromised and immunosuppressed population may be delayed or absent entirely. Therefore serial testing, correlation with other clinical findings, and supplemental testing (if available) should be taken into consideration when interpreting the results. Blood 02/08/2023 1:28 PM CDT 02/08/2023 2:11 PM CDT Nick Morris MD LAB BLOOD ORDERABLES Performing Organization Address City/[facility] Co de Phone Number [facility] Unless otherwise noted, all lab tests performed by: Division of Pathology and Laboratory Medicine [address] [place] [phone] * t(9;22) BCR/ABL1 Quantitative PCR Interpretation and Report (02/08/2023 1:28 PM CDT) 02/08/2023 1:28 PM CDT Nick [facility] (ZULEMA SULLIVAN) Performing Organization Address [facility] Co de Phone Number [facility] Unless otherwise noted, all lab tests performed by: Division of Pathology and Laboratory Medicine [address] [place] [phone] * KIT Mutation Detection in Mast Cell Disease Interpretation and Report (02/08/2023 1:28 PM CDT) 02/08/2023 1:28 PM CDT Nick [facility] (ZULEMA SULLIVAN) Performing Organization Address [facility] Co de Phone Number [facility] Unless otherwise noted, all lab tests performed by: Division of Pathology and Laboratory Medicine [address] [place] [phone] * ABL1 Kinase Domain Mutation Analysis (Qualitative) Interpretation and Report (02/08/2023 1:28 PMCDT) 02/08/2023 1:28 PM CDT Nick [facility] (ZULEMA SULLIVAN) Performing Organization Address [facility] Co de Phone Number [facility] Unless otherwise noted, all lab tests performed by: Division of Pathology and Laboratory Medicine [address] [place] [phone] * Peripheral Smr For Doc Review (02/08/2023 1:28 PM CDT) Peripheral Smear VICKY [facility] Blood 02/08/2023 1:28 PM CDT 02/08/2023 1:45 PM CDT Nick Morris MD LAB BLOOD ORDERABLES [facility] Unless otherwise noted, all lab tests performed by: Division of Pathology and Laboratory Medicine [address] [place] [address] * (ABNORMAL) Differential (02/08/2023 1:28 PM CDT) Pathologist [facility] Total Cells 100 [facility] Comment:As part of Different ial performed at [facility], [address] [place] [address], [address], [place] [address] Neutrophil % 53.0 42.0 - 66.0 % [facility] Comment: The Neutrophil count includes Bands. As part of Differential performed at [facility] [place] [id number] [facility] [place] [address] Lymphocyte % 33.0 24.0 - 44.0 % [facility] Comment: As part of Differential performed at [facility] [address], [address] [place] [address] Monocyte % 13.0(H) 2.0 - 7.0 % [facility] Comment: As part of Differential performed at [facility] [place] [id number] [facility], [address] [place] [address] Eosinophil % 1.0 1.0 - 4.0 % [facility] Comment: As part of Differential performed at [facility] [address], [address] [place] [address] Neutrophil Abs 6.25 1.70 - 7.30 K/uL [facility] Comment: As part of Differential performed at [address], [address] [place] [address] Lymphocyte Abs 3.89 1.00 - 4.80 K/uL [facility] Comment: As part of Differential performed at [facility] [address], [address] [place] [address] Monocyte Abs 1.53(H) 0.08 - 0.70 K/uL [facility] Comment: As part of Differential performed at [facility] [address] [facility] [address], [address] [place] [address] Eosinophil Abs 0.12 0.04 - 0.40 K/uL [facility] Comment: As part of Differential performed at [facility] [address] [facility], [address] [place] [address] RBC Morph Normal Normal [facility] Comment: As part of Differential performed at [facility] [address] [facility], [address] [place] [address] PLT Morph Normal Normal [facility] Comment: As part of Differential performed at [facility] [address] [facility] [address], [address] [place] [address] Blood 02/08/2023 1:28 PM CDT 02/08/2023 1:45 PM CDT Nick Morris MD LAB BLOOD ORDERABLES [facility] [address] [facility] [address] [place] [address] * BUN (02/08/2023 1:28 PM CDT) [facility] BUN 6 6 - 23 mg/dL [facility] Comment:Testing Performed at [facility], [address] [place] [address], [address], [place] [address] Blood 02/08/2023 1:28 PM CDT 02/08/2023 1:50 PM CDT Nick Morris MD LAB BLOOD ORDERABLES [facility] [address] [place] [address]. [address] [place] [address] * (ABNORMAL) ALT (02/08/2023 1:28 PM CDT) [facility] ALT 51(H) <=33 U/L [facility] Comment:Testing Performed at [facility], [address] [place] [address], [address], [place] [address] Blood 02/08/2023 1:28 PM CDT 02/08/2023 1:50 PM CDT Nick Morris MD LAB BLOOD ORDERABLES [address] [place] [address] * (ABNORMAL) Aspartate Aminotransferase (02/08/2023 1:28 PM CDT) AST 41(H) <=32 U/L [facility] Comment:Testing Performed at [facility], [address] [place] [address], [address], [place] [address] Blood 02/08/2023 1:28 PM CDT 02/08/2023 1:50 PM CDT Nick Morris MD LAB BLOOD ORDERABLES Performing Organization Address City/[facility]/ZIP Co de Phone Number [address] [place] [address] * TSH (02/08/2023 1:28 PM CDT) Pathologist [facility] TSH 2.21 0.27 - 4.20 mcunit/mL [facility] Comment: Note: New Methodology and Reference Range change effective 12/23/2017 at 1400 Testing Performed at [facility], [address] [place] [address], [address], [place] [address] Blood 02/08/2023 1:28 PM CDT 02/08/2023 1:50 PM CDT Nick Morris MD LAB BLOOD ORDERABLES Performing Organization Address City/[facility]/ZIP Co de Phone Number 91 [address] [place] [address] * Free T4 (02/08/2023 1:28 PM CDT) Pathologist [facility] T4 Free 1.35 0.93 - 1.70 ng/dL [facility] Comment:Testing Performed at [facility] Lab [facility], [address] [place] [address], [address], [place] [address] Blood 02/08/2023 1:28 PM CDT 02/08/2023 1:50 PM CDT Nick Morris MD LAB BLOOD ORDERABLES [facility] [address] [place] [address]. [address] [place] [address] * Total Protein (02/08/2023 1:28 PM CDT) Pathologist [facility] Total Protein 7.6 6.4 - 8.3 g/dL [facility] Comment:Testing Performed at [facility] Lab [facility], [address] [address], [address], [place] [address] Blood 02/08/2023 1:28 PM CDT 02/08/2023 1:50 PM CDT Nick Morris MD LAB BLOOD ORDERABLES Performing Organization Address [facility]/ZIP Co de Phone Number [facility] [address] [place] [address]. [address] [place] [address] * Alkaline Phosphatase (02/08/2023 1:28 PM CDT) Pathologist [facility] Alk Phos 56 35 - 104 U/L [facility] Comment:Testing Performed at [facility] Lab [facility], [address] [place] [address], [address], [place] [address] Blood 02/08/2023 1:28 PM CDT 02/08/2023 1:50 PM CDT Nick Morris MD LAB BLOOD ORDERABLES Performing Organization Address City/[facility]/ZIP Co de Phone Number [facility] [address] [place] [address]. [address] [place] [address] * (ABNORMAL) Hemoglobin A1c (02/08/2023 1:28 PM CDT) Pathologist [facility] A1C 9.8(H) 4.3 - 5.6 % [facility] Comment: HbA1c values >=6.5% are diagnostic of diabetes mellitus. Diagnosis should be confirmed by repeat testing. Therapeutic Action suggested: >8.0% HbA1c; Goal of therapy: <7.0% HbA1c Blood 02/08/2023 1:28 PM CDT 02/08/2023 1:54 PM CDT Nick Morris MD LAB BLOOD ORDERABLES [facility] Unless otherwise noted, all lab tests performed by: Division of Pathology and Laboratory Medicine [address] [place] [id number] * (ABNORMAL) Glucose Level (02/08/2023 1:28 PM CDT) Glucose Level 104(H) 70 - 99 mg/dL [facility] Comment: Effective 04/01/16, the glucose reference intervals have been updated based on [place] [employer] guidelines (Standards of Medical Care in Diabetes 2016. Diabetes Care 2016; 39: S13-S22). Fasting blood glucose: Normal: 70-99 mg/dL Impaired fasting glucose (increased risk for diabetes or pre-diabetes): 100- 125 mg/dL Diabetes mellitus: >/=126 mg/dL Random blood glucose: Normal: 70-199 mg/dL Note: Random glucose >100 mg/dL is associated with increased risk for diabetes Testing Performed at [facility] Lab [facility] [employer] [facility], [address] [place] [address], [address], [place] [address] Blood 02/08/2023 1:28 PM CDT 02/08/2023 1:50 PM CDT Nick Morris MD LAB BLOOD ORDERABLES Performing Organization Address City/[facility]/ZIP Co de Phone Number [facility] [address] [place] [address]. [address] [place] [address] * (ABNORMAL) Calcium Level (02/08/2023 1:28 PM CDT) Calcium Lvl 10.6(H) 8.4 - 10.2 mg/dL [facility] Comment:Testing Performed at [facility] Lab [facility], [address] [facility], [address], [place] [address] Blood 02/08/2023 1:28 PM CDT 02/08/2023 1:50 PM CDT Nick Morris MD LAB BLOOD ORDERABLES [address] [place] [address] * Albumin Level (02/08/2023 1:28 PM CDT) Albumin Lvl 4.0 3.5 - 5.2 gm/dL [facility] Comment:Testing Performed at [facility], [address] [place] [address], [address], [place] [address] Blood 02/08/2023 1:28 PM CDT 02/08/2023 1:50 PM CDT Nick Morris MD LAB BLOOD ORDERABLES Performing Organization Address City/[facility]/ZIP Co de Phone Number [address] [place] [address] * (ABNORMAL) Lipid Panel (02/08/2023 1:28 PM CDT) Chol 194 <=199 mg/dL [facility] Comment: ATP III Classification of Total Cholesterol Primary Target of Therapy (in mg/dL): <200 Desirable 200-239 Borderline high >=240 High Trig 174(H) <=149 mg/dL [facility] Comment: ATP III Classification of Serum Triglycerides Primary Target of Therapy (in mg/dL): <150 Normal 150-199 Borderline high 200-499 High >=500 Very high Non-fasting triglycerides >200 mg/dL may be followed up with a fasting Lipid Panel. Calculated LDL-C may be falsely decreased when non-fasting triglycerides >200 mg/dL. HDL 39(L) >=40 mg/dL [facility] LDL 120(H) <=100 mg/dL [facility] Comment: ATP III Classification of LDL Cholesterol Primary Target of Therapy (in mg/dL): <100 Optimal 100-129 Near optimal/above optimal 130-159 Borderline high 160-189 High >=190 Very high VLDL 35 mg/dL [facility] Blood 02/08/2023 1:28 PM CDT 02/08/2023 8:25 PM CDT Nick Morris MD LAB BLOOD ORDERABLES [facility] Unless otherwise noted, all lab tests performed by: Division of Pathology and Laboratory Medicine [address] [place] [address] * Electrolyte Panel (02/08/2023 1:28 PM CDT) Sodium Lvl 139 136 - 145 mEq/L [facility] Comment:Testing Performed at [facility] Lab [facility], [address], [address], [place] [address] Potassium Lvl 3.8 3.5 - 5.1 mEq/L [facility] Comment:Testing Performed at [facility] Lab [facility], [address], [address], [place] [address] Chloride 101 98 - 107 mEq/L [facility] Comment:Testing Performed at [facility] Lab [facility], [address], [address], [place] [address] CO2 25 22 - 29 mEq/L [facility] Comment:Testing Performed at [facility] Lab [facility], [address], [address], [place] [address] Anion Gap 13 4 - 14 mEq/L [facility] Comment:Testing Performed at [facility] Lab [facility], [address], [address], [place] [address] Blood 02/08/2023 1:28 PM CDT 02/08/2023 1:50 PM CDT Nick Morris MD LAB BLOOD ORDERABLES [facility] [address] [place] [address] after 09/13/2022 Care Teams Paster Hat Lining Relationship Specialty Start Date End Date Svetlana Talamantes MD [address] [address] PCP - External Referring Otolaryngology 06/29/22 Nick Morris MD [address] [place] [place] [id number] PCP - General Hematology and Oncology 11/18/22
--- NOTE | 2023-09-13 14:54 | RAD REPORT ---
EXAM DESCRIPTION: CT - Knee Right Wo Cont - 09/13/2023 2:12 pm CLINICAL HISTORY: knee pain COMPARISON: No comparisons TECHNIQUE: Thin cut axial CT imaging of the abdomen and pelvis was performed without IV contrast. Mu ltiplanar reformats were generated and reviewed. All CT scans are performed using dose optimization technique as appropriate and may include automated exposure control or mA/KV adjustment according to patient size. FINDINGS: No acute fracture, trabecular compression, or dislocation. No other suspicious focal osseo us abnormality. Advanced tricompartmental osteoarthritic changes with marginal spurring. Joint space narrowing, up to moderate in degree along the medial weight-bearing articulation, and mild in degree along the latera l weight-bearing and lateral patellofemoral articulations. Pronounced marginal osteophytosis, includi ng osteophytes along the intercondylar notch as well as an ovoid corticated osseous density separate from adjacent bone measuring 1.5 cm in greatest dimension, findings which may relate to chronic ACL t earing. Ligamentous structures are not well evaluated on CT. Small suprapatellar joint effusion. Surrounding soft tissues and included muscular structures are unremarkable. IMPRESSION: No acute osseous abnormality. Advanced tricompartmental osteoarthritic changes, and osseous densities at the intercondylar notch wh ich may relate to sequelae of chronic ACL injury. Small suprapatellar joint effusion.
--- NOTE | 2023-09-13 14:59 | EDPHYS ---
Physician Documentation [facility] Name: Margo Moise Age: 62 yrs Sex: Female : 1960 Arrival Date: 09/13/2023 Time: 11:42 Bed DX1 Private MD: ED Physician Denyns Morillo HPI: 09/13 14:06 This 62 yrs old Female presents to ER via Wheelchair with complaints of Knee Pain. snw 14:06 Onset: The symptoms/episode began/occurred suddenly, 2 day(s) ago. It is unknown snw whether or not the patient has had similar symptoms in the past. It is unknown whether or not the patient has recently seen a physician. chronic bilateral knee pain. Historical: - Allergies: 12:47 Latex; iw - PMHx: 12:47 Anxiety; elevated red blood count; elevated white count; Hypertensive disorder; iw depressive disorder; Chronic pain; BILATERAL KNEES; - Immunization history:: Adult Immunizations up to date. - Social history:: Smoking status: Patient denies any tobacco usage or history of. ROS: 14:04 Constitutional: Negative for fever, chills, and weight loss, Eyes: Negative for injury, snw pain, redness, and discharge, ENT: Negative for injury, pain, and discharge, Neck: Negative for injury, pain, and swelling, Cardiovascular: Negative for chest pain, palpitations, and edema, Respiratory: Negative for shortness of breath, cough, wheezing, and pleuritic chest pain, Abdomen/GI: Negative for abdominal pain, nausea, vomiting, diarrhea, and constipation, Back: Negative for injury and pain, : Negative for injury, bleeding, discharge, and swelling, Skin: Negative for injury, rash, and discoloration, Neuro: Negative for headache, weakness, numbness, tingling, and seizure, Psych: Negative for depression, anxiety, suicide ideation, homicidal ideation, and hallucinations, 14:04 MS/extremity: Positive for injury or acute deformity, chronic bone on bone knee pain, twisted right knee two days ago, unable to bear weight since, Exam: 14:02 Constitutional: This is a well developed, well nourished patient who is awake, alert, snw and in no acute distress. Head/Face: Normocephalic, atraumatic. Eyes: Pupils equal round and reactive to light, extra-ocular motions intact. Lids and lashes normal. Conjunctiva and sclera are non-icteric and not injected. Cornea within normal limits. Periorbital areas with no swelling, redness, or edema. ENT: Nares patent. No nasal discharge, no septal abnormalities noted. Tympanic membranes are normal and external auditory canals are clear. Oropharynx with no redness, swelling, or masses, exudates, or evidence of obstruction, uvula midline. Mucous membranes moist. Neck: Trachea midline, no thyromegaly or masses palpated, and no cervical lymphadenopathy. Supple, full range of motion without nuchal rigidity, or vertebral point tenderness. No Meningismus. Chest/axilla: Normal chest wall appearance and motion. Nontender with no deformity. No lesions are appreciated. Cardiovascular: Regular rate and rhythm with a normal S1 and S2. No gallops, murmurs, or rubs. Normal PMI, no JVD. No pulse deficits. Respiratory: Lungs have equal breath sounds bilaterally, clear to auscultation and percussion. No rales, rhonchi or wheezes noted. No increased work of breathing, no retractions or nasal flaring. Abdomen/GI: Soft, non-tender, with normal bowel sounds. No distension or tympany. No guarding or rebound. No evidence of tenderness throughout. Back: No spinal tenderness. No costovertebral tenderness. Full range of motion. Skin: Warm, dry with normal turgor. Normal color with no rashes, no lesions, and no evidence of cellulitis. Neuro: Awake and alert, GCS 15, oriented to person, place, time, and situation. Cranial nerves II-XII grossly intact. Motor strength 5/5 in all extremities. Sensory grossly intact. Cerebellar exam normal. Normal gait. Psych: Awake, alert, with orientation to person, place and time. Behavior, mood, and affect are within normal limits. 14:02 Musculoskeletal/extremity: Extremities: grossly normal except: noted in the right leg: decreased ROM, tenderness, unable to bear weight, Vital Signs: 12:46 BP 100 / 72; Pulse 73; Resp 16; Temp 98; Pulse Ox 100% ; Weight 85.28 kg; Height 5 ft. iw 1 in. ; 12:46 Body Mass Index 35.52 (85.28 kg, 154.94 cm) iw MDM: 13:27 Patient medically screened. snw 15:00 Differential diagnosis: dislocation, contusion, abrasion, tendonitis. Data reviewed: snw vital signs, nurses notes. I considered the following discharge prescriptions or medication management in the emergency department Medications were administered in the Emergency Department. See MAR. Care significantly affected by the following chronic conditions: Hypertension. Counseling: I had a detailed discussion with the patient and/or guardian regarding the historical points, exam findings, and any diagnostic results supporting the discharge/admit diagnosis, radiology results, the need for outpatient follow up, for definitive care, a orthopedic surgeon, to return to the emergency department if symptoms worsen or persist or if there are any questions or concerns that arise at home. Special discussion: Based on the history and exam findings, there is no indication for further emergent testing or inpatient evaluation. I discussed with the patient/guardian the need to see the orthopedic surgeon for further evaluation of the symptoms. I discussed with the patient/guardian the need to see the primary care provider for further evaluation of the symptoms. 09/13 13:58 Order name: Knee Right Wo Cont; Complete Time: 14:56 EDMS 09/13 14:59 Order name: Knee Immobilizer snw Administered Medications: 16:00 Drug: HYDROcodone-acetaminophen PO 5 mg-325 mg 1 tabs PO once Route: PO; bp Disposition: 18:42 I was immediately available on-site in the Emergency Department for consultation in the ms3 care of the patient. Disposition Summary: 09/13/23 14:58 Discharge Ordered Notes: Location: Home snw Condition: Stable snw Diagnosis - Other internal derangements of right knee snw - Osteoarthritis of knee, unspecified snw Followup: snw - With: Emergency Department - When: As needed - Reason: Worsening of condition Followup: snw - With: Private Physician - When: 5 - 6 days - Reason: Recheck today's complaints, Continuance of care, Re-evaluation by your physician Discharge Instructions: - Discharge Summary Sheet snw - Arthritis snw - How to Use a Knee Brace snw - Osteoarthritis snw - Knee Injection snw - Knee Arthroscopy snw - Heat Therapy snw - Total Knee Replacement snw Forms: - Medication Reconciliation Form snw - Thank You Letter snw - Antibiotic Education snw - Prescription Opioid Use snw - Patient Portal Instructions snw - Leadership Thank You Letter snw Prescriptions: - Mobic 7.5 mg Oral Tablet - take 1 tablet ORAL route once daily take with food; 20 tablet; Refills: 0, snw Product Selection Permitted Signatures: Dispatcher [employer] EDRosa Gamez, YURIY-C ORNAMENTAL MACHINE OPERATOR-Csnw Janay Claudio, RN Kalin Segundo RN RN Dennys Yo, DO MOYER ms3 Corrections: (The following items were deleted from the chart) 14:09 13:30 Knee Right 3 View+RAD.RAD.[email or web address] ordered. EDMS EDMS
--- NOTE | 2023-09-13 14:59 | ER ---
Nurse's Notes [facility] Name: Margo Moise Age: 62 yrs Sex: Female : 1960 Arrival Date: 09/13/2023 Time: 11:42 Bed DX1 Private MD: Diagnosis: Other internal derangements of right knee;Osteoarthritis of knee, unspecified Presentation: 09/13 12:46 Chief complaint: Patient states: R KNEE PAIN x2 DAYS. Coronavirus screen: At this time, iw the client does not indicate any symptoms associated with coronavirus-19. Ebola Screen: No symptoms or risks identified at this time. Initial Sepsis Screen: Does the patient meet any 2 criteria? No. Patient's initial sepsis screen is negative. Does the patient have a suspected source of infection? No. Patient's initial sepsis screen is negative. Risk Assessment: Do you want to hurt yourself or someone else? Patient reports no desire to harm self or others. Onset of symptoms is unknown. 12:46 Method Of Arrival: Wheelchair iw 12:46 Acuity: NING 4 iw Triage Assessment: 12:47 General: Appears in no apparent distress. Behavior is calm, cooperative, appropriate iw for age. Pain: Complains of pain in posterior aspect of right knee. Historical: - Allergies: 12:47 Latex; iw - PMHx: 12:47 Anxiety; elevated red blood count; elevated white count; Hypertensive disorder; iw depressive disorder; Chronic pain; BILATERAL KNEES; - Immunization history:: Adult Immunizations up to date. - Social history:: Smoking status: Patient denies any tobacco usage or history of. Vital Signs: 12:46 BP 100 / 72; Pulse 73; Resp 16; Temp 98; Pulse Ox 100% ; Weight 85.28 kg; Height 5 ft. iw 1 in. ; 12:46 Body Mass Index 35.52 (85.28 kg, 154.94 cm) iw ED Course: 11:45 Patient arrived in ED. mr 12:47 Triage completed. iw 12:47 Arm band placed on. iw 13:29 Mervat Rangel PA-C is PHCP. sb4 13:29 Dennys Morillo DO is Attending Physician. sb4 13:32 Rosa Gan FNP-C is PHCP. ms3 14:13 Knee Right Wo Cont In Process Unspecified. EDMS 15:55 Kalin Cleary, RN is Primary Nurse. bp Administered Medications: 16:00 Drug: HYDROcodone-acetaminophen PO 5 mg-325 mg 1 tabs PO once Route: PO; bp Outcome: 14:58 Discharge ordered by . marianne 17:17 Patient left the ED. iw Signatures: Dispatcher [employer] EDFL Rosa Gan, ALTERATIONS WORKROOM CLERK-C ALTERATIONS WORKROOM CLERK-Csnw Lou, Malissa, Reg Reg mr Janay Claudio, RN RN iw Kalin Cleary, RN RN bp Dennys Morillo, DO ms3 Mervat Rangel PA-C PALuannC sb4
[2023-09-13 17:46] VITALS: BP 100/72; TEMP 98; O2SAT 100
== END ==
LOC: ER 11:42
DX: M23.8X1 Other internal derangements of right knee (principal); M17.0 Bilateral primary osteoarthritis of knee; Z91.040 Latex allergy status
CPT/HCPCS: 73700; 99282